=== PATIENT | male | born 1960 | race Caucasian/White ===

== ENCOUNTER → 2017-02-06 | Outpatient (CLI) | payer BC ==
--- NOTE | 2017-02-06 13:29 | XR ---
EXAMINATION TYPE: XR KUB DATE OF EXAM: 02/06/2017 1:17 PM HISTORY: Pain Comparison: 01/14/2014 Single KUB is submitted for interpretation. Findings: Right renal calculi: Multiple right-sided renal calculi seen. The largest lower pole right kidney darian sures 6.5 mm. Right ureteral calculi: None Visualized. Left renal calculi: Multiple left-sided renal calculi seen the largest midpole left kidney measures 7.5 mm. Left ureteral calculi: None Visualized. Pelvic calcifications: Phleboliths and prostate calcifications seen. Bowel gas pattern is unremarkable. No free air. No mass effects. IMPRESSION: 1. Bilateral nephrolithiasis much improved from prior examination. No definite ureteral calculi seen at this time.
== END | disposition home or self-care (01) ==
LOC: RADXRMAIN 13:06
PROVIDERS: ATTEND Urology
DX: N20.0 Calculus of kidney (principal)
CPT/HCPCS: 74000

== ENCOUNTER → 2017-02-06 | Outpatient (CLI) | payer BC | END | disposition home or self-care (01) | LOC: LABWHC1 13:23 | PROVIDERS: ATTEND Urology | DX: R97.20 Elevated prostate specific antigen [PSA] (principal) | CPT/HCPCS: 36415; 84153 ==

== ENCOUNTER → 2017-06-20 | Outpatient (CLI) | payer BC ==
[2017-06-20 11:57] LABS: Basophils % (A) 0 %; CH 30.6; CHCM 35.7; Eosinophils # (A) 0.3 k/uL (0-0.7); Eosinophils % (A) 3 %; HCT 41.1 % (39.0-53.0); HDW 3.01; HGB 14.6 gm/dL (13.0-17.5); Luc # (Auto) 0.17; Luc % (Auto) 2; Lymphocytes # (A) 2.2 k/uL (1.0-4.8); Lymphocytes % (A) 23 %; MCH 30.4 pg (25.0-35.0); MCHC 35.5 g/dL (31.0-37.0); MCV 85.9 fL (80.0-100.0); Mean Platelet Volume 7.1; Monocytes # (A) 0.6 k/uL (0-1.0); Monocytes % (A) 6 %; Neutrophils # (A) 6.2 k/uL (1.3-7.7); Neutrophils % (A) 66 %; RBC 4.79 m/uL (4.30-5.90); RDW 13.1 % (11.5-15.5); WBC 9.5 k/uL (3.8-10.6); WBC (Perox) 9.77
[2017-06-20 12:08] LABS: ALT 42 U/L (21-72); AST 22 U/L (17-59); Anion Gap 12 mmol/L; Blood Urea Nitrogen 18 mg/dL (9-20); Carbon Dioxide 25 mmol/L (22-30); Chloride 105 mmol/L (98-107); Cholesterol 150 mg/dL (<200); Creatine Kinase 84 U/L (55-170); Glucose 106 mg/dL (74-99); HDL Cholesterol 40 mg/dL (40-60); Non-African American GFR(MDRD) >60 (>60 ml/min/1.73 sqM); Potassium 4.5 mmol/L (3.5-5.1); Sodium 142 mmol/L (137-145); Triglycerides 139 mg/dL (<150)
== END | disposition home or self-care (01) ==
LOC: LABWHC1 11:08
PROVIDERS: ATTEND Internal Medicine Cardiovascular Disease
DX: I25.10 Atherosclerotic heart disease of native coronary artery without angina pectoris (principal); I10 Essential (primary) hypertension; E78.2 Mixed hyperlipidemia
CPT/HCPCS: 36415; 80051; 80061; 82550; 82565; 82947; 84450; 84460; 84520; 85025

== ENCOUNTER → 2018-07-03 | Outpatient (CLI) | payer BC ==
[2018-07-03 12:02] LABS: ALT 43 U/L (21-72); AST 21 U/L (17-59); Albumin 4.2 g/dL (3.5-5.0); Alkaline Phosphatase 87 U/L (38-126); Anion Gap 7 mmol/L; Bilirubin, Delta 0.2 mg/dL (0.0-0.2); Bilirubin,Unconjugated 0.5 mg/dL (0.0-1.1); Blood Urea Nitrogen 14 mg/dL (9-20); Calcium 9.6 mg/dL (8.4-10.2); Carbon Dioxide 29 mmol/L (22-30); Chloride 104 mmol/L (98-107); Cholesterol 135 mg/dL (<200); Creatine Kinase 89 U/L (55-170); Glucose 110 mg/dL (74-99); HDL Cholesterol 43 mg/dL (40-60); LDL Cholesterol,Calculated 60 mg/dL (0-99); Potassium 4.7 mmol/L (3.5-5.1); Sodium 140 mmol/L (137-145); Total Bilirubin 0.7 mg/dL (0.2-1.3); Total Protein 6.6 g/dL (6.3-8.2); Triglycerides 158 mg/dL (<150)
[2018-07-03 12:06] LABS: Basophils # (A) 0.1 k/uL (0-0.2); Basophils % (A) 1 %; Eosinophils # (A) 0.3 k/uL (0-0.7); Eosinophils % (A) 3 %; HGB 13.9 gm/dL (13.0-17.5); Lymphocytes # (A) 1.8 k/uL (1.0-4.8); Lymphocytes % (A) 22 %; MCH 29.5 pg (25.0-35.0); MCHC 34.1 g/dL (31.0-37.0); MCV 86.7 fL (80.0-100.0); Mean Platelet Volume 7.4; Monocytes # (A) 0.6 k/uL (0-1.0); Monocytes % (A) 7 %; Neutrophils # (A) 5.1 k/uL (1.3-7.7); Neutrophils % (A) 65 %; Platelet Count 202 k/uL (150-450); RBC 4.72 m/uL (4.30-5.90); WBC 7.8 k/uL (3.8-10.6)
[2018-07-03 12:32] LABS: Prostate Specific Antigen 3.96 ng/mL (0.00-4.00)
[2018-07-03 17:41] LABS: GGT 15 U/L (15-73); LDH 400 U/L (313-618); Phosphorus 4.2 mg/dL (2.5-4.5)
[2018-07-03 19:02] LABS: Hemoglobin A1C 5.6 % (4.0-6.0)
== END | disposition home or self-care (01) ==
LOC: LABWHC1 10:50
PROVIDERS: ATTEND Internal Medicine Cardiovascular Disease
DX: I25.10 Atherosclerotic heart disease of native coronary artery without angina pectoris (principal); E78.5 Hyperlipidemia, unspecified; Z79.899 Other long term (current) drug therapy
CPT/HCPCS: 36415; 80053; 80061; 82248; 82550; 82977; 83036; 83615; 84100; 84153; 84550; 85025

== ENCOUNTER → 2018-08-19 | Outpatient (CLI) | payer BC ==
[2018-08-19 12:54] LABS: Anion Gap 10 mmol/L; Blood Urea Nitrogen 15 mg/dL (9-20); Carbon Dioxide 27 mmol/L (22-30); Chloride 103 mmol/L (98-107); Potassium 4.2 mmol/L (3.5-5.1); Sodium 140 mmol/L (137-145)
== END | disposition home or self-care (01) ==
LOC: LABWHC1 11:34
PROVIDERS: ATTEND Internal Medicine Cardiovascular Disease
DX: I10 Essential (primary) hypertension (principal); Z79.899 Other long term (current) drug therapy
CPT/HCPCS: 36415; 80051; 82565; 84520

== ENCOUNTER → 2019-07-08 | Outpatient (CLI) | payer BC ==
[2019-07-08 09:22] LABS: Basophils # (A) 0.1 k/uL (0-0.2); Basophils % (A) 1 %; Eosinophils # (A) 0.3 k/uL (0-0.7); Eosinophils % (A) 4 %; HCT 43.1 % (39.0-53.0); HGB 14.7 gm/dL (13.0-17.5); Lymphocytes # (A) 1.7 k/uL (1.0-4.8); Lymphocytes % (A) 19 %; MCH 29.8 pg (25.0-35.0); MCHC 34.1 g/dL (31.0-37.0); MCV 87.4 fL (80.0-100.0); Mean Platelet Volume 7.8; Monocytes # (A) 0.6 k/uL (0-1.0); Monocytes % (A) 7 %; Neutrophils % (A) 68 %; Platelet Count 216 k/uL (150-450); RBC 4.93 m/uL (4.30-5.90); RDW 15.5 % (11.5-15.5); WBC 8.7 k/uL (3.8-10.6)
[2019-07-08 18:07] LABS: African American GFR (CKD) 83.5 (60.0-200.0); Albumin 4.2 g/dL (3.80-4.90); Albumin/Globulin Ratio 2.1 (1.60-3.17); Anion Gap 9.4 mmol/L (4.00-12.00); BUN/Creat Ratio 11.82 Ratio (12.00-20.00); Calcium 9.5 mg/dL (8.7-10.3); Carbon Dioxide 26.6 mmol/L (21.6-31.8); LDL Cholesterol,Calculated 69.4 mg/dL (0.0-131.0); Potassium 4.1 mmol/L (3.5-5.5); Total Bilirubin 0.7 mg/dL (0.3-1.2); Total Protein 6.2 g/dL (6.2-8.2); Uric Acid 5.3 mg/dL (3.7-8.7); VLDL Calculation 27.6 mg/dL (5.00-40.00)
[2019-07-08 18:15] LABS: T4, Free (Free Thyroxine) 1.1 ng/dL (0.80-1.80)
[2019-07-08 18:41] LABS: Hemoglobin A1C 6.1 % (4.0-6.0)
== END | disposition home or self-care (01) ==
LOC: LABWHC1 08:38
PROVIDERS: ATTEND Internal Medicine Cardiovascular Disease
DX: E78.5 Hyperlipidemia, unspecified (principal); I25.10 Atherosclerotic heart disease of native coronary artery without angina pectoris
CPT/HCPCS: 36415; 80053; 80061; 82977; 83036; 83615; 84100; 84153; 84439; 84443; 84550; 85025

== ENCOUNTER 2020-06-21 08:35 | Day surgery (SDC) | payer BC ==
[~2020-06-21 08:35] MED LIST: LACTATED RINGERS 1,000 ML IV SCH
[2020-06-21 09:16] VITALS: TEMP 97.8
[2020-06-21] MEDS ORDERED: LACTATED RINGERS 1,000 ML IV ONE (09:17)
[2020-06-21] MEDS ORDERED: LIDOCAINE 1% (10MG/ML) FOR IV START INTRADERMA ONE (09:18)
--- NOTE | 2020-06-21 09:53 | P.GSHP ---
History of Present Illness H&P Date: 06/21/20 Chief Complaint: Colon cancer screening A today for screening colonoscopy. Last colonoscopy 10 years ago. No bowel complaints. Past Medical History Past Medical History: Coronary Artery Disease (CAD), Hyperlipidemia, Osteoarthritis (OA), Prostate Disorder Additional Past Medical History / Comment(s): RENAL CALCULI. HEMOROIDS. History of Any Multi-Drug Resistant Organisms: None Reported Past Surgical History: Coronary Bypass/CABG, Heart Catheterization With Stent Additional Past Surgical History / Comment(s): TURP 2011. LITHOTRIPSY. Past Anesthesia/Blood Transfusion Reactions: No Reported Reaction Date of Last Stent Placement:: 2018 Past Psychological History: No Psychological Hx Reported Smoking Status: Never smoker Past Alcohol Use History: Occasional Additional Drug Use History / Comment(s): [employer] Medications and Allergies Home Medications Medication Instructions Recorded Confirmed Type Aspirin [Adult Low Dose Aspirin EC] 81 mg PO DAILY 06/17/20 06/17/20 History Atorvastatin [Lipitor] 80 mg PO HS 06/17/20 06/17/20 History Calcium Carbonate [Tums] 1 - 2 tab PO DAILY PRN 06/17/20 06/17/20 History Clopidogrel [Plavix] 75 mg PO QAM 06/17/20 06/17/20 History Hydrochlorothiazide 25 mg PO QAM 06/17/20 06/17/20 History Metoprolol Succinate [Toprol XL] 100 mg PO HS 06/17/20 06/17/20 History Ramipril 10 mg PO QAM 06/17/20 06/17/20 History Allergies Allergy/AdvReac Type Severity Reaction Status Date / Time No Known Allergies Allergy Verified 06/17/20 11:18 Surgical - Exam Vital Signs Temp Pulse Resp BP Pulse Ox 97.8 F 57 L 18 169/91 98 06/21/20 09:15 06/21/20 09:15 06/21/20 09:15 06/21/20 09:15 06/21/20 09:15 Physical exam: General: Well-developed, well-nourished HEENT: Normocephalic, sclerae nonicteric Abdomen: Nontender, nondistended Extremities: No edema Neuro: Alert and oriented Assessment and Plan (1) Colon cancer screening Narrative/Plan: Will proceed with colonoscopy at this time Current Visit: Yes Status: Acute Code(s): Z12.11 - ENCOUNTER FOR SCREENING FOR MALIGNANT NEOPLASM OF COLON SNOMED Code(s): 767153322
[2020-06-21] MEDS ORDERED: PROPOFOL 10 MG/ML 20 ML VIAL IV ONE (09:58)
--- NOTE | 2020-06-21 10:17 | P.PCN ---
Date of Procedure: 06/21/20 Procedure(s) Performed: PREOPERATIVE DIAGNOSIS: Colon cancer screening POSTOPERATIVE DIAGNOSIS: Diverticulosis PROCEDURE: Colonoscopy ANESTHESIA: MAC SURGEON: Todd Hamlin M.D. SPECIMENS: None ENDOSCOPIC PROCEDURE: The patient was placed on the endoscopy table in the left decubitus position. The Olympus colonoscope was inserted into the anus and passed under direct visualization to the base of the cecum. The appendiceal orifice was visualized. From that point the scope was slowly withdrawn inspe cting all surfaces carefully. There were no neoplastic inflammatory or polypoid lesions throughout the cecum, ascending, transverse, descending, sigmoid and rectum. There was mild diverticulosis noted scattered throughout the colon. Retroflexion at the anus revealed no evidence of significant hemorrhoidal disease. Digital rectal examination was normal. No evidence of fissures or significant hemorrhoids noted at this time. The patient was taken to the recovery room in stable condition per anesthesia guidelines. RECOMMENDATIONS: Increase fiber. Follow-up colonoscopy 10 years.
[2020-06-21 11:00] VITALS: RESP 20
[2020-06-21 11:04] VITALS: BP 148/90; PULSE 70
== END 2020-06-21 11:04 | disposition home or self-care (01) ==
LOC: ORWHC2ENDO 08:35
PROVIDERS: ATTEND Surgery
DX: K57.30 Diverticulosis of large intestine without perforation or abscess without bleeding (principal); Z87.19 Personal history of other diseases of the digestive system; I25.10 Atherosclerotic heart disease of native coronary artery without angina pectoris; E78.5 Hyperlipidemia, unspecified; M19.90 Unspecified osteoarthritis, unspecified site; N42.9 Disorder of prostate, unspecified; Z87.442 Personal history of urinary calculi; Z95.1 Presence of aortocoronary bypass graft; Z95.5 Presence of coronary angioplasty implant and graft; Z79.82 Long term (current) use of aspirin; Z79.02 Long term (current) use of antithrombotics/antiplatelets; Z79.899 Other long term (current) drug therapy
CPT/HCPCS: 45378; J2704

== ENCOUNTER → 2020-07-07 | Outpatient (CLI) | payer BC ==
[2020-07-07 08:29] LABS: HCT 43.2 % (39.0-53.0); HGB 14.6 gm/dL (13.0-17.5); MCH 29.2 pg (25.0-35.0); MCHC 33.8 g/dL (31.0-37.0); MCV 86.5 fL (80.0-100.0); Platelet Count 251 k/uL (150-450); RDW 13.5 % (11.5-15.5); WBC 9.5 k/uL (3.8-10.6)
[2020-07-07 16:54] LABS: African American GFR (CKD) 74.7 (60.0-200.0); Albumin 4.3 g/dL (3.80-4.90); Albumin/Globulin Ratio 2.05 (1.60-3.17); Anion Gap 8.8 mmol/L (4.00-12.00); BUN/Creat Ratio 10.83 Ratio (12.00-20.00); Calcium 9.4 mg/dL (8.7-10.3); Carbon Dioxide 28.2 mmol/L (21.6-31.8); Chol/HDL Ratio 4.03; Globulin 2.1 g/dL (1.6-3.3); LDL Cholesterol,Calculated 66.4 mg/dL (0.0-131.0); Non-African American GFR(CKD) 64.4 (60.0-200.0); Total Bilirubin 1.3 mg/dL (0.2-1.2); Total Protein 6.4 g/dL (6.2-8.2); VLDL Calculation 42.6 mg/dL (5.00-40.00)
[2020-07-07 17:02] LABS: Prostate Specific Antigen 4.6 ng/mL (0.0-4.5)
== END | disposition home or self-care (01) ==
LOC: LABWHC1 07:59
PROVIDERS: ATTEND Internal Medicine Cardiovascular Disease
DX: E78.5 Hyperlipidemia, unspecified (principal); Z12.5 Encounter for screening for malignant neoplasm of prostate; I10 Essential (primary) hypertension
CPT/HCPCS: 36415; 80053; 80061; 82550; 84153; 85027

== ENCOUNTER → 2021-11-01 | Outpatient (CLI) | payer BC ==
[2021-11-01 15:35] LABS: Basophils # (A) 0.04 X 10*3/uL (0.00-0.10); Basophils % (A) 0.5 %; Eosinophils # (A) 0.33 X 10*3/uL (0.04-0.35); Eosinophils % (A) 3.8 %; HCT 43.6 % (39.6-50.0); HGB 14.4 g/dL (13.0-17.0); Lymphocytes # (A) 1.49 X 10*3/uL (0.90-5.00); Lymphocytes % (A) 17.3 %; MCH 29.1 pg (27.0-32.0); MCV 88.1 fL (80.0-97.0); Monocytes # (A) 0.86 X 10*3/uL (0.20-1.00); Neutrophils # (A) 5.84 X 10*3/uL (1.80-7.70); Neutrophils % (A) 67.9 %; Platelet Count 219 X 10*3/uL (140-440); RBC 4.95 X 10*6/uL (4.40-5.60); RDW 13.7 % (11.5-14.5)
[2021-11-01 16:29] LABS: ALT 33 U/L (10-49); AST 25 U/L (14-35); Alkaline Phosphatase 130 U/L (41-126); Carbon Dioxide 25.6 mmol/L (20.0-27.5); Chloride 104 mmol/L (96-109); Chol/HDL Ratio 3.93 Ratio; Creatine Kinase 99 U/L (35-257); Glucose 134 mg/dL (70-110); LDL Cholesterol,Calculated 89.9 mg/dL (0.0-131.0); Potassium 4.7 mmol/L (3.5-5.5); Sodium 140 mmol/L (135-145)
== END | disposition home or self-care (01) ==
LOC: LABWHC1 10:36
PROVIDERS: ATTEND Internal Medicine Cardiovascular Disease
DX: I10 Essential (primary) hypertension (principal); I25.10 Atherosclerotic heart disease of native coronary artery without angina pectoris; I25.2 Old myocardial infarction; E78.5 Hyperlipidemia, unspecified
CPT/HCPCS: 36415; 80051; 80061; 82550; 82947; 83036; 84075; 84439; 84443; 84450; 84460; 85025

== ENCOUNTER → 2022-02-08 | Outpatient (CLI) | payer BC ==
[2022-02-08 15:27] LABS: AST 17 U/L (14-35); African American GFR (CKD) 67.3 (60.0-200.0); Blood Urea Nitrogen 14.7 mg/dL (9.0-27.0); Carbon Dioxide 23.1 mmol/L (20.0-27.5); Chloride 103 mmol/L (96-109); Glucose 119 mg/dL (70-110); Non-African American GFR(CKD) 58.1 (60.0-200.0); Potassium 4.3 mmol/L (3.5-5.5); Sodium 138 mmol/L (135-145)
[2022-02-08 15:32] LABS: ALT 18 U/L (10-49); Chol/HDL Ratio 2.95 Ratio; Creatine Kinase 93 U/L (35-257); LDL Cholesterol,Calculated 57.7 mg/dL (0.0-131.0)
== END | disposition home or self-care (01) ==
LOC: LABWHC1 09:53
PROVIDERS: ATTEND Internal Medicine Cardiovascular Disease
DX: I10 Essential (primary) hypertension (principal); I25.9 Chronic ischemic heart disease, unspecified; I25.10 Atherosclerotic heart disease of native coronary artery without angina pectoris; E78.2 Mixed hyperlipidemia
CPT/HCPCS: 36415; 80051; 80061; 82550; 82565; 82947; 83036; 84153; 84450; 84460; 84520

== ENCOUNTER → 2022-05-03 | Outpatient (CLI) | payer BC ==
--- NOTE | 2022-05-03 17:02 | CT ---
EXAMINATION TYPE: CT urogram wo/w con DATE OF EXAM: 05/03/2022 COMPARISON: None HISTORY: 61-year-old male R31.1, microscopic hematuria TECHNIQUE: Contiguous axial scanning of the abdomen and pelvis performed without and with IV Contrast , patient injected with 70 mL of Isovue 300. Delayed images through the kidneys and bladder were obta ined. Coronal/sagittal reconstructions performed. 3-D reconstructions generated on a dedicated workst at[employer]. CT DLP: 2327.5 mGycm Automated exposure control for dose reduction was used. FINDINGS: Partially visualized median sternotomy wires. Heart upper limits of normal in size without pericardia l effusion. Calcification or device/stent along the right side of the heart. Some subendocardial fat deposition a t the apex of the heart suggesting prior apical infarct. Lung bases are clear without pleural effusion. Tiny hiatal hernia. No focal liver lesion or biliary ductal dilatation. Portal venous system is patent. Cholecystectomy c lips. Adrenal glands, spleen, and pancreas within normal limits. Approximately 6 nonobstructing right renal calculi, largest measuring 8 mm. We do note a large 1.2 cm stone at the right ureteral orifice and a 1.5 cm right lateral bladder wall diverticulum. On the left, there are 3 nonobstructive renal calculi measuring up to 6 mm. There is mild to moderate hydronephrosis and hydroureter. There is a 5 mm calculus distal third left ureter followed by a larg er 9 mm calculus just below, proximal to the UVJ. 2 additional bladder calculi are present adjacent to the left ureteral orifice measuring 7 mm each. Subcentimeter cortical hypodensities right kidney too small for CT characterization, likely small cys ts. Asymmetric delayed excretion of contrast from the left kidney would be in keeping with ureteral o bstruction. No suspicious filling defect within the renal collecting systems or along the course of the right ure ter. The left ureter is dilated and nonopacified. No dilated small bowel, free fluid, or free air. No mesenteric or retroperitoneal lymphadenopathy. Portions of a normal appendix is seen. Mild stool burden. Mild sigmoid diverticulosis. No pericolonic inflammatory change. Large prostate gland measuring up to 5.7 cm impressing onto the base of the bladder. No abnormal flui d collection in the pelvis or pelvic lymphadenopathy. Bones: Moderate degenerative change in both hips. Mild at the SI joints. Facet arthropathy mid to low er lumbar spine. Mild multilevel degenerative disc disease. IMPRESSION: 1. BILATERAL RENAL CALCULI MEASURING UP TO 8 MM ON THE RIGHT AND 6 MM ON THE LEFT. 2. There are a couple calculi in the distal left ureter measuring 5 mm and 9 mm. This contributes to nfre-en-wcpstpam obstructive uropathy. 3. Three bladder calculi, one adjacent to the right ureteral orifice and 2 adjacent to the left urete ral orifice measuring up to 1.2 cm. 4. Prostatomegaly at 5.7 cm wide. Bladder wall thickening likely secondary to BPH and a degree of chr onic bladder outlet obstruction. A 1.5 cm bladder wall diverticulum on the right is noted. 5. Sigmoid diverticulosis without acute diverticulitis. Tiny hiatal hernia. 6. Incidental: Some subendocardial fat deposition at the apex of the heart suggesting prior apical my ocardial infarct.
== END ==
LOC: RADCTMAIN 13:26
PROVIDERS: ATTEND Urology
DX: N20.0 Calculus of kidney (principal); N40.0 Benign prostatic hyperplasia without lower urinary tract symptoms; K57.30 Diverticulosis of large intestine without perforation or abscess without bleeding; N21.0 Calculus in bladder; K44.9 Diaphragmatic hernia without obstruction or gangrene
CPT/HCPCS: 74178; 74400; Q9967

== ENCOUNTER 2022-05-15 11:51 | Emergency (ER) | payer BC ==
[2022-05-15 11:57] VITALS: BP 164/94; PULSE 65; RESP 18; TEMP 98.4
== END 2022-05-15 12:17 | disposition left against medical advice (07) ==
LOC: EC 11:51
DX: Z53.21 Procedure and treatment not carried out due to patient leaving prior to being seen by health care provider (principal); I16.1 Hypertensive emergency
CPT/HCPCS: 93005; 99499

== ENCOUNTER → 2022-06-07 | Outpatient (CLI) | payer BC ==
[2022-06-07 19:23] LABS: ALT 27 U/L (10-49); AST 23 U/L (14-35); Chol/HDL Ratio 2.81 Ratio; Creatine Kinase 120 U/L (35-257); Glucose 114 mg/dL (70-110); LDL Cholesterol,Calculated 58.6 mg/dL (0.0-131.0)
== END | disposition home or self-care (01) ==
LOC: LABWHC1 10:45
PROVIDERS: ATTEND Internal Medicine Cardiovascular Disease
DX: E78.00 Pure hypercholesterolemia, unspecified (principal); Z79.899 Other long term (current) drug therapy
CPT/HCPCS: 36415; 80061; 82550; 82947; 84450; 84460

== ENCOUNTER 2023-12-14 00:38 | Emergency (ER) | payer BC ==
[2023-12-14 00:44] LABS: Glucose,Whole Blood 195 mg/dL (70-110)
[2023-12-14] MEDS ORDERED: Alteplase PER PHARMACY Stroke 1 EACH MISC MISCELLANE PRN (00:48)
[2023-12-14] MEDS ORDERED: ALTEPLASE 77 MG in EMPTY BAG 1 BAG IV STA (00:50)
[2023-12-14] MEDS ORDERED: ALTEPLASE BOLUS FOR STROKE 9 MG in EMPTY SYRINGE 1 SYR IV STA (00:50)
--- NOTE | 2023-12-14 00:52 | ED ---
General Adult HPI - General Stated complaint: STROKE Time Seen by Provider: 12/14/23 00:41 - History of Present Illness Initial comments: Patient is a 63-year-old male who presents emergency Department complaining of strokelike symptoms. Last known well was midnight, proximal to 40 minutes prior to arrival. Patient does take aspirin and Plavix. Patient was found on the ground. Unknown if he fell or not. Patient has substantial left-sided deficits as well as dysarthria. Presents for strokelike symptoms. His no other acute complaints at this time. - Related Data Home Medications Medication Instructions Recorded Confirmed Aspirin [Adult Low Dose Aspirin EC] 81 mg PO DAILY 06/17/20 06/17/20 Atorvastatin [Lipitor] 80 mg PO HS 06/17/20 06/17/20 Calcium Carbonate [Tums] 1 - 2 tab PO DAILY PRN 06/17/20 06/17/20 Clopidogrel [Plavix] 75 mg PO QAM 06/17/20 06/17/20 Metoprolol Succinate [Toprol XL] 100 mg PO HS 06/17/20 06/17/20 hydroCHLOROthiazide 25 mg PO QAM 06/17/20 06/17/20 ramipriL [Ramipril] 10 mg PO QAM 06/17/20 06/17/20 Allergies Allergy/AdvReac Type Severity Reaction Status Date / Time No Known Allergies Allergy Verified 05/15/22 11:57 Review of Systems ROS Statement: Those systems with pertinent positive or pertinent negative responses have been documented in the HPI. ROS Other: All systems not noted in ROS Statement are negative. Past Medical History Past Medical History: Coronary Artery Disease (CAD), Hyperlipidemia, Hypertension, Osteoarthritis (OA), Prostate Disorder Additional Past Medical History / Comment(s): RENAL CALCULI. HEMOROIDS. History of Any Multi-Drug Resistant Organisms: None Reported Past Surgical History: Coronary Bypass/CABG, Heart Catheterization With Stent Additional Past Surgical History / Comment(s): TURP 2012. LITHOTRIPSY. Past Anesthesia/Blood Transfusion Reactions: No Reported Reaction Date of Last Stent Placement:: 2018 Past Psychological History: No Psychological Hx Reported Smoking Status: Never smoker Past Alcohol Use History: Occasional Past Drug Use History: None Reported General Exam - General Exam Comments Initial Comments: General: Appears in mild distress. HEAD: Normal with no signs of head trauma. EYES: PERRLA, EOMI, conjunctiva normal, no discharge. Pupils are 2-3 mm equal bilaterally. ENT: Hearing grossly intact, normal oropharynx. RESPIRATORY: Clear breath sounds bilaterally. No wheezes, rales, or rhonchi. C/V: Regular rate and rhythm. S1 and S2 auscultated, no edema, peripheral pulses 2+ and intact throughout ABD: Abd is soft, nontender, nondistended EXT: Normal range of motion, no obvious deformity SKIN: No rashes or lesions observed on exposed skin. NEURO: Alert and oriented 2. Confused to place. NIH is 12. Patient receives 1. for dysarthria, 2 points for ataxia in 2 limbs, 2 points for left leg and 2 points for left arm drift and weakness, 2 points for left-sided facial droop, 1 point for partial hemianopsia, as well as 2 points for forced gaze palsy to the right. Last known well was midnight, 40 minutes prior to arrival. Course Vital Signs 12/14/23 12/14/23 12/14/23 00:42 01:00 01:15 Temperature 98.6 F Pulse Rate 67 64 66 Respiratory 18 12 20 Rate Blood Pressure 167/87 171/90 167/84 O2 Sat by Pulse 96 94 L 98 Oximetry 12/14/23 12/14/23 01:30 01:45 Temperature Pulse Rate 62 68 Respiratory 20 26 H Rate Blood Pressure 177/94 145/86 O2 Sat by Pulse 98 96 Oximetry Medical Decision Making - Medical Decision Making Was pt. sent in by a medical professional or institution (SHAWNA Conner, C[facility] DIGGER, urgent care, hospital, or detention...) When possible be specific @ -No Did you speak to anyone other than the patient for history (EMS, parent, family, police, friend...)? What history was obtained from this source @ -EMS provided history for the patient. Did you review nursing and triage notes (agree or disagree)? Why? @ -I reviewed and agree with nursing and triage notes Were old charts reviewed (outside hosp., previous admission, EMS record, old EKG, old radiological studies, urgent care reports/EKG's, detention records)? Report findings @ -Old charts reviewed. Differential Diagnosis (chest pain, altered mental status, abdominal pain women, abdominal pain men, vaginal bleeding, weakness, fever, dyspnea, syncope, headache, dizziness, GI bleed, back pain, seizure, CVA, palpatations, mental health, musculoskeletal)? @ -Differential CVA Ischemic stroke, hemorrhagic stroke, brain tumor, atypical migraine, Wernicke's encephalopathy, seizure, multiple sclerosis, meningitis, encephalitis, hypoglycemia, Guillain-Foley, electrolytes disturbance, myasthenia gravis.... This is not meant to be an all-inclusive list EKG interpreted by me (3pts min.). @ -As above X-rays interpreted by me (1pt min.). @ -Chest x-ray reveals no obvious acute cardio pulmonary process. CT interpreted by me (1pt min.). @ -CT brain reveals no obvious acute intracranial hemorrhage however there is a hyperdensity suggestive of right MCA sign and large vessel occlusion causing his current symptoms. U/S interpreted by me (1pt. min.). @ -None done What testing was considered but not performed or refused? (CT, X-rays, U/S, labs)? Why? @ -None What meds were considered but not given or refused? Why? @ -None Did you discuss the management of the patient with other professionals (professionals i.e. , PA, CLAY DIGGER, lab, RT, psych nurse, criminal justice social worker, hotbed transfer operator, teacher, hazard mitigation officer, casey saw operator)? Give summary @ -Discussed with Dr. Aguirre of neuro critical care. Was in agreement with workup. He will evaluate imaging of the patient as well. Was in agreement with plan for code alteplase. Dr. Aguirre interpreted the CT brain and was concerned for right hyperdensity MCA concerning for a large vessel occlusion. Recommended administering alteplase and arranging for transfer to [facility].I spoke with Dr. Ramon physician radiology practitioner assistant at [facility] and updated her. Patient will be stat transfer. I spoke with Dr. Dalal at [facility] of the ER who was in agreement with the plan as well. Plan is for the patient to go immediately to [facility] but may stop in the emergency department. Dr. Coreas of radiology also contacted me regarding the imaging results. Was smoking cessation discussed for >3mins.? @ -No Was critical care preformed (if so, how long)? @ -Yes, 36 minutes. Were there social determinants of health that impacted care today? How? (Homelessness, low income, unemployed, alcoholism, drug addiction, transportation, low edu. Level, literacy, decrease access to med. care, alf, rehab)? @ -No Was there de-escalation of care discussed even if they declined (Discuss DNR or withdrawal of care, Hospice)? DNR status @ -No What co-morbidities impacted this encounter? (DM, HTN, Smoking, COPD, CAD, Ca ncer, CVA, ARF, Chemo, Hep., AIDS, mental health diagnosis, sleep apnea, morbid obesity)? @ -None Was patient admitted / discharged? Hospital course, mention meds given and route, prescriptions, significant lab abnormalities, going to OR and other pertinent info. @ -Based on the patient's presentation and physical exam, presents with stroke like symptoms. NIH is 12. Last known well is midnight, 40 minutes ago. Patient is made a code alteplase as he does fall inside the window. Patient is on what appears to be only aspirin and Plavix. Vital signs are within except for limits at this time.Accu-Chek within acceptable limits. I spoke with Dr. Aguirre of neuro critical care who is in agreement with the plan. He will follow up on imaging as well. Patient is a candidate for alteplase at this time. Alteplase was ordered. Laboratory studies are pending. CT brain reveals no obvious intracranial hemorrhage or an injury however patient does have a right MCA sign suggestive of a vessel occlusion. CTA still pending. Discussed these results with Dr. Aguirre who was interpreting imaging and recommended transfer to [facility] for thrombectomy. Was in agreement to administering alteplase at this time. Cardene drip will be ordered and hung in the event that patient requires it for hypertension. I updated the patient's family who consented for the patient to receive TPA. I spoke with patient's , Mary Ellen who consented for the patient as he cannot consent for himself at this time. We discussed risks and benefits and believe that the benefits outweigh the risks at this time. They were in agreement this plan. TPA was started at 0105. We began arranging for transfer to [facility] at approximately 0100.I spoke with Dr[address] Ramon physician radiology practitioner assistant Ciara at [facility] and updated her. Patient will be stat transfer. I spoke with [facility] Dalal at [facility] of the ER who was in agreement with the plan as well. Plan is for the patient to go immediately to [facility] but may stop in the emergency department. Cardene drip was started as the patient began having higher blood pressures 187/107 as he became more distressed regarding his current situation. Drip started at 5 mg. Goal SBP <185, and goal DBP <110. Undiagnosed new problem with uncertain prognosis? @ -No Drug Therapy requiring intensive monitoring for toxicity (Heparin, Nitro, Insulin, Cardizem)? @ -No Were any procedures done? @ -No Diagnosis/symptom? @ -CVA Acute, or Chronic, or Acute on Chronic? @ -Acute Uncomplicated (without systemic symptoms) or Complicated (systemic symptoms)? @ -Complicated Side effects of treatment? @ -No Exacerbation, Progression, or Severe Exacerbation? @ -No Poses a threat to life or bodily function? How? (Chest pain, [place], [place], pneumonia, PE, COPD, DKA, ARF, appy, cholecystitis, CVA, Diverticulitis, Homicidal, Suicidal, threat to staff... and all critical care pts) @ -Yes - Lab Data Result diagrams: 12/14/23 01:01 Lab Results 12/14/23 12/14/23 12/14/23 Range/Units 00:42 01:01 01:01 WBC 11.0 H (3.8-10.6) k/uL RBC 4.52 (4.30-5.90) m/uL Hgb 13.9 (13.0-17.5) gm/dL Hct 38.0 L (39.0-53.0) % MCV 84.1 (80.0-100.0) fL MCH 30.8 (25.0-35.0) pg MCHC 36.6 (31.0-37.0) g/dL RDW 13.1 (11.5-15.5) % Plt Count 245 (150-450) k/uL MPV 7.9 Neutrophils % 69 % Lymphocytes % 20 % Monocytes % 7 % Eosinophils % 3 % Basophils % 1 % Neutrophils # 7.5 (1.3-7.7) k/uL Lymphocytes # 2.2 (1.0-4.8) k/uL Monocytes # 0.7 (0-1.0) k/uL Eosinophils # 0.3 (0-0.7) k/uL Basophils # 0.1 (0-0.2) k/uL PT 10.8 (10.0-12.5) sec INR 1.0 (<1.2) APTT 23.4 (22.0-30.0) sec POC Glucose (mg/dL) 195 H (70-110) mg/dL POC Glu Loom Checker ID Valerie Hicks Creatine Kinase ([id number]) U/L Troponin I (0.000-0.034) ng/mL 12/14/23 12/14/23 Range/Units 01:01 01:01 WBC (3.8-10.6) k/uL RBC (4.30-5.90) m/uL Hgb (13.0-17.5) gm/dL Hct (39.0-53.0) % MCV (80.0-100.0) fL MCH (25.0-35.0) pg MCHC (31.0-37.0) g/dL RDW (11.5-15.5) % Plt Count (150-450) k/uL MPV Neutrophils % % Lymphocytes % % Monocytes % % Eosinophils % % Basophils % % Neutrophils # (1.3-7.7) k/uL Lymphocytes # (1.0-4.8) k/uL Monocytes # (0-1.0) k/uL Eosinophils # (0-0.7) k/uL Basophils # (0-0.2) k/uL PT (10.0-12.5) sec INR (<1.2) APTT (22.0-30.0) sec POC Glucose (mg/dL) (70-110) mg/dL POC Glu Loom Checker ID Creatine Kinase 64 (55-170) U/L Troponin I <0.012 (0.000-0.034) ng/mL - EKG Data -: EKG Interpreted by Me EKG Comments: 12-lead Electrocardiogram Interpretation Note EKG was reviewed and interpreted by myself. 12-lead ECG performed at 0058 is interpreted by me as revealing normal sinus rhythm at a rate of 64 beats per mi nute. [place] is normal. [place] interval is 185 ms, QRS duration is 122 ms, QTc is 415 ms.. There were no ST or T wave abnormalities to suggest myocardial ischemia or injury. R wave progression across the precordium was satisfactory. By my interpretation this EKG is non-diagnostic for acute ischemia. Critical Care Time Critical Care Time: Yes Total Critical Care Time: 36 Disposition Clinical Impression: Cerebrovascular accident (CVA) Disposition: OTHER INSTITUTION NOT DEFINED Condition: Serious Referrals: Rahul Ceballos MD [Primary Care Provider] - 1-2 days Time of Disposition: 01:10 - Out of Hospital Transfer - Req. Specs Out of Hospital Transfer - Requested Specifics: Other Emergency Center (Transfer to [facility] for evaluation by neuro critical care for thrombectomy. Accepting physician is Dr. Ramon and ED physician Dr. Dalal.)
--- NOTE | 2023-12-14 00:58 | CT ---
EXAMINATION TYPE: CT brain wo con for TPA DATE OF EXAM: 12/14/2023 HISTORY: CODE STROKE. Acute onset neuro deficit. Automated Exposure Control for Dose Reduction was Utilized. TECHNIQUE: CT scan of the head is performed without contrast. COMPARISON: None. FINDINGS: There is no acute intracranial hemorrhage or midline shift identified. There is mild to m oderate diffuse ventricular and sulcal prominence consistent with diffuse age-related cerebral atroph y. Aparicio-white matter differentiation is fairly well preserved. Subtle bilateral basal ganglia calcif ications are seen. The calvarium is intact. The globes are intact and the visualized sinuses are bhavana r. IMPRESSION: No acute intracranial hemorrhage or midline shift.
--- NOTE | 2023-12-14 01:01 | XR ---
EXAMINATION TYPE: XR chest 1V portable DATE OF EXAM: 12/14/2023 COMPARISON: NONE HISTORY: Altered mental status TECHNIQUE: Single AP portable frontal semiupright view of the chest is obtained. FINDINGS: Slightly suboptimal as entire right lateral lung base is not included. Overlying sternal w ires are seen. There is no focal air space opacity, pleural effusion, or pneumothorax seen. The card iac silhouette size is mildly enlarged. The osseous structures are intact. IMPRESSION: Suboptimal study. Mild cardiomegaly without definitive acute pulmonary process.
[2023-12-14 01:13] LABS: Basophils # (A) 0.1 k/uL (0-0.2); Basophils % (A) 1 %; Eosinophils # (A) 0.3 k/uL (0-0.7); Eosinophils % (A) 3 %; HGB 13.9 gm/dL (13.0-17.5); Lymphocytes # (A) 2.2 k/uL (1.0-4.8); Lymphocytes % (A) 20 %; MCH 30.8 pg (25.0-35.0); MCHC 36.6 g/dL (31.0-37.0); MCV 84.1 fL (80.0-100.0); Mean Platelet Volume 7.9; Monocytes # (A) 0.7 k/uL (0-1.0); Monocytes % (A) 7 %; Neutrophils # (A) 7.5 k/uL (1.3-7.7); Neutrophils % (A) 69 %; Platelet Count 245 k/uL (150-450); RBC 4.52 m/uL (4.30-5.90); RDW 13.1 % (11.5-15.5)
[2023-12-14] MEDS ORDERED: niCARdipine 20 MG in SODIUM CHLORIDE 0.9% 192 ML IV SCH (01:15)
[2023-12-14 01:19] VITALS: TEMP 98.6
[2023-12-14 01:21] LABS: Partial Thromboplastin Time 23.4 sec (22.0-30.0); Prothrombin Time 10.8 sec (10.0-12.5)
--- NOTE | 2023-12-14 01:24 | CT ---
EXAMINATION TYPE: CT angio head neck DATE OF EXAM: 12/14/2023 HISTORY: CODE STROKE acute onset neurologic deficit. COMPARISON: None. CT DLP: 635.7 mGycm. Automated Exposure Control for Dose Reduction was Utilized. TECHNIQUE: CTA scan of the head and neck is performed with IV Contrast, patient injected with 65 mL of Isovue 370, axial images are obtained, coronal and sagittal reformatted images are reviewed. 3D re constructed images are created on an independent workstation and reviewed. FINDINGS: Carotid/Vascular Structures: Normal three-vessel origin from aortic arch without significant stenosis . No significant stenosis in the common or the internal carotid arteries bilaterally. Xwiu-mz-eaautps e peripheral calcified plaque anteriorly in the left common carotid artery is noted. Mild to moderate calcified plaque left carotid bulb. Minimal calcified plaque right carotid bulb. Patent external car otid arteries bilaterally without significant stenosis. The vertebral arteries are codominant and pat ent to the basilar junction. No large vessel occlusion or aneurysm in posterior circulation. Patent a nterior communicating artery is seen. There is complete thrombosis of the entire right middle cerebra l artery. Some reconstitution at the trifurcation is seen. Thrombosis likely begins in the distal rig ht internal carotid artery. Flow into the right anterior cerebral artery is likely on basis of patent anterior communicating artery. Other: Mild to moderate multilevel spurring in the cervical spine. Some prominent but subcentimeter l ymph nodes throughout the neck bilaterally are seen. 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 Thrombosis likely begins in the d istal right internal carotid artery. Critical results communicated to ordering emergency room physician via phone call at time of dictatio n. NASCET criteria was used in interpretation of this exam?
[2023-12-14] MEDS ORDERED: SODIUM CHLORIDE 0.9% 50 ML MINI-BAG IV ONE (01:50)
[2023-12-14 02:09] VITALS: BP 145/86; PULSE 68; RESP 26
[2023-12-14 03:23] LABS: ALT 18 U/L (4-49); AST 18 U/L (17-59); African American GFR (CKD) >90 (>60 ml/min/1.73 sqM); Albumin 3.5 g/dL (3.5-5.0); Alkaline Phosphatase 98 U/L (38-126); Anion Gap 12 mmol/L; Blood Urea Nitrogen 14 mg/dL (9-20); Calcium 8.8 mg/dL (8.4-10.2); Carbon Dioxide 22 mmol/L (22-30); Chloride 102 mmol/L (98-107); Creatine Kinase 63 U/L (55-170); Glucose 173 mg/dL (74-99); Non-African American GFR(CKD) 82 (>60 ml/min/1.73 sqM); Potassium 3.6 mmol/L (3.5-5.1); Sodium 136 mmol/L (137-145); Total Bilirubin 0.6 mg/dL (0.2-1.3)
== END 2023-12-14 02:06 | disposition other institution (70) ==
LOC: EC 00:38
DX: I63.9 Cerebral infarction, unspecified (principal); I10 Essential (primary) hypertension; E78.5 Hyperlipidemia, unspecified; I25.10 Atherosclerotic heart disease of native coronary artery without angina pectoris; M19.90 Unspecified osteoarthritis, unspecified site; Z79.02 Long term (current) use of antithrombotics/antiplatelets; Z79.82 Long term (current) use of aspirin; Z79.899 Other long term (current) drug therapy; Z95.1 Presence of aortocoronary bypass graft
CPT/HCPCS: 36415; 93005; 80053; 82550; 84484; 85025; 85610; 85730; 71045; 70496; 70450; 70498; 99291; 37195; 51702; 96365; J2997

== ENCOUNTER → 2024-04-10 | Outpatient (CLI) | payer MEDICARE, BC ==
[2024-04-10 15:19] LABS: ALT 23 U/L (10-49); AST 15 U/L (14-35); Blood Urea Nitrogen 14.4 mg/dL (9.0-27.0); Carbon Dioxide 21.7 mmol/L (21.6-31.8); Chloride 103 mmol/L (96-109); Chol/HDL Ratio 3.45 Ratio; Creatine Kinase 51 U/L (35-257); LDL Cholesterol,Calculated 59.1 mg/dL (0.0-131.0); Potassium 4.2 mmol/L (3.5-5.5); Sodium 139 mmol/L (135-145)
[2024-04-10 19:10] LABS: Basophils # (A) 0.09 X 10*3/uL (0.00-0.10); Basophils % (A) 0.7 %; Eosinophils % (A) 1.7 %; HCT 48.3 % (39.6-50.0); HGB 16.1 g/dL (13.0-17.0); Lymphocytes # (A) 2.31 X 10*3/uL (0.90-5.00); Lymphocytes % (A) 19.2 %; MCH 28.6 pg (27.0-32.0); MCHC 33.3 g/dL (32.0-37.0); MCV 85.8 FL (80.0-97.0); Mean Platelet Volume 10.3 FL (9.5-12.2); Monocytes # (A) 0.99 X 10*3/uL (0.20-1.00); Monocytes % (A) 8.2 %; NRBC Per 100 WBC 0 X 10*3/uL (0.00-0.01); Neutrophils # (A) 8.41 X 10*3/uL (1.80-7.70); Platelet Count 244 X 10*3/uL (140-440); RBC 5.63 X 10*6/uL (4.40-5.60); RDW 14.5 % (11.5-14.5); WBC 12.03 X 10*3/uL (4.50-10.00)
== END | disposition home or self-care (01) ==
LOC: LABWHC1 10:20
PROVIDERS: ATTEND Internal Medicine Cardiovascular Disease
DX: I25.10 Atherosclerotic heart disease of native coronary artery without angina pectoris (principal); E11.9 Type 2 diabetes mellitus without complications; E78.00 Pure hypercholesterolemia, unspecified
CPT/HCPCS: 36415; 80051; 80061; 82550; 82565; 84450; 84460; 84520; 85025

== ENCOUNTER 2024-04-21 14:39 | Emergency (ER) | payer MEDICARE, BC ==
--- NOTE | 2024-04-21 15:03 | ED ---
Back Pain HPI - General Source: patient, RN notes reviewed Mode of arrival: ambulatory Limitations: no limitations <Evelyn Santoyo - Last Filed: 04/21/24 15:03> <Jorge More - Last Filed: 04/21/24 20:36> - General Chief Complaint: Urogenital Stated Complaint: referal- abd pain, Time Seen by Provider: 04/21/24 15:02 - History of Present Illness Initial Comments: Quick Note: This is a 63-year-old male who presents to the emergency department for right flank pain and abdominal pain. He followed up with his primary care provider in the office today, who advised that there is blood in his urine and recommended he come to the emergency department for evaluation of possible kidney stones. (Evelyn Santoyo) - Related Data Home Medications Medication Instructions Recorded Confirmed Aspirin [Adult Low Dose Aspirin EC] 81 mg PO DAILY 06/17/20 06/17/20 Atorvastatin [Lipitor] 80 mg PO HS 06/17/20 06/17/20 Calcium Carbonate [Tums] 1 - 2 tab PO DAILY PRN 06/17/20 06/17/20 Clopidogrel [Plavix] 75 mg PO QAM 06/17/20 06/17/20 Metoprolol Succinate [Toprol XL] 100 mg PO HS 06/17/20 06/17/20 hydroCHLOROthiazide 25 mg PO QAM 06/17/20 06/17/20 ramipriL [Ramipril] 10 mg PO QAM 06/17/20 06/17/20 Previous Rx's Medication Instructions Recorded Ketorolac [Toradol] 10 mg PO Q6HR #15 tab 04/21/24 Tamsulosin [Flomax] 0.4 mg PO DAILY #10 cap 04/21/24 Allergies Allergy/AdvReac Type Severity Reaction Status Date / Time No Known Allergies Allergy Verified 04/21/24 14:49 Review of Systems ROS Other: All systems not noted in ROS Statement are negative. <Evelyn Santoyo - Last Filed: 04/21/24 15:03> ROS Other: All systems not noted in ROS Statement are negative. <Jorge More - Last Filed: 04/21/24 20:36> ROS Statement: Those systems with pertinent positive or pertinent negative responses have been documented in the HPI. Past Medical History Past Medical History: Coronary Artery Disease (CAD), Hyperlipidemia, Hypertension, Osteoarthritis (OA), Prostate Disorder Additional Past Medical History / Comment(s): RENAL CALCULI. HEMOROIDS. History of Any Multi-Drug Resistant Organisms: None Reported Past Surgical History: Coronary Bypass/CABG, Heart Catheterization With Stent Additional Past Surgical History / Comment(s): TURP 2011. LITHOTRIPSY. Past Anesthesia/Blood Transfusion Reactions: No Reported Reaction Date of Last Stent Placement:: 2018 Past Psychological History: No Psychological Hx Reported Smoking Status: Never smoker Past Alcohol Use History: Occasional Past Drug Use History: None Reported <Evelyn Santoyo - Last Filed: 04/21/24 15:03> General Exam Limitations: no limitations <Evelyn Santoyo - Last Filed: 04/21/24 15:03> - General Exam Comments Initial Comments: Visual Physical Exam Vital signs reviewed General: Well-appearing, nontoxic, no acute distress. Head: Normocephalic, atraumatic Eyes: PERRLA, EOMI ENT: Airway patent Chest: Nonlabored breathing Skin: No visual rash, normal skin tone Neuro: Alert and oriented 3 Musculoskeletal: No gross abnormalities (Evelyn Santoyo) Course Vital Signs 04/21/24 14:45 Temperature 98.9 F Pulse Rate 67 Respiratory 18 Rate Blood Pressure 142/89 O2 Sat by Pulse 97 Oximetry Medical Decision Making <Evelyn Santoyo - Last Filed: 04/21/24 15:03> - Lab Data Result diagrams: 04/21/24 15:52 04/21/24 15:52 <Jorge More - Last Filed: 04/21/24 20:36> - Medical Decision Making I performed the QuickNote portion of this chart. Signed Evelyn Santoyo PA-C. (Evelyn Santoyo) Was pt. sent in by a medical professional or institution (SHAWNA Conner, SQUEEZER OPERATOR, urgent care, hospital, or alf...) When possible be specific @ -No Did you speak to anyone other than the patient for history (EMS, parent, family, police, friend...)? What history was obtained from this source @ -No Did you review nursing and triage notes (agree or disagree)? Why? @ -I reviewed and agree with nursing and triage notes Were old charts reviewed (outside hosp., previous admission, EMS record, old EKG, old radiological studies, urgent care reports/EKG's, alf records)? Report findings @ -No old charts were reviewed Differential Diagnosis (chest pain, altered mental status, abdominal pain women, abdominal pain men, vaginal bleeding, weakness, fever, dyspnea, syncope, headache, dizziness, GI bleed, back pain, seizure, CVA, palpatations, mental health, musculoskeletal)? @ -Differential Abdominal Pain Men: Appendicitis, cholecystitis, diverticulosis, ischemic bowel, pancreatitis, hepatitis, UTI, gastroenteritis, AAA, incarcerated hernia, bowel obstruction, constipation, inflammatory bowel, hepatitis, peptic ulcer disease, splenic infarction, perforated viscus, testicular torsion, this is not meant to be an all-inclusive list EKG interpreted by me (3pts min.). @ -As above X-rays interpreted by me (1pt min.). @ -None done CT interpreted by me (1pt min.). @ -CT scan shows a 2 mm stone is nonobstructing in the left ureter patient has stones in both kidneys neither of which appear to be obstructing. U/S interpreted by me (1pt. min.). @ -None done What testing was considered but not performed or refused? (CT, X-rays, U/S, labs)? Why? @ -None What meds were considered but not given or refused? Why? @ -None Did you discuss the management of the patient with other professionals (professionals i.e. , PA, SQUEEZER OPERATOR, lab, RT, psych nurse, social group worker, tire rebuilder, teacher, president and chief commercial officer, egg caser)? Give summary @ -No Was smoking cessation discussed for >3mins.? @ -No Was critical care preformed (if so, how long)? @ -No Were there social determinants of health that impacted care today? How? (Homele ssness, low income, unemployed, alcoholism, drug addiction, transportation, low edu. Level, literacy, decrease access to med. care, long term, rehab)? @ -No Was there de-escalation of care discussed even if they declined (Discuss DNR or withdrawal of care, Hospice)? DNR status @ -No What co-morbidities impacted this encounter? (DM, HTN, Smoking, COPD, CAD, Cancer, CVA, ARF, Chemo, Hep., AIDS, mental health diagnosis, sleep apnea, morbid obesity)? @ -None Was patient admitted / discharged? Hospital course, mention meds given and route, prescriptions, significant lab abnormalities, going to OR and other pertinent info. @ -Back to the room to reevaluate the patient and patient was comfortable and no longer in pain he thanked me for the medication. Patient will follow-up with urology Undiagnosed new problem with uncertain prognosis? @ -No Drug Therapy requiring intensive monitoring for toxicity (Heparin, Nitro, Insulin, Cardizem)? @ -No Were any procedures done? @ -No Diagnosis/symptom? @ -Kidneys Acute, or Chronic, or Acute on Chronic? @ -Acute Uncomplicated (without systemic symptoms) or Complicated (systemic symptoms)? @ -Complicated Side effects of treatment? @ -No Exacerbation, Progression, or Severe Exacerbation? @ -No Poses a threat to life or bodily function? How? (Chest pain, USA, NC, pneumonia, PE, COPD, DKA, ARF, appy, cholecystitis, CVA, Diverticulitis, Homicidal, Suicidal, threat to staff... and all critical care pts) @ -No (Jorge More) - Lab Data Lab Results 04/21/24 04/21/24 04/21/24 Range/Units 15:52 15:52 15:52 WBC 14.1 H (3.8-10.6) k/uL RBC 5.29 (4.30-5.90) m/uL Hgb 15.2 (13.0-17.5) gm/dL Hct 45.5 (39.0-53.0) % MCV 86.0 (80.0-100.0) fL MCH 28.8 (25.0-35.0) pg MCHC 33.5 (31.0-37.0) g/dL RDW 14.7 (11.5-15.5) % Plt Count 231 (150-450) k/uL MPV 7.7 Neutrophils % 79 % Lymphocytes % 11 % Monocytes % 8 % Eosinophils % 1 % Basophils % 0 % Neutrophils # 11.2 H (1.3-7.7) k/uL Lymphocytes # 1.5 (1.0-4.8) k/uL Monocytes # 1.1 H (0-1.0) k/uL Eosinophils # 0.1 (0-0.7) k/uL Basophils # 0.0 (0-0.2) k/uL Sodium 136 L (137-145) mmol/L Potassium 4.1 (3.5-5.1) mmol/L Chloride 106 (98-107) mmol/L Carbon Dioxide 19 L (22-30) mmol/L Anion Gap 11 mmol/L BUN 17 (9-20) mg/dL Creatinine 0.76 (0.66-1.25) mg/dL Est GFR (CKD-EPI)AfAm >90 (>60 ml/min/1.73 sqM) Est GFR (CKD-EPI)NonAf >90 (>60 ml/min/1.73 sqM) Glucose 116 H (74-99) mg/dL Plasma Lactic Acid Vic 1.2 (0.7-2.0) mmol/L Calcium 9.6 (8.4-10.2) mg/dL Total Bilirubin 1.6 H (0.2-1.3) mg/dL AST 14 L (17-59) U/L ALT 19 (4-49) U/L Alkaline Phosphatase 105 (38-126) U/L Total Protein 7.1 (6.3-8.2) g/dL Albumin 4.2 (3.5-5.0) g/dL Urine Color Urine Appearance (Clear) Urine pH (5.0-8.0) Ur Specific Baxter (1.001-1.035) Urine Protein (Negative) Urine Glucose (UA) (Negative) Urine Ketones (Negative) Urine Blood (Negative) Urine Nitrite (Negative) Urine Bilirubin (Negative) Urine Urobilinogen (<2.0) mg/dL Ur Leukocyte Esterase (Negative) Urine RBC (0-5) /hpf Urine WBC (0-5) /hpf Ur Squamous Epith Cells (0-4) /hpf Calcium Oxalate Crystal (None) /hpf Hyaline Casts (0-2) /lpf Urine Mucus (None) /hpf 04/21/24 Range/Units 19:05 WBC (3.8-10.6) k/uL RBC (4.30-5.90) m/uL Hgb (13.0-17.5) gm/dL Hct (39.0-53.0) % MCV (80.0-100.0) fL MCH (25.0-35.0) pg MCHC (31.0-37.0) g/dL RDW (11.5-15.5) % Plt Count (150-450) k/uL MPV Neutrophils % % Lymphocytes % % Monocytes % % Eosinophils % % Basophils % % Neutrophils # (1.3-7.7) k/uL Lymphocytes # (1.0-4.8) k/uL Monocytes # (0-1.0) k/uL Eosinophils # (0-0.7) k/uL Basophils # (0-0.2) k/uL Sodium (137-145) mmol/L Potassium (3.5-5.1) mmol/L Chloride (98-107) mmol/L Carbon Dioxide (22-30) mmol/L Anion Gap mmol/L BUN (9-20) mg/dL Creatinine (0.66-1.25) mg/dL Est GFR (CKD-EPI)AfAm (>60 ml/min/1.73 sqM) Est GFR (CKD-EPI)NonAf (>60 ml/min/1.73 sqM) Glucose (74-99) mg/dL Plasma Lactic Acid Vic (0.7-2.0) mmol/L Calcium (8.4-10.2) mg/dL Total Bilirubin (0.2-1.3) mg/dL AST (17-59) U/L ALT (4-49) U/L Alkaline Phosphatase (38-126) U/L Total Protein (6.3-8.2) g/dL Albumin (3.5-5.0) g/dL Urine Color Yellow Urine Appearance Clear (Clear) Urine pH 5.5 (5.0-8.0) Ur Specific Baxter 1.028 (1.001-1.035) Urine Protein 1+ H (Negative) Urine Glucose (UA) Negative (Negative) Urine Ketones Negative (Negative) Urine Blood Small H (Negative) Urine Nitrite Negative (Negative) Urine Bilirubin Negative (Negative) Urine Urobilinogen <2.0 (<2.0) mg/dL Ur Leukocyte Esterase Moderate H (Negative) Urine RBC 13 H (0-5) /hpf Urine WBC 12 H (0-5) /hpf Ur Squamous Epith Cells 1 (0-4) /hpf Calcium Oxalate Crystal Few H (None) /hpf Hyaline Casts 1 (0-2) /lpf Urine Mucus Rare H (None) /hpf Disposition <Evelyn Santoyo - Last Filed: 04/21/24 15:03> Is patient prescribed a controlled substance at d/c from ED?: No Time of Disposition: 20:35 <Jorge More - Last Filed: 04/21/24 20:36> Clinical Impression: Kidney stone Disposition: HOME SELF-CARE Condition: Good Instructions (If sedation given, give patient instructions): Kidney Stones (ED) Prescriptions: Tamsulosin [Flomax] 0.4 mg PO DAILY #10 cap Ketorolac [Toradol] 10 mg PO Q6HR #15 tab Referrals: Rahul Ceballos MD [Primary Care Provider] - 1-2 days Vick Shah MD [STAFF PHYSICIAN] - 1-2 days
[2024-04-21 15:24] VITALS: RESP 18
[2024-04-21] MEDS: KETOROLAC 15 MG/ML 1 ML VIAL IVP STA (16:13)
[2024-04-21 16:14] LABS: Basophils % (A) 0 %; Eosinophils # (A) 0.1 k/uL (0-0.7); Eosinophils % (A) 1 %; HCT 45.5 % (39.0-53.0); HGB 15.2 gm/dL (13.0-17.5); Lymphocytes # (A) 1.5 k/uL (1.0-4.8); Lymphocytes % (A) 11 %; MCH 28.8 pg (25.0-35.0); MCHC 33.5 g/dL (31.0-37.0); Mean Platelet Volume 7.7; Monocytes # (A) 1.1 k/uL (0-1.0); Monocytes % (A) 8 %; Neutrophils # (A) 11.2 k/uL (1.3-7.7); Neutrophils % (A) 79 %; Platelet Count 231 k/uL (150-450); RBC 5.29 m/uL (4.30-5.90); RDW 14.7 % (11.5-15.5); WBC 14.1 k/uL (3.8-10.6)
[2024-04-21] MEDS: HYDROmorphone 0.5 MG/0.5 ML SYRINGE IVP STA (16:14)
[2024-04-21] MEDS: SODIUM CHLORIDE 0.9% 1,000 ML IV STA (16:16)
[2024-04-21 16:22] LABS: ALT 19 U/L (4-49); AST 14 U/L (17-59); African American GFR (CKD) >90 (>60 ml/min/1.73 sqM); Albumin 4.2 g/dL (3.5-5.0); Alkaline Phosphatase 105 U/L (38-126); Anion Gap 11 mmol/L; Blood Urea Nitrogen 17 mg/dL (9-20); Calcium 9.6 mg/dL (8.4-10.2); Carbon Dioxide 19 mmol/L (22-30); Chloride 106 mmol/L (98-107); Glucose 116 mg/dL (74-99); Non-African American GFR(CKD) >90 (>60 ml/min/1.73 sqM); Potassium 4.1 mmol/L (3.5-5.1); Sodium 136 mmol/L (137-145); Total Bilirubin 1.6 mg/dL (0.2-1.3); Total Protein 7.1 g/dL (6.3-8.2)
--- NOTE | 2024-04-21 16:37 | CT ---
EXAMINATION TYPE: CT abdomen pelvis wo con CT DLP: 661.7 mGycm, Automated exposure control for dose reduction was used. DATE OF EXAM: 04/21/2024 4:29 PM COMPARISON: CT abdomen pelvis most recent from 05/03/2022 CLINICAL INDICATION:Male, 63 years old with history of Right flank pain; RT side flank pain. TECHNIQUE: Axial CT abdomen pelvis wo con;Sagittal and coronal reformats were created on a separate workstation. Contrast used: mL of , (none if empty) Oral contrast used: without Oral Contrast (none if empty) FINDINGS: LOWER CHEST: Heart is mildly enlarged for size. severe atherosclerosis of the coronary arteries. ABDOMEN LIVER: Unremarkable GALLBLADDER AND BILE DUCTS: Gallbladder surgically absent. PANCREAS: Unremarkable. SPLEEN: Unremarkable. ADRENAL GLANDS: Unremarkable. KIDNEYS AND URETERS: No evidence for obstructive uropathy there is a distal left ureter calculus alexandra uring 2 mm series 201 image 141. Additional obstructing calculi measuring up to 6 mm. Nonobstructing right renal calculi measuring up to 4 mm PELVIS BLADDER: Layering stones versus wall calcifications series 201 image 143. Bilateral bladder diverticu la the right right diverticula has a calcification in the. REPRODUCTIVE: Coarse calcifications of the prostate gland are identified. ABDOMEN & PELVIS STOMACH AND BOWEL: No evidence of bowel obstruction. Scattered colonic diverticula. PERITONEUM/RETROPERITONEUM: No evidence of pneumoperitoneum or free fluid. VASCULATURE: No evidence of aortic aneurysm. MUSCULOSKELETAL: No acute osseous abnormalities LYMPH NODES: No gross evidence for lymphadenopathy. SOFT TISSUE/ABDOMINAL WALL: Unremarkable IMPRESSION: 1. Bilateral nonobstructing calculi. Additional left distal ureteral calculus is present which is in completely obstructing the distal ureter. No additional evidence for acute abdominal process. 2. Bladder stones layering posteriorly versus pleural calcifications. 3. Bladder diverticula with stone formation in the right diverticula. 4. Colonic diverticulosis.
[2024-04-21 19:44] LABS: Appearance,Urine Clear (Clear); Bilirubin,Urine Negative (Negative); Blood,Urine Small (Negative); Calcium Oxalate Crystals,Urine Few /hpf; Color,Urine Yellow; Glucose,Urine (UA) Negative (Negative); Hyaline Casts,Urine 1 /lpf (0-2); Ketones,Urine Negative (Negative); Leukocyte Esterase,Urine Moderate (Negative); Mucus,Urine Rare /hpf; Nitrite,Urine Negative (Negative); PH, Urine 5.5 (5.0-8.0); Protein,Urine 1+ (Negative); RBC,Urine 13 /hpf (0-5); Specific Gravity,Urine 1.028 (1.001-1.035); Squamous Epithelial Cell,Urine 1 /hpf (0-4); Urobilinogen,Urine <2.0 mg/dL (<2.0); WBC,Urine 12 /hpf (0-5)
[2024-04-21] MEDS: ACET/COD 300 MG/30 MG STARTER PACK 6 TAB BTL PO STA (20:54)
[2024-04-21 21:43] VITALS: BP 135/80; PULSE 70; TEMP 98.6
== END 2024-04-21 20:57 | disposition home or self-care (01) ==
LOC: EC 14:39
DX: N20.2 Calculus of kidney with calculus of ureter (principal)
CPT/HCPCS: 36415; 80053; 83605; 85025; 81001; 87086; 74176; 99284; 96374; 96375; 96361 ×4; J1885; J1170

== ENCOUNTER → 2025-05-26 | Outpatient (CLI) | payer MEDICARE ==
[2025-05-26 15:08] LABS: Basophils # (A) 0.06 X 10*3/uL (0.00-0.10); Basophils % (A) 0.6 %; Eosinophils # (A) 0.32 X 10*3/uL (0.04-0.35); Eosinophils % (A) 3.2 %; HCT 43.4 % (39.6-50.0); HGB 14.5 g/dL (13.0-17.0); Lymphocytes # (A) 1.54 X 10*3/uL (0.90-5.00); Lymphocytes % (A) 15.4 %; MCH 29.9 pg (27.0-32.0); MCHC 33.4 g/dL (32.0-37.0); MCV 89.5 FL (80.0-97.0); Mean Platelet Volume 10.3 FL (9.5-12.2); NRBC Per 100 WBC 0 X 10*3/uL (0.00-0.01); Neutrophils # (A) 7.31 X 10*3/uL (1.80-7.70); Neutrophils % (A) 73.4 %; Platelet Count 203 X 10*3/uL (140-440); RBC 4.85 X 10*6/uL (4.40-5.60); RDW 13.2 % (11.5-14.5); WBC 9.97 X 10*3/uL (4.50-10.00)
[2025-05-26 15:20] LABS: Appearance,Urine Clear (Clear); Bilirubin,Urine Negative (Negative); Blood,Urine Large (Negative); Color,Urine Yellow (Yellow); Ketones,Urine Negative (Negative); Nitrite,Urine Negative (Negative); Specific Gravity,Urine 1.019 (1.001-1.030)
[2025-05-26 15:23] LABS: BUN/Creat Ratio 9.36 Ratio (12.00-20.00); Blood Urea Nitrogen 10.3 mg/dL (9.0-27.0); Calcium 9.3 mg/dL (8.7-10.3); Carbon Dioxide 27.5 mmol/L (21.6-31.8); Chloride 101 mmol/L (96-109); Glucose 102 mg/dL (70-110); Potassium 4.1 mmol/L (3.5-5.5); Sodium 138 mmol/L (135-145)
[2025-05-26 15:26] LABS: Bacteria,Urine None Seen (None Seen)
== END | disposition home or self-care (01) ==
LOC: LABWHC1 11:17
PROVIDERS: ATTEND Urology
DX: Z01.812 Encounter for preprocedural laboratory examination (principal); N20.0 Calculus of kidney
CPT/HCPCS: 80048; 81001; 85025; 87086

== ENCOUNTER 2025-06-01 09:52 | Day surgery (SDC) | payer MEDICARE ==
--- NOTE | 2025-06-01 07:42 | P.HPIHPCON ---
History of Present Illness H&P Date: 06/01/25 Chief Complaint: Bilateral kidney stone This is a 64-year-old male with history of multiple bilateral renal stones, and a 2 mm left-sided ureteral stone, which he has passed. He is having symptomatic bilateral flank pain. I did discuss with him there is potential that his the stones could be contributing to his pain. Option of bilateral ureteroscopy with holmium laser was discussed with him. He is aware of the risk which include but not limited to bleeding, infection, injury to the ureter. Discussed potential persistent pain even with stone removal. Also has history of obstructive urinary symptoms, previously underwent laser ablation of the prostate at [facility]. Did discuss with him we will evaluate the bladder and the prostate at the time of the surgery Consent for Procedure: I have explained the operation/procedure to the patient, including the risks, benefits, side effects, alternative therapies (including not receiving the proposed treatment or service), the likelihood of the patient achieving his/her goals, and potential recuperation problems for the procedure/sedation/analgesia, as well as any blood products, if indicated. I also explained to the patient the risks, benefits and side effects of the alternatives, as well as the risks related to not receiving the proposed procedure, care, treatment, or services. Past Medical History Past Medical History: Coronary Artery Disease (CAD), Chest Pain / Angina, CVA/TIA, Diabetes Mellitus, GERD/Reflux, Hyperlipidemia, Hypertension, Myocardial Infarction (MO), Osteoarthritis (OA), Prostate Disorder Additional Past Medical History / Comment(s): hx RENAL CALCULI. HEMOROIDS. stroke 12/2023 loss of appetite. 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 loss of filter at times. diet controlled diabetes - decreased appetite. left leg swelling. incontinent wears depends Last Myocardial Infarction Date:: 2002,2016.2017.2020 History of Any Multi-Drug Resistant Organisms: C-DIFF Date of last positivie culture/infection: 12/2023 MDRO Source:: stool Past Surgical History: Cholecystectomy, Coronary Bypass/CABG, Heart Catheterization With Stent, Prostate Surgery Additional Past Surgical History / Comment(s): TURP x2. LITHOTRIPSY. 9 stents. colonoscopy, eye surgery as a child. Past Anesthesia/Blood Transfusion Reactions: No Reported Reaction Date of Last Stent Placement:: 2020 Smoking Status: Never smoker - Past Family History Father Additional Family Medical History / Comment(s): brain tumor, Mother Family Medical History: Coronary Artery Disease (CAD), Deep Vein Thrombosis (DVT) Additional Family Medical History / Comment(s): cabg Sister(s) Family Medical History: Coronary Artery Disease (CAD), Renal Disease Medications and Allergies Home Medications Medication Instructions Recorded Confirmed Type Aspirin [Adult Low Dose Aspirin EC] 81 mg PO DAILY 06/17/20 05/28/25 History Atorvastatin [Lipitor] 80 mg PO HS 06/17/20 05/28/25 History Calcium Carbonate [Tums] 1 - 2 tab PO DAILY PRN 06/17/20 05/28/25 History Clopidogrel [Plavix] 75 mg PO QAM 06/17/20 05/28/25 History ramipriL [Ramipril] 10 mg PO QAM 06/17/20 05/28/25 History Tamsulosin [Flomax] 0.4 mg PO DAILY #10 cap 04/21/24 05/28/25 Rx Acetaminophen [Tylenol] 325 mg PO DIRECTED PRN 05/28/25 05/28/25 History Baclofen 10 mg PO BID 05/28/25 05/28/25 History Docusate [Colace] 100 mg PO BID 05/28/25 05/28/25 History FLUoxetine HCL [Fluoxetine HCl] 40 mg PO DAILY 05/28/25 05/28/25 History Famotidine 20 mg PO DAILY 05/28/25 05/28/25 History Gabapentin 300 mg PO HS 05/28/25 05/28/25 History Isosorbide Mononitrate ER [Imdur] 30 mg PO DAILY 05/28/25 05/28/25 History Metoprolol Succinate (ER) [Toprol 12.5 mg PO DAILY 05/28/25 05/28/25 History Xl] Nitroglycerin 0.4 mg SL DIRECTED PRN 05/28/25 05/28/25 History droNABinol 5 mg PO DAILY 05/28/25 05/28/25 History traZODone HCL [Desyrel] 50 mg PO HS 05/28/25 05/28/25 History Allergies Allergy/AdvReac Type Severity Reaction Status Date / Time No Known Allergies Allergy Verified 05/28/25 11:08 Surgical - Exam - General no distress, moderate pain - ENT normal nares, normal mucosa - Respiratory normal expansion, normal respiratory effort - Abdomen Abdomen: soft, non tender - Psychiatric oriented to time, oriented to person, oriented to place Assessment and Plan Assessment: OR for bilateral ureteroscopy, holmium laser lithotripsy, stone basketing and stent insertion
[~2025-06-01 09:52] MED LIST changes: +HYDROmorphone 0.5 MG/0.5 ML SYRINGE IVP PRN; -LACTATED RINGERS 1,000 ML IV SCH; +LIDOCAINE 1% (10MG/ML) FOR IV START INTRADERMA PRN; +fentaNYL (PF) 50 MCG/ML 2 ML AMP IV PRN
--- NOTE | 2025-06-01 11:09 | XR ---
EXAMINATION TYPE: XR KUB DATE OF EXAM: 06/01/2025 10:07 AM COMPARISON: None. CLINICAL INDICATION: Male, 64 years old with history of N20.0 CALCULUS OF KIDNEY, TECHNIQUE: Single view of the abdomen. FINDINGS: Right renal calculi: None Visualized. Right ureteral calculi: None Visualized. Left renal calculi: Multiple calculi left kidney totaling approximately 7 in number measuring up to up to 5 mm. Left ureteral calculi: None Visualized. Pelvic calcifications: Multiple calculi right kidney measuring up to 6 mm. Bowel gas pattern is unremarkable. No free air. No mass effects. IMPRESSION: 1. Bilateral nephrolithiasis [facility], , 06/01/2025 11:06 AM
[2025-06-01 11:34] LABS: Glucose,Whole Blood 123 mg/dL (70-110)
[2025-06-01] MEDS: IV FLUID CONTINUATION 1,000 ML IV ONE (11:34)
[2025-06-01] MEDS: LACTATED RINGERS 1,000 ML IV SCH (11:36)
[2025-06-01] MEDS: ONDANSETRON 4 MG/2 ML VIAL IVP ONE (11:37)
[2025-06-01] MEDS: DEXAMETHASONE SOD PHOSPHATE 4 MG/ML 1 ML VIAL IV ONE (11:37)
[2025-06-01] MEDS ORDERED: GLYCOPYRROLATE 0.2 MG/ML 2 ML VIAL ONE (14:06)
[2025-06-01] MEDS ORDERED: SUCCINYLCHOLINE CHLORIDE 200 MG/10 ML VIAL IV ONE (14:06)
[2025-06-01] MEDS ORDERED: fentaNYL (PF) 50 MCG/ML 2 ML AMP ONE (14:06)
[2025-06-01] MEDS ORDERED: PROPOFOL 10 MG/ML 20 ML VIAL IV ONE (14:06)
[2025-06-01] MEDS ORDERED: LIDOCAINE 1% INJ 10MG/ML (20 ML MDV) ONE (14:06)
[2025-06-01] MEDS ORDERED: MIDAZOLAM 2 MG/2 ML VIAL ONE (14:06)
[2025-06-01 15:42] VITALS: TEMP 97
--- NOTE | 2025-06-01 15:42 | FL ---
EXAMINATION TYPE: FL guidance operating room Intraoperative/procedural fluoroscopic services were pro vided. CLINICAL INDICATION:Male, 64 years old with history of CYSTO LITHO; , [facility] FINDINGS: Fluoroscopic images demonstrating cystoscopy lithotripsy with bilateral ureteral placement. No radiog raphic evidence for complication. Total fluoroscopy time is 15 seconds. DAP: 0.20992 Gycm2 Please see the operative/procedural note for further details. [facility], , 06/01/2025 3:40 PM
[2025-06-01 15:47] LABS: Glucose,Whole Blood 128 mg/dL (70-110)
--- NOTE | 2025-06-01 16:10 | P.OP ---
Date of Procedure: 06/01/25 Preoperative Diagnosis: Bilateral renal stones Postoperative Diagnosis: Same Procedure(s) Performed: Cystoscopy, bilateral ureteroscopy, holmium laser lithotripsy, stone basketing, stent insertion Implants: 6 English by 26 cm stents in the bilateral ureter left on a string Anesthesia: LYNETTE Surgeon: Jerardo Faustin Estimated Blood Loss (ml): 5 Pathology: other (Bilateral renal stone) Condition: stable Disposition: PACU Indications for Procedure: This is a 64-year-old male with history of multiple bilateral renal stones, and a 2 mm left-sided ureteral stone, which he has passed. He is having symptomatic bilateral flank pain. I did discuss with him there is potential that his the stones could be contributing to his pain. Option of bilateral ureteroscopy with holmium laser was discussed with him. He is aware of the risk which include but not limited to bleeding, infection, injury to the ureter. Discussed potential persistent pain even with stone removal. Also has history of obstructive urinary symptoms, previously underwent laser ablation of the prostate at [facility]. Did discuss with him we will evaluate the bladder and the prostate at the time of the surgery Operative Findings: Multiple bilateral renal stones Description of Procedure: Patient brought the operating room, general anesthesia was induced. He was prepped and draped in sterile fashion placed in a dorsolithotomy position. Cystoscopy through the 21 English sheath was inserted per urethra, there was no evidence of urethral strictures, but prostate fossa was open consistent with a TUR defect. Cystoscopy was performed showed no abnormality within the bladder. There were multiple tiny bladder stones which were irrigated out. Next a sensor wire was advanced through the scope and up the left ureteral orifice, the wire was advanced under fluoroscopy into the kidney. Next an 1113 English access sheath was passed over the wire and into the proximal ureter. The flexible ureteroscope was inserted through the access sheath, renoscopy was performed showed multiple stones within the kidney. Using the holmium laser the stones were fragmented, stone fragments were removed using the stone basket. Repeat renoscopy showed no sizable fragments or injury to the kidney, on fluoroscopy there was no radiopaque density seen. Pullback ureteroscopy was performed showed no injury to the ureter or any ureteral stone, as ureteroscope was withdrawn a sensor wire was advanced through. Next a ureteral stent was passed over the wire, the proximal curl was visualized on fluoroscopy and the distal curl was visualized using cystoscope. The stent was left on a string. At this time attention was carried to the right side Next a sensor wire was advanced through the scope and up the left ureteral orifice, the wire was advanced under fluoroscopy into the kidney. Next an 1113 English access sheath was passed over the wire and into the proximal ureter. The flexible ureteroscope was inserted through the access sheath, renoscopy was performed showed multiple stones within the kidney. Using the holmium laser the stones were fragmented, stone fragments were removed using the stone basket. Repeat renoscopy showed no sizable fragments or injury to the kidney, on fluoroscopy there was no radiopaque density seen. Pullback ureteroscopy was performed showed no injury to the ureter or any ureteral stone, as ureteroscope was withdrawn a sensor wire was advanced through. Next a ureteral stent was passed over the wire, the proximal curl was visualized on fluoroscopy and the distal curl was visualized using cystoscope. The stent was left on a string. The bladder was emptied at the end of the case. Patient was awakened from anesthesia and taken to recovery
[2025-06-01 16:17] VITALS: RESP 16
[2025-06-01 16:33] VITALS: BP 168/95; PULSE 64
== END 2025-06-01 16:44 | disposition home or self-care (01) ==
LOC: OR 09:52
PROVIDERS: ATTEND Urology
DX: N20.0 Calculus of kidney (principal); E11.9 Type 2 diabetes mellitus without complications; E78.5 Hyperlipidemia, unspecified; I10 Essential (primary) hypertension; I25.10 Atherosclerotic heart disease of native coronary artery without angina pectoris; I25.2 Old myocardial infarction; M19.90 Unspecified osteoarthritis, unspecified site; Z79.02 Long term (current) use of antithrombotics/antiplatelets; Z86.73 Personal history of transient ischemic attack (TIA), and cerebral infarction without residual deficits; Z90.49 Acquired absence of other specified parts of digestive tract; Z95.1 Presence of aortocoronary bypass graft; Z79.899 Other long term (current) drug therapy
CPT/HCPCS: 52356; 82365; 74018; C2625; C1769; J2250; J0330; J1100; J0690; J2405; J2003; J3010; J2704; J1596

== ENCOUNTER 2025-06-08 06:21 | Inpatient (IN) | payer MEDICARE ==
--- NOTE | 2025-06-08 06:54 | ED ---
Nausea/Vomiting/Diarrhea HPI - General Chief complaint: Nausea/Vomiting/Diarrhea Stated complaint: post op vomiting Time Seen by Provider: 06/08/25 06:54 Source: patient, family, RN notes reviewed, old records reviewed Mode of arrival: wheelchair Limitations: no limitations - History of Present Illness Initial comments: 65-year-old male presented the ER for evaluation of weakness. is providing majority of HPI. reports on 06 01 25 patient underwent stent placement with Dr. Faustin kidney stones. Patient is scheduled to follow-up with him tomorrow. also reports a history of TURP procedure completed at [facility] in 2022. Starting last night patient began having the shakes and complaining of chills. Patient also complaining of generalized abdominal and body pain. admits to 1 episode of nausea and vomiting. She denies any mid emesis or coffee-ground emesis. reports patient has chronic constipation with a hi story of C. difficile and typically has to take laxative and stool softeners to have a bowel movement. Throughout the night patient continued to complain of chills and feeling unwell. She also reports patient was having pain with urination since procedure but starting last night patient has been unable to urinate only dribbling a small amount of urine. She also reports patient having difficulty ambulating with walker for normal which prompted emergency department visit. Patient has residual left-sided deficits from prior stroke and ambulates with walker. She denies any cough, congestion, sore throat, chest pain, shortness of breath or peripheral edema. - Related Data Home Medications Medication Instructions Recorded Confirmed Aspirin [Adult Low Dose Aspirin EC] 81 mg PO DAILY 06/17/20 06/08/25 Atorvastatin [Lipitor] 80 mg PO HS 06/17/20 06/08/25 Calcium Carbonate [Tums] 500 - 1,000 mg PO DAILY PRN 06/17/20 06/08/25 Clopidogrel [Plavix] 75 mg PO DAILY 06/17/20 06/08/25 Acetaminophen [Tylenol] 325 mg PO Q6H PRN 05/28/25 06/08/25 Baclofen 10 mg PO BID 05/28/25 06/08/25 Docusate [Colace] 100 mg PO BID 05/28/25 06/08/25 FLUoxetine HCL [Fluoxetine HCl] 40 mg PO DAILY 05/28/25 06/08/25 Famotidine 20 mg PO DAILY 05/28/25 06/08/25 Gabapentin 300 mg PO HS 05/28/25 06/08/25 Isosorbide Mononitrate ER [Imdur] 30 mg PO DAILY 05/28/25 06/08/25 Metoprolol Succinate (ER) [Toprol 12.5 mg PO DAILY 05/28/25 06/08/25 Xl] Nitroglycerin 0.4 mg SL Q5M PRN 05/28/25 06/08/25 droNABinol 5 mg PO DAILY 05/28/25 06/08/25 traZODone HCL [Desyrel] 50 mg PO HS 05/28/25 06/08/25 ramipriL 10 mg PO DAILY 06/08/25 06/08/25 Previous Rx's Medication Instructions Recorded Tamsulosin [Flomax] 0.4 mg PO DAILY #10 cap 04/21/24 traMADol HCl [Ultram] 50 mg PO Q6HR PRN 3 Days #12 tab 06/01/25 Allergies Allergy/AdvReac Type Severity Reaction Status Date / Time No Known Allergies Allergy Verified 06/08/25 10:53 Review of Systems ROS Statement: Those systems with pertinent positive or pertinent negative responses have been documented in the HPI. ROS Other: All systems not noted in ROS Statement are negative. Past Medical History Past Medical History: Coronary Artery Disease (CAD), Chest Pain / Angina, CVA/TIA, Diabetes Mellitus, GERD/Reflux, Hyperlipidemia, Hypertension, Myocardial Infarction (IL), Osteoarthritis (OA), Prostate Disorder Additional Past Medical History / Comment(s): hx RENAL CALCULI. HEMOROIDS. stroke 12/2023 loss of appetite. 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 loss of filter at times. diet controlled diabetes - decreased appetite. left leg swelling. incontinent wears depends Last Myocardial Infarction Date:: 2002,2016. History of Any Multi-Drug Resistant Organisms: C-DIFF Date of last positivie culture/infection: 12/2023 MDRO Source:: stool Past Surgical History: Cholecystectomy, Coronary Bypass/CABG, Heart Catheteriza tion With Stent, Prostate Surgery Additional Past Surgical History / Comment(s): TURP x2. LITHOTRIPSY. 9 stents. colonoscopy, eye surgery as a child. Past Anesthesia/Blood Transfusion Reactions: No Reported Reaction Date of Last Stent Placement:: 2020 Past Psychological History: Depression Smoking Status: Never smoker Past Alcohol Use History: None Reported Past Drug Use History: Marijuana - Past Family History Father Additional Family Medical History / Comment(s): brain tumor, Mother Family Medical History: Coronary Artery Disease (CAD), Deep Vein Thrombosis (DVT) Additional Family Medical History / Comment(s): cabg Sister(s) Family Medical History: Coronary Artery Disease (CAD), Renal Disease General Exam Limitations: no limitations General appearance: alert, in no apparent distress Respiratory exam: Present: normal lung sounds bilaterally. Absent: respiratory distress, wheezes, rales, rhonchi, stridor Cardiovascular Exam: Present: regular rate, normal rhythm, normal heart sounds. Absent: systolic murmur, diastolic murmur, rubs, gallop, clicks GI/Abdominal exam: Present: soft, normal bowel sounds. Absent: distended, te nderness, guarding, rebound, rigid Neurological exam: Present: alert, oriented X3, CN II-XII intact Skin exam: Present: warm, intact, normal color, diaphoretic. Absent: rash Course Vital Signs 06/08/25 06/08/25 06/08/25 06:25 06:54 07:28 Temperature 100 F H 102.7 F H 100.7 F H Pulse Rate 91 76 Respiratory 18 18 Rate Blood Pressure 179/93 157/68 O2 Sat by Pulse 95 99 Oximetry 06/08/25 06/08/25 06/08/25 08:51 10:34 10:46 Temperature 102.6 F H 104.6 F H 102.8 F H Pulse Rate 78 130 H 96 Respiratory 18 22 18 Rate Blood Pressure 148/82 191/153 145/65 O2 Sat by Pulse 99 98 99 Oximetry - Reevaluation(s) Reevaluation #1: 06/08/25 06:54 Patient met sepsis criteria with temperature and heart rate. Jerome body weight fluid bolus 2,310 based off 30 mL/kg 06/08/25 07:08 IV rocephin and blood cultures ordered. 06/08/25 08:29 UA concerning of infection 06/08/25 10:01 Case discussed with on-call urology, Dr. Smith. He is requesting medicine admission with urology on consult. He is agreeable with plan of care 06/08/25 10:23 [facility] Medical Decision Making - Medical Decision Making Was pt. sent in by a medical professional or institution ([facility] Conner, [facility], urgent care, hospital, or prison...) When possible be specific @ -No Did you speak to anyone other than the patient for history (EMS, parent, family, police, friend...)? What history was obtained from this source @ -Patient's provided majority of HPI and past medical history. Did you review nursing and triage notes (agree or disagree)? Why? @ -I reviewed and agree with nursing and triage notes Were old charts reviewed (outside hosp., previous admission, EMS record, old EKG, old radiological studies, urgent care reports/EKG's, prison records)? Report findings @ -No old charts were reviewed Differential Diagnosis (chest pain, altered mental status, abdominal pain women, abdominal pain men, vaginal bleeding, weakness, fever, dyspnea, syncope, headache, dizziness, GI bleed, back pain, seizure, CVA, palpatations, mental health, musculoskeletal)? @ -Differential Weakness:Hypoglycemia, shock, sepsis, hyponatremia, anemia, infection, IL, ETOH, adverse medicine reaction, overdose, stroke, this is not m eant to be an all-inclusive list. EKG interpreted by me (3pts min.). @ -As above X-rays interpreted by me (1pt min.). @ -CXR interpreted me negative for focal consolidation or pneumothorax pleural CT interpreted by me (1pt min.). @ -CT Abdo pelvis negative for acute intra-abdominal process. No evidence of obstructive uropathy with bilateral stents identified. No evidence of hematoma or abscess. Multiple bilateral nonobstructing renal calculi with additional few calculi in urinary bladder. U/S interpreted by me (1pt. min.). @ -None done What testing was considered but not performed or refused? (CT, X-rays, U/S, labs)? Why? @ -None What meds were considered but not given or refused? Why? @ -None Did you discuss the management of the patient with other professionals (professionals i.e. SHAWNA Conner, [facility], lab, RT, psych nurse, adoption social worker, framing mill operator, teacher, chief legal officer, case specialist)? Give summary @ -Case discussed with on-call urology, Dr. Smith, given recent surgical intervention on 06 01 25. He is agreeable with plan. He is requesting medicine admission. Case discussed with [facility], , who accepts admission. Was smoking cessation discussed for >3mins.? @ -No Was critical care preformed (if so, how long)? @ -No Were there social determinants of health that impacted care today? How? (Homelessness, low income, unemployed, alcoholism, drug addiction, transportatio n, low edu. Level, literacy, decrease access to med. care, assisted, rehab)? @ -No Was there de-escalation of care discussed even if they declined (Discuss DNR or withdrawal of care, Hospice)? DNR status @ -No What co-morbidities impacted this encounter? (DM, HTN, Smoking, COPD, CAD, Cancer, CVA, ARF, Chemo, Hep., AIDS, mental health diagnosis, sleep apnea, morbid obesity)? @ -CAD, history of CVA with left-sided deficits, diabetes mellitus, GERD, hypertension, hyperlipidemia, prostate disorder Was patient admitted / discharged? Hospital course, mention meds given and route , prescriptions, significant lab abnormalities, going to OR and other pertinent info. @ -Admitted. 65-year-old male presented the ER for evaluation of weakness. Upon arrival, patient febrile at 102.7F vitals otherwise stable. Patient is ill-appearing and shaking. Patient met sepsis criteria upon arrival, at 0654. Sepsis protocol was ordered. Laboratory studies remarkable for leukocytosis of 26.2 with a left shift. Lactic 2.4. Urinalysis concerning of infection with positive nitrites, greater than 182 RBC and WBCs this will be sent for culture, at 0829. Cephid negative. Chest x-ray negative. Given recent surgical urologic intervention, CT abdomen pelvis was obtained and negative for acute intra-abdominal process. No obstructive uropathy. Bilateral ureteral stents identified without hematoma or abscess. Patient received 2 L IV fluid bolus of LR and started on maintenance fluid at 130 cc/h. Blood cultures obtained prior to initiation of IV Rocephin, at 0708. Patient provided with p.o. ibuprofen and Tylenol. Case was discussed with on-call urology, Dr. Smith, he is agreeable for admission, IV antibiotics for further evaluation. He is requesting medicine admission. Case accepted by [facility], Dr. Hunt. Upon reevaluation, patient continued to have fever for which IV Ofirmev was ordered. Patient also received Dilaudid and Zofran for symptom control. and patient educated on today's findings, all questions answered. They are agreeable for admission. Patient admitted for further evaluation and treatment. ID and urology on consult. Case discussed with ED attending, Dr. Smith. Undiagnosed new problem with uncertain prognosis? @ -No Drug Therapy requiring intensive monitoring for toxicity (Heparin, Nitro, Insulin, Cardizem)? @ -No Were any procedures done? @ -No Diagnosis/symptom? @ -Sepsis/UTI Acute, or Chronic, or Acute on Chronic? @ -Acute Uncomplicated (without systemic symptoms) or Complicated (systemic symptoms)? @ -Complicated Side effects of treatment? @ -No Exacerbation, Progression, or Severe Exacerbation? @ -No Poses a threat to life or bodily function? How? (Chest pain, USA, IL, pneumonia, PE, COPD, DKA, ARF, appy, cholecystitis, CVA, Diverticulitis, Homicidal, Suicidal, threat to staff... and all critical care pts) @ -Yes, sepsis can lead to end organ dysfunction which can be life threatening - Lab Data Result diagrams: 06/08/25 06:55 06/08/25 06:55 Lab Results 06/08/25 06/08/25 06/08/25 Range/Units 06:55 06:55 06:55 WBC 26.28 H (4.50-10.00) 10*3/uL RBC 4.98 (4.40-5.60) 10*6/uL Hgb 15.3 (13.0-17.0) g/dL Hct 43.3 (39.6-50.0) % MCV 86.9 (80.0-97.0) fL MCH 30.7 (27.0-32.0) pg MCHC 35.3 (32.0-37.0) g/dL Plt Count 159 (140-440) 10*3/uL MPV 10.1 (9.5-12.2) fL Immature Gran % (Auto) 2.1 % Neutrophils % 89.5 % Lymphocytes % 2.1 % Monocytes % 5.9 % Eosinophils % 0.1 % Basophils % 0.3 % Immature Gran # 0.56 H (0.00-0.04) 10*3/uL Neutrophils # 23.52 H (1.80-7.70) 10*3/uL Lymphocytes # 0.54 L (0.90-5.00) 10*3/uL Monocytes # 1.55 H (0.20-1.00) 10*3/uL Eosinophils # 0.03 L (0.04-0.35) 10*3/uL Basophils # 0.08 (0.00-0.10) 10*3/uL Sodium 134 L (137-145) mmol/L Potassium 3.9 (3.5-5.1) mmol/L Chloride 100 (98-107) mmol/L Carbon Dioxide 22 (22-30) mmol/L Anion Gap 12 mmol/L BUN 15 (9-20) mg/dL Creatinine 1.01 (0.66-1.25) mg/dL Est GFR (CKD-EPI)AfAm 89 (>60 ml/min/1.73 sqM) Est GFR (CKD-EPI)NonAf 77 (>60 ml/min/1.73 sqM) Glucose 193 H (74-99) mg/dL Lactic Ac Sepsis Rflx Plasma Lactic Acid Vic 2.4 H* (0.7-2.0) mmol/L Calcium 9.3 (8.4-10.2) mg/dL Total Bilirubin 1.8 H (0.2-1.3) mg/dL AST 21 (17-59) U/L ALT 17 (4-49) U/L Alkaline Phosphatase 110 (38-126) U/L Total Protein 6.8 (6.3-8.2) g/dL Albumin 4.3 (3.5-5.0) g/dL Urine Color Urine Appearance (Clear) Urine pH (5.0-8.0) Ur Specific [place] (1.001-1.035) Urine Protein (Negative) Urine Glucose (UA) (Negative) Urine Ketones (Negative) Urine Blood (Negative) Urine Nitrite (Negative) Urine Bilirubin (Negative) Urine Urobilinogen (<2.0) mg/dL Ur Leukocyte Esterase (Negative) Urine RBC (0-5) /hpf Urine WBC (0-5) /hpf Urine WBC Clumps (None) /hpf Ur Squamous Epith Cells (0-4) /hpf Urine Bacteria (None) /hpf Urine Mucus (None) /hpf Influenza Type A (PCR) (Not Detectd) Influenza Type B (PCR) (Not Detectd) RSV (PCR) (Not Detectd) SARS-CoV-2 (PCR) (Not Detectd) 06/08/25 06/08/25 06/08/25 Range/Units 06:55 07:48 08:18 WBC (4.50-10.00) 10*3/uL RBC (4.40-5.60) 10*6/uL Hgb (13.0-17.0) g/dL Hct (39.6-50.0) % MCV (80.0-97.0) fL MCH (27.0-32.0) pg MCHC (32.0-37.0) g/dL Plt Count (140-440) 10*3/uL MPV (9.5-12.2) fL Immature Gran % (Auto) % Neutrophils % % Lymphocytes % % Monocytes % % Eosinophils % % Basophils % % Immature Gran # (0.00-0.04) 10*3/uL Neutrophils # (1.80-7.70) 10*3/uL Lymphocytes # (0.90-5.00) 10*3/uL Monocytes # (0.20-1.00) 10*3/uL Eosinophils # (0.04-0.35) 10*3/uL Basophils # (0.00-0.10) 10*3/uL Sodium (137-145) mmol/L Potassium (3.5-5.1) mmol/L Chloride (98-107) mmol/L Carbon Dioxide (22-30) mmol/L Anion Gap mmol/L BUN (9-20) mg/dL Creatinine (0.66-1.25) mg/dL Est GFR (CKD-EPI)AfAm (>60 ml/min/1.73 sqM) Est GFR (CKD-EPI)NonAf (>60 ml/min/1.73 sqM) Glucose (74-99) mg/dL Lactic Ac Sepsis Rflx Y Plasma Lactic Acid Vic (0.7-2.0) mmol/L Calcium (8.4-10.2) mg/dL Total Bilirubin (0.2-1.3) mg/dL AST (17-59) U/L ALT (4-49) U/L Alkaline Phosphatase (38-126) U/L Total Protein (6.3-8.2) g/dL Albumin (3.5-5.0) g/dL Urine Color Light Yellow Urine Appearance Cloudy (Clear) Urine pH 6.5 (5.0-8.0) Ur Specific [place] 1.011 (1.001-1.035) Urine Protein 1+ H (Negative) Urine Glucose (UA) 1+ H (Negative) Urine Ketones Negative (Negative) Urine Blood Large H (Negative) Urine Nitrite Positive (Negative) Urine Bilirubin Negative (Negative) Urine Urobilinogen <2.0 (<2.0) mg/dL Ur Leukocyte Esterase Large H (Negative) Urine RBC >182 H (0-5) /hpf Urine WBC >182 H (0-5) /hpf Urine WBC Clumps Moderate H (None) /hpf Ur Squamous Epith Cells 1 (0-4) /hpf Urine Bacteria Rare H (None) /hpf Urine Mucus Occasional H (None) /hpf Influenza Type A (PCR) Not Detected (Not Detectd) Influenza Type B (PCR) Not Detected (Not Detectd) RSV (PCR) Not Detected (Not Detectd) SARS-CoV-2 (PCR) Not Detected (Not Detectd) - EKG Data -: EKG Interpreted by Me EKG Comments: EKG at 6: 39 showing a sinus rhythm. Ventricular rate 83, AR interval 162, QRS duration 121, QT/QTc 369/409. - Radiology Data Radiology results: report reviewed, image reviewed Disposition Clinical Impression: Sepsis, UTI (urinary tract infection) Disposition: ADMITTED IP TO THIS HOSP Condition: Stable Time of Disposition: 10:02
[2025-06-08] MEDS: ACETAMINOPHEN TAB 500 MG TAB PO STA (07:01)
[2025-06-08] MEDS: LACTATED RINGERS 1,000 ML IV SCH ×2 (07:07→10:41)
[2025-06-08 07:17] LABS: Basophils # (A) 0.08 10*3/uL (0.00-0.10); Basophils % (A) 0.3 %; Eosinophils # (A) 0.03 10*3/uL (0.04-0.35); Eosinophils % (A) 0.1 %; HCT 43.3 % (39.6-50.0); HGB 15.3 g/dL (13.0-17.0); Lymphocytes # (A) 0.54 10*3/uL (0.90-5.00); Lymphocytes % (A) 2.1 %; MCH 30.7 pg (27.0-32.0); MCHC 35.3 g/dL (32.0-37.0); MCV 86.9 fL (80.0-97.0); Monocytes # (A) 1.55 10*3/uL (0.20-1.00); Monocytes % (A) 5.9 %; Neutrophils # (A) 23.52 10*3/uL (1.80-7.70); Neutrophils % (A) 89.5 %; Platelet Count 159 10*3/uL (140-440); RBC 4.98 10*6/uL (4.40-5.60); RDW 13.1 % (11.5-14.5); WBC 26.28 10*3/uL (4.50-10.00)
[2025-06-08 07:34] LABS: ALT 17 U/L (4-49); AST 21 U/L (17-59); African American GFR (CKD) 89 (>60 ml/min/1.73 sqM); Albumin 4.3 g/dL (3.5-5.0); Alkaline Phosphatase 110 U/L (38-126); Anion Gap 12 mmol/L; Blood Urea Nitrogen 15 mg/dL (9-20); Calcium 9.3 mg/dL (8.4-10.2); Carbon Dioxide 22 mmol/L (22-30); Chloride 100 mmol/L (98-107); Glucose 193 mg/dL (74-99); Non-African American GFR(CKD) 77 (>60 ml/min/1.73 sqM); Potassium 3.9 mmol/L (3.5-5.1); Sodium 134 mmol/L (137-145); Total Protein 6.8 g/dL (6.3-8.2)
[2025-06-08 08:48] LABS: Bacteria,Urine Rare /hpf; Bilirubin,Urine Negative (Negative); Blood,Urine Large (Negative); Color,Urine Light Yellow; Glucose,Urine (UA) 1+ (Negative); Ketones,Urine Negative (Negative); Leukocyte Esterase,Urine Large (Negative); Mucus,Urine Occasional /hpf; Nitrite,Urine Positive (Negative); PH, Urine 6.5 (5.0-8.0); Protein,Urine 1+ (Negative); RBC,Urine >182 /hpf (0-5); Specific Gravity,Urine 1.011 (1.001-1.035); Squamous Epithelial Cell,Urine 1 /hpf (0-4); Urobilinogen,Urine <2.0 mg/dL (<2.0); WBC,Urine >182 /hpf (0-5)
[2025-06-08] MEDS: IBUPROFEN 800 MG TAB PO STA (09:36)
--- NOTE | 2025-06-08 09:46 | CT ---
EXAMINATION TYPE: CT abdomen pelvis w con CT DLP: 1386.3 mGycm, Automated exposure control for dose reduction was used. DATE OF EXAM: 06/08/2025 9:31 AM COMPARISON: CT abdomen and pelvis 04/21/2024, KUB radiographs 06/01/2025 CLINICAL INDICATION:Male, 65 years old with history of fever/recent lithotripsy; pain and fever, post lithotripsy. TECHNIQUE: Standard CT of the abdomen and pelvis following the administration of 100 cc of Isovue 3 00 IV contrast material. Coronal and sagittal reformats were performed. FINDINGS: LOWER CHEST: Posterior dependent subsegmental atelectasis is noted. Cardiomegaly. Coronary artery yared cifications. Sternotomy wires. ABDOMEN LIVER: Unremarkable GALLBLADDER AND BILE DUCTS: The gallbladder is surgically absent. No biliary ductal dilatation. PANCREAS: Unremarkable. SPLEEN: Mildly enlarged measuring 14.6 cm in greatest dimension. ADRENAL GLANDS: Unremarkable. KIDNEYS AND URETERS: No hydronephrosis. Bilateral ureteral stents identified in appropriate position. The kidneys enhance symmetrically. Approximately 4 nonobstructing right renal calculi identified. A pproximately 3 nonobstructing left renal calculi with largest measuring up to 1 cm. No definitive ure teral calculus visualized. Mild bilateral perinephric fat stranding. No evidence for retroperitoneal hematoma. Contrast is demonstrated within both renal collecting systems extending into the proximal t o mid ureters. PELVIS BLADDER: Bilateral ureteral stents identified. Single focus of nondependent gas within the urinary bl adder likely from recent instrumentation. Couple of calculi are identified layering within the bladde r with largest measuring 5 mm. Tiny posterior right urinary bladder diverticulum. REPRODUCTIVE: Coarse calcifications of the prostate gland are identified. Prostatomegaly measuring 5. 0 cm in transverse dimension. Possible TURP defect. ABDOMEN & PELVIS STOMACH AND BOWEL: Small hiatal hernia, duodenum is unremarkable. Moderate colonic stool burden. No f ocal bowel wall thickening or surrounding inflammatory changes. No evidence of bowel obstruction. PERITONEUM/Retroperitoneum: No evidence of pneumoperitoneum. Trace fluid within the bilateral posteri or pararenal spaces. VASCULATURE: Moderate atherosclerotic calcifications are present throughout the abdominal aorta and i ts branches. No evidence of aortic aneurysm. MUSCULOSKELETAL: No acute osseous abnormalities. Degenerative changes of the pubic symphysis. LYMPH NODES: No evidence for lymphadenopathy. SOFT TISSUE/ABDOMINAL WALL: Unremarkable IMPRESSION: 1. No CT evidence for acute abdominal assess pelvic process. 2. No evidence for obstructive uropathy with bilateral ureteral stents identified. No evidence for he matoma or abscess. 3. Multiple bilateral nonobstructing renal calculi with additional few calculi within the urinary sj dder. [facility], , 06/08/2025 9:43 AM
--- NOTE | 2025-06-08 10:17 | XR ---
EXAMINATION TYPE: XR chest 2V DATE OF EXAM: 06/08/2025 10:12 AM COMPARISON: Chest radiographs from 12/14/2023 TECHNIQUE: XR chest 2V Frontal and lateral views of the chest. CLINICAL INDICATION:Male, 65 years old with history of fever; FINDINGS: Lungs/Pleura: There is no evidence of pleural effusion, focal consolidation, or pneumothorax. Pulmonary vascularity: Unremarkable. Heart/mediastinum: Cardiomediastinal silhouette is enlarged and stable. Atherosclerotic calcificatio ns are seen in the aorta. Musculoskeletal: No acute osseous pathology. Midline sternotomy wires are noted and stable. Other findings: Anterior left chest wall loop recorder. IMPRESSION: Chronic changes without acute pulmonary process. No significant change from prior. [facility], , 06/08/2025 10:15 AM
[2025-06-08] MEDS ORDERED: NALOXONE 0.4 MG/ML 1 ML VIAL IV PRN (10:21)
[2025-06-08] MEDS ORDERED: ACETAMINOPHEN TAB 325 MG TAB PO PRN (10:21)
[2025-06-08 10:36] LABS: RSV Not Detected (Not Detectd)
[2025-06-08] MEDS: ONDANSETRON 4 MG/2 ML VIAL IVP PRN (10:40)
[2025-06-08] MEDS: HYDROmorphone 0.5 MG/0.5 ML SYRINGE IVP STA (10:42)
[2025-06-08] MEDS: ACETAMINOPHEN IV (For NPO) 1,000 MG in EMPTY BAG 1 BAG IVPB SCH (11:00)
[2025-06-08] MEDS ORDERED: ACETAMINOPHEN IV (For NPO) 1,000 MG in EMPTY BAG 1 BAG IVPB SCH (12:00)
--- NOTE | 2025-06-08 12:18 | P.HPIM ---
History of Present Illness This is a pleasant 65 years old male with past medical history of multiple medical problems as below Information were obtained with the help of his . Patient presents because stent placed and kidney stone removed from both sides about a week ago with Dr. Vasquez, Last night he started developing nausea vomiting, he did not eat his dinner. 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 No overt fever at home. Denies chest pain or dyspnea. His dyspnea mainly on the right side and right flank He has been constipated since last Saturday which is usual for him He had fever on admission 102 point stable. Has leukocytosis 26.2 rest of BMP and LFT were unremarkable CT of the abdomen and but there is no obstructive uropathy and there is multi Review of Systems Review of systems CONSTITUTIONAL: No fever, no malaise, no fatigue. HEENT: No recent visual problems or hearing problems. Denied any sore throat. CARDIOVASCULAR: No orthopnea, PND, no palpitations, no syncope. PULMONARY: No shortness of breath, no cough, no hemoptysis. GASTROINTESTINAL: No diarrhea, no nausea, no vomiting, no abdominal pain. Normoactive bowel sounds. NEUROLOGICAL: No headaches, no weakness, no numbness. HEMATOLOGICAL: Denies any bleeding or petechiae. GENITOURINARY: Denies any burning micturition, frequency, or urgency. MUSCULOSKELETAL/RHEUMATOLOGICAL: Denies any joint pain, swelling, or any muscle pain. ENDOCRINE: Denies any polyuria or polydipsia. Past Medical History Past Medical History: Coronary Artery Disease (CAD), Chest Pain / Angina, CVA/TIA, Diabetes Mellitus, GERD/Reflux, Hyperlipidemia, Hypertension, Myocardial Infarction ([place]), Osteoarthritis (OA), Prostate Disorder Additional Past Medical History / Comment(s): hx RENAL CALCULI. HEMOROIDS. stroke 12/2023 loss of appetite. 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 loss of filter at times. diet controlled diabetes - decreased appetite. left leg swelling. incontinent wears depends Last Myocardial Infarction Date:: . History of Any Multi-Drug Resistant Organisms: C-DIFF Date of last positivie culture/infection: 12/2023 MDRO Source:: stool Past Surgical History: Cholecystectomy, Coronary Bypass/CABG, Heart Catheterization With Stent, Prostate Surgery Additional Past Surgical History / Comment(s): TURP x2. LITHOTRIPSY. 9 stents. colonoscopy, eye surgery as a child. Past Anesthesia/Blood Transfusion Reactions: No Reported Reaction Date of Last Stent Placement:: 2020 Past Psychological History: Depression Smoking Status: Never smoker Past Alcohol Use History: None Reported Past Drug Use History: Marijuana - Past Family History Father Additional Family Medical History / Comment(s): brain tumor, Mother Family Medical History: Coronary Artery Disease (CAD), Deep Vein Thrombosis (DVT) Additional Family Medical History / Comment(s): cabg Sister(s) Family Medical History: Coronary Artery Disease (CAD), Renal Disease Medications and Allergies Home Medications Medication Instructions Recorded Confirmed Type Aspirin [Adult Low Dose Aspirin EC] 81 mg PO DAILY 06/17/20 06/08/25 History Atorvastatin [Lipitor] 80 mg PO HS 06/17/20 06/08/25 History Calcium Carbonate [Tums] 500 - 1,000 mg PO DAILY PRN 06/17/20 06/08/25 History Clopidogrel [Plavix] 75 mg PO DAILY 06/17/20 06/08/25 History Tamsulosin [Flomax] 0.4 mg PO DAILY #10 cap 04/21/24 06/08/25 Rx Acetaminophen [Tylenol] 325 mg PO Q6H PRN 05/28/25 06/08/25 History Baclofen 10 mg PO BID 05/28/25 06/08/25 History Docusate [Colace] 100 mg PO BID 05/28/25 06/08/25 History FLUoxetine HCL [Fluoxetine HCl] 40 mg PO DAILY 05/28/25 06/08/25 History Famotidine 20 mg PO DAILY 05/28/25 06/08/25 History Gabapentin 300 mg PO HS 05/28/25 06/08/25 History Isosorbide Mononitrate ER [Imdur] 30 mg PO DAILY 05/28/25 06/08/25 History Metoprolol Succinate (ER) [Toprol 12.5 mg PO DAILY 05/28/25 06/08/25 History Xl] Nitroglycerin 0.4 mg SL Q5M PRN 05/28/25 06/08/25 History droNABinol 5 mg PO DAILY 05/28/25 06/08/25 History traZODone HCL [Desyrel] 50 mg PO HS 05/28/25 06/08/25 History traMADol HCl [Ultram] 50 mg PO Q6HR PRN 3 Days #12 tab 06/01/25 06/08/25 Rx ramipriL 10 mg PO DAILY 06/08/25 06/08/25 History Allergies Allergy/AdvReac Type Severity Reaction Status Date / Time No Known Allergies Allergy Verified 06/08/25 10:53 Physical Exam Vitals: Vital Signs Temp Pulse Resp BP Pulse Ox 06/08/25 10:46 102.8 F H 96 18 145/65 99 06/08/25 10:34 104.6 F H 130 H 22 191/153 98 06/08/25 08:51 102.6 F H 78 18 148/82 99 06/08/25 07:28 100.7 F H 76 18 157/68 99 06/08/25 06:54 102.7 F H 06/08/25 06:25 100 F H 91 18 179/93 95 Intake and Output 06/07/25 06/08/25 06/08/25 22:59 06:59 14:59 Other: Weight 77.111 kg -GENERAL: The patient is alert and oriented x3, not in any acute distress. Well developed, well nourished. Generally weak HEENT: Pupils are round and equally reacting to light. EOMI. No scleral icterus. No conjunctival pallor. Normocephalic, atraumatic. No pharyngeal erythema. No thyromegaly. CARDIOVASCULAR: S1 and S2 present. No murmurs, rubs, or gallops. PULMONARY: Chest is clear to auscultation, no wheezing , no crackles. -ABDOMEN: Soft, nontender, nondistended, normoactive bowel sounds. No palpable organomegaly. Right CVA tenderness MUSCULOSKELETAL: No joint swelling or deformity. EXTREMITIES: No cyanosis, clubbing, or pedal edema. -NEUROLOGICAL: Gross neurological examination did not reveal any focal deficits. Chronic left hemiplegia SKIN: No rashes. no petechiae. Results CBC & Chem 7: 06/08/25 06:55 06/08/25 06:55 Labs: Abnormal Lab Results - Last 24 Hours (Table) 06/08/25 06/08/25 06/08/25 Range/Units 06:55 06:55 06:55 WBC 26.28 H (4.50-10.00) 10*3/uL Immature Gran # 0.56 H (0.00-0.04) 10*3/uL Neutrophils # 23.52 H (1.80-7.70) 10*3/uL Lymphocytes # 0.54 L (0.90-5.00) 10*3/uL Monocytes # 1.55 H (0.20-1.00) 10*3/uL Eosinophils # 0.03 L (0.04-0.35) 10*3/uL Sodium 134 L (137-145) mmol/L Glucose 193 H (74-99) mg/dL Plasma Lactic Acid Vic 2.4 H* (0.7-2.0) mmol/L Total Bilirubin 1.8 H (0.2-1.3) mg/dL Urine Protein (Negative) Urine Glucose (UA) (Negative) Urine Blood (Negative) Ur Leukocyte Esterase (Negative) Urine RBC (0-5) /hpf Urine WBC (0-5) /hpf Urine WBC Clumps (None) /hpf Urine Bacteria (None) /hpf Urine Mucus (None) /hpf 06/08/25 06/08/25 Range/Units 08:18 10:47 WBC (4.50-10.00) 10*3/uL Immature Gran # (0.00-0.04) 10*3/uL Neutrophils # (1.80-7.70) 10*3/uL Lymphocytes # (0.90-5.00) 10*3/uL Monocytes # (0.20-1.00) 10*3/uL Eosinophils # (0.04-0.35) 10*3/uL Sodium (137-145) mmol/L Glucose (74-99) mg/dL Plasma Lactic Acid Vic 12.1 H* (0.7-2.0) mmol/L Total Bilirubin (0.2-1.3) mg/dL Urine Protein 1+ H (Negative) Urine Glucose (UA) 1+ H (Negative) Urine Blood Large H (Negative) Ur Leukocyte Esterase Large H (Negative) Urine RBC >182 H (0-5) /hpf Urine WBC >182 H (0-5) /hpf Urine WBC Clumps Moderate H (None) /hpf Urine Bacteria Rare H (None) /hpf Urine Mucus Occasional H (None) /hpf Assessment and Plan Assessment: Sepsis with leukocytosis and fever Possible urinary tract infection Patient had recent stone removal with stent placement 1 week earlier Coronary artery disease, status post CABG and stent History of stroke and left hemiparesis Diabetes mellitus Hypertension Hyperlipidemia History of osteoarthritis Gastroesophageal reflux disease Benign prostatic hypertrophy Plan: Continue with ceftriaxone 2 g Continue with IV fluid and give bolus Monitor lactic acid Factious disease team consult Neurology team consult Labs and medication were reviewed.. Continue same treatment. Continue with symptomatic treatment. Resume home medication. Monitor lytes and vitals. DVT and GI prophylaxis. Further recommendations depends on the clinical course of the patient DVT prophylaxis: Subcutaneous heparin GI Prophylaxis: Pepcid PT/OT: Pending Prognosis is guarded
[2025-06-08] MEDS: SODIUM CHLORIDE 0.9% 500 ML 500 ML IV ONE (12:38)
[2025-06-08] MEDS: CEFEPIME 2 GM in SODIUM CHLORIDE 0.9% 100 ML IVPB SCH (14:15)
--- NOTE | 2025-06-08 22:57 | P.CONS ---
History of Present Illness - Reason for Consult Consult date: 06/08/25 Sepsis Requesting physician: Adebayo E Sheet - Chief Complaint Rigors and chills weakness x 1 day - History of Present Illness Patient is a 65-year-old male with a past medical history significant for Coronary Artery Disease (CAD), Chest Pain / Angina, CVA/TIA, Diabetes Mellitus, GERD/Reflux, Hyperlipidemia, Hypertension, Myocardial Infarction ([place]), Osteoarthritis (OA), Prostate Disorder, currently was admitted in December 2023 at [facility] with CVA and also developed C. difficile colitis and apparently took almost 2 months to clear of his C. difficile infection as reported by the family patient recently on 06/01/2025 he did have a bilateral renal stent placement for multiple renal calculi patient did receive a dose of antibiotic perioperatively and was not discharged on any antibiotics patient now presenting to the hospital concerning for rigors and chills that started this morning and the patient also complaining of weakness apparently did have some low abdominal generalized pain along with bodyaches and episode of nausea and vomiting patient apparently has been dealing with hematuria off and on since his procedure on presentation to the hospital patient did have a temperature of 102.7 F patient was mildly tachycardic but not hypotensive or hypoxic no need for supplemental oxygen he did have elevated lactic acid white count of 26.28 creatinine has been normal urine has been positive influenza RSV COVID testing has been negative patient did have abdominal pelvis CT no CT evidence for acute abdominal process no evidence for obstructive uropathy with bilateral ureteral stent identified no evidence for hematoma or abscess patient was started on Rocephin infectious he was consulted for further management of antibiotic therapy Review of Systems Positive point and negatives has been mentioned in the HPI, complete review of systems was performed and all other systems are negative Past Medical History Past Medical History: Coronary Artery Disease (CAD), Chest Pain / Angina, CVA/TIA, Diabetes Mellitus, GERD/Reflux, Hyperlipidemia, Hypertension, Myocardial Infarction ([place]), Osteoarthritis (OA), Prostate Disorder Additional Past Medical History / Comment(s): hx RENAL CALCULI. HEMOROIDS. stroke 12/2023 loss of appetite. 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 loss of filter at times. diet controlled diabetes - decreased appetite. left leg swelling. incontinent wears depends Last Myocardial Infarction Date:: .2018.2021 History of Any Multi-Drug Resistant Organisms: C-DIFF Year Discovered:: 12/2023 MDRO Source:: stool Past Surgical History: Cholecystectomy, Coronary Bypass/CABG, Heart Catheterization With Stent, Prostate Surgery Additional Past Surgical History / Comment(s): TURP x2. LITHOTRIPSY. 9 stents. colonoscopy, eye surgery as a child. Past Anesthesia/Blood Transfusion Reactions: No Reported Reaction Date of Last Stent Placement:: 2020 Past Psychological History: Depression Smoking Status: Never smoker Past Alcohol Use History: None Reported Past Drug Use History: Marijuana - Past Family History Father Additional Family Medical History / Comment(s): brain tumor, Mother Family Medical History: Coronary Artery Disease (CAD), Deep Vein Thrombosis (DVT) Additional Family Medical History / Comment(s): cabg Sister(s) Family Medical History: Coronary Artery Disease (CAD), Renal Disease Medications and Allergies Home Medications Medication Instructions Recorded Confirmed Type Aspirin [Adult Low Dose Aspirin EC] 81 mg PO DAILY 06/17/20 06/08/25 History Atorvastatin [Lipitor] 80 mg PO HS 06/17/20 06/08/25 History Calcium Carbonate [Tums] 500 - 1,000 mg PO DAILY PRN 06/17/20 06/08/25 History Clopidogrel [Plavix] 75 mg PO DAILY 06/17/20 06/08/25 History Tamsulosin [Flomax] 0.4 mg PO DAILY #10 cap 04/21/24 06/08/25 Rx Acetaminophen [Tylenol] 325 mg PO Q6H PRN 05/28/25 06/08/25 History Baclofen 10 mg PO BID 05/28/25 06/08/25 History Docusate [Colace] 100 mg PO BID 05/28/25 06/08/25 History FLUoxetine HCL [Fluoxetine HCl] 40 mg PO DAILY 05/28/25 06/08/25 History Famotidine 20 mg PO DAILY 05/28/25 06/08/25 History Gabapentin 300 mg PO HS 05/28/25 06/08/25 History Isosorbide Mononitrate ER [Imdur] 30 mg PO DAILY 05/28/25 06/08/25 History Metoprolol Succinate (ER) [Toprol 12.5 mg PO DAILY 05/28/25 06/08/25 History Xl] Nitroglycerin 0.4 mg SL Q5M PRN 05/28/25 06/08/25 History droNABinol 5 mg PO DAILY 05/28/25 06/08/25 History traZODone HCL [Desyrel] 50 mg PO HS 05/28/25 06/08/25 History traMADol HCl [Ultram] 50 mg PO Q6HR PRN 3 Days #12 tab 06/01/25 06/08/25 Rx ramipriL 10 mg PO DAILY 06/08/25 06/08/25 History Allergies Allergy/AdvReac Type Severity Reaction Status Date / Time No Known Allergies Allergy Verified 06/08/25 10:53 Physical Exam Vitals: Vital Signs Temp Pulse Resp BP Pulse Ox 06/08/25 12:55 100.9 F H 85 18 104/65 98 06/08/25 10:46 102.8 F H 96 18 145/65 99 06/08/25 10:34 104.6 F H 130 H 22 191/153 98 06/08/25 08:51 102.6 F H 78 18 148/82 99 06/08/25 07:28 100.7 F H 76 18 157/68 99 06/08/25 06:54 102.7 F H 06/08/25 06:25 100 F H 91 18 179/93 95 Intake and Output 06/07/25 06/08/25 06/08/25 22:59 06:59 14:59 Other: Weight 77.111 kg GENERAL DESCRIPTION: Elderly male lying in bed, no distress. No tachypnea or accessory muscle of respiration use. HEENT: Shows Pallor , no scleral icterus. Oral mucous membrane is dry. No pharyn geal erythema or thrush NECK: Trachea central, no thyromegaly. LUNGS: Unlabored breathing. Clear to auscultation anteriorly. No wheeze or crackle. HEART: S1, S2, regular rate and rhythm. No loud murmur ABDOMEN: Soft, no tenderness , EXTREMITIES: No edema of feet. SKIN: No rash, no masses palpable. NEUROLOGICAL: The patient is awake, alert, mood and affect normal. Results CBC & Chem 7: 06/08/25 06:55 06/08/25 06:55 Labs: Abnormal Lab Results - Last 24 Hours (Table) 06/08/25 06/08/25 06/08/25 Range/Units 06:55 06:55 06:55 WBC 26.28 H (4.50-10.00) 10*3/uL Immature Gran # 0.56 H (0.00-0.04) 10*3/uL Neutrophils # 23.52 H (1.80-7.70) 10*3/uL Lymphocytes # 0.54 L (0.90-5.00) 10*3/uL Monocytes # 1.55 H (0.20-1.00) 10*3/uL Eosinophils # 0.03 L (0.04-0.35) 10*3/uL Sodium 134 L (137-145) mmol/L Glucose 193 H (74-99) mg/dL Plasma Lactic Acid Vic 2.4 H* (0.7-2.0) mmol/L Total Bilirubin 1.8 H (0.2-1.3) mg/dL Urine Protein (Negative) Urine Glucose (UA) (Negative) Urine Blood (Negative) Ur Leukocyte Esterase (Negative) Urine RBC (0-5) /hpf Urine WBC (0-5) /hpf Urine WBC Clumps (None) /hpf Urine Bacteria (None) /hpf Urine Mucus (None) /hpf 06/08/25 06/08/25 Range/Units 08:18 10:47 WBC (4.50-10.00) 10*3/uL Immature Gran # (0.00-0.04) 10*3/uL Neutrophils # (1.80-7.70) 10*3/uL Lymphocytes # (0.90-5.00) 10*3/uL Monocytes # (0.20-1.00) 10*3/uL Eosinophils # (0.04-0.35) 10*3/uL Sodium (137-145) mmol/L Glucose (74-99) mg/dL Plasma Lactic Acid Vic 12.1 H* (0.7-2.0) mmol/L Total Bilirubin (0.2-1.3) mg/dL Urine Protein 1+ H (Negative) Urine Glucose (UA) 1+ H (Negative) Urine Blood Large H (Negative) Ur Leukocyte Esterase Large H (Negative) Urine RBC >182 H (0-5) /hpf Urine WBC >182 H (0-5) /hpf Urine WBC Clumps Moderate H (None) /hpf Urine Bacteria Rare H (None) /hpf Urine Mucus Occasional H (None) /hpf Assessment and Plan (1) History of Clostridioides difficile colitis Current Visit: Yes Status: Acute Code(s): Z86.19 - PERSONAL HISTORY OF OTHER INFECTIOUS AND PARASITIC DISEASES SNOMED Code(s): 760418409 (2) Sepsis Current Visit: Yes Status: Acute Code(s): A41.9 - SEPSIS, UNSPECIFIED ORGANISM SNOMED Code(s): 20381942 (3) UTI (urinary tract infection) Current Visit: Yes Status: Acute Code(s): N39.0 - URINARY TRACT INFECTION, SITE NOT SPECIFIED SNOMED Code(s): 17563147 Plan: 1patient was in the hospital with sepsis in this patient due to fever tachycardia elevated white count meeting criteria for SIRS/Sepsis source likely urinary in this patient did have a history of bilateral renal stones requiring cystoscopy and bilateral ureteral stent placement on 06/01/2025 did have urinary symptoms of burning hematuria suprapubic pain as well as significantly positive UA will need to cover for the resistant gram-negative to the likely pathogen 2-patient also have a complicated history of C. difficile colitis requiring extensive vancomycin therapy in December 2023 and will be high risk of recurrent C. difficile colitis 3-discontinue Rocephin 4-we will start the patient on cefepime 2 g every 8 hours while waiting for the culture to finalize 5-will start the patient on probiotics family has been encouraged to give at least 1 yogurt with each meal 3 times a day Multiple questions Has Been Answered We will follow on clinical condition and cultures to further adjust medication if needed Thank you for this consultation we will follow the patient along with you Dictation was produced using [employer] dictation software. please excuse any grammatical, word or spelling errors.
[2025-06-09] MEDS: traMADol 50 MG TAB PO PRN (00:03)
[2025-06-09] MEDS: GABAPENTIN 300 MG CAP PO SCH (00:03)
--- NOTE | 2025-06-09 06:10 | P.GSCN ---
History of Present Illness Consult date: 06/08/25 Reason for Consult: Febrile UTI Requesting physician: Adebayo E Sheet History of present illness: The patient is a 65-year-old white male who underwent ureteroscopic removal of bilateral renal calculi in June 01, 2025. The calculi were composed predominantly of calcium oxalate. Last night, he experienced chills, genera lized aches, nausea, and vomiting. He presented to the ER this morning and was noted to be febrile. Urinalysis was consistent with a UTI. CT scan showed no evidence of hydronephrosis, with appropriate positioning of the ureteral stents. The patient states that he was straight catheterized to obtain a urine specimen. He was feeling much better when seen this evening. Review of Systems - Constitutional Reports chills, Reports fever, Reports weakness - Gastrointestinal Reports nausea, Reports vomiting - Genitourinary Reports kidney stones Past Medical History Past Medical History: Coronary Artery Disease (CAD), Chest Pain / Angina, CVA/TIA, Diabetes Mellitus, GERD/Reflux, Hyperlipidemia, Hypertension, Myocardial Infarction ([place]), Osteoarthritis (OA), Prostate Disorder Additional Past Medical History / Comment(s): hx RENAL CALCULI. HEMOROIDS. stroke 12/2023 loss of appetite. 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 loss of filter at times. diet controlled diabetes - decreased appetite. left leg swelling. incontinent wears depends Last Myocardial Infarction Date:: . History of Any Multi-Drug Resistant Organisms: C-DIFF Year Discovered:: 12/2023 MDRO Source:: stool Past Surgical History: Cholecystectomy, Coronary Bypass/CABG, Heart Catheter ization With Stent, Prostate Surgery Additional Past Surgical History / Comment(s): TURP x2. LITHOTRIPSY. 9 stents. colonoscopy, eye surgery as a child. Past Anesthesia/Blood Transfusion Reactions: No Reported Reaction Date of Last Stent Placement:: 2020 Past Psychological History: Depression Smoking Status: Never smoker Past Alcohol Use History: None Reported Past Drug Use History: Marijuana - Past Family History Father Additional Family Medical History / Comment(s): brain tumor, Mother Family Medical History: Coronary Artery Disease (CAD), Deep Vein Thrombosis (DVT) Additional Family Medical History / Comment(s): cabg Sister(s) Family Medical History: Coronary Artery Disease (CAD), Renal Disease Medications and Allergies Home Medications Medication Instructions Recorded Confirmed Type Aspirin [Adult Low Dose Aspirin EC] 81 mg PO DAILY 06/17/20 06/08/25 History Atorvastatin [Lipitor] 80 mg PO HS 06/17/20 06/08/25 History Calcium Carbonate [Tums] 500 - 1,000 mg PO DAILY PRN 06/17/20 06/08/25 History Clopidogrel [Plavix] 75 mg PO DAILY 06/17/20 06/08/25 History Tamsulosin [Flomax] 0.4 mg PO DAILY #10 cap 04/21/24 06/08/25 Rx Acetaminophen [Tylenol] 325 mg PO Q6H PRN 05/28/25 06/08/25 History Baclofen 10 mg PO BID 05/28/25 06/08/25 History Docusate [Colace] 100 mg PO BID 05/28/25 06/08/25 History FLUoxetine HCL [Fluoxetine HCl] 40 mg PO DAILY 05/28/25 06/08/25 History Famotidine 20 mg PO DAILY 05/28/25 06/08/25 History Gabapentin 300 mg PO HS 05/28/25 06/08/25 History Isosorbide Mononitrate ER [Imdur] 30 mg PO DAILY 05/28/25 06/08/25 History Metoprolol Succinate (ER) [Toprol 12.5 mg PO DAILY 05/28/25 06/08/25 History Xl] Nitroglycerin 0.4 mg SL Q5M PRN 05/28/25 06/08/25 History droNABinol 5 mg PO DAILY 05/28/25 06/08/25 History traZODone HCL [Desyrel] 50 mg PO HS 05/28/25 06/08/25 History traMADol HCl [Ultram] 50 mg PO Q6HR PRN 3 Days #12 tab 06/01/25 06/08/25 Rx ramipriL 10 mg PO DAILY 06/08/25 06/08/25 History Allergies Allergy/AdvReac Type Severity Reaction Status Date / Time No Known Allergies Allergy Verified 06/08/25 10:53 Surgical - Exam Vital Signs Temp Pulse Resp BP Pulse Ox 100 F H 91 18 179/93 95 06/08/25 06:25 06/08/25 06:25 06/08/25 06:25 06/08/25 06:25 06/08/25 06:25 - General well developed, well nourished, no distress - Respiratory normal respiratory effort - Abdomen Abdomen: soft, non tender, no guarding, no rigid, no rebound - Genitourinary Normal phallus, normal testes. The strings attached to the stent are securely taped to the penile shaft. One of the stents is partially out. - Psychiatric oriented to time, oriented to person, oriented to place, speech is normal, memory intact Results - Labs 06/08/25 06:55 06/08/25 06:55 Abnormal Lab Results - Last 24 Hours (Table) 06/08/25 06/08/25 06/08/25 Range/Units 06:55 06:55 06:55 WBC 26.28 H (4.50-10.00) 10*3/uL Immature Gran # 0.56 H (0.00-0.04) 10*3/uL Neutrophils # 23.52 H (1.80-7.70) 10*3/uL Lymphocytes # 0.54 L (0.90-5.00) 10*3/uL Monocytes # 1.55 H (0.20-1.00) 10*3/uL Eosinophils # 0.03 L (0.04-0.35) 10*3/uL Sodium 134 L (137-145) mmol/L Glucose 193 H (74-99) mg/dL Plasma Lactic Acid Vic 2.4 H* (0.7-2.0) mmol/L Total Bilirubin 1.8 H (0.2-1.3) mg/dL Urine Protein (Negative) Urine Glucose (UA) (Negative) Urine Blood (Negative) Ur Leukocyte Esterase (Negative) Urine RBC (0-5) /hpf Urine WBC (0-5) /hpf Urine WBC Clumps (None) /hpf Urine Bacteria (None) /hpf Urine Mucus (None) /hpf 06/08/25 06/08/25 06/08/25 Range/Units 08:18 10:47 14:17 WBC (4.50-10.00) 10*3/uL Immature Gran # (0.00-0.04) 10*3/uL Neutrophils # (1.80-7.70) 10*3/uL Lymphocytes # (0.90-5.00) 10*3/uL Monocytes # (0.20-1.00) 10*3/uL Eosinophils # (0.04-0.35) 10*3/uL Sodium (137-145) mmol/L Glucose (74-99) mg/dL Plasma Lactic Acid Vic 12.1 H* 3.7 H* (0.7-2.0) mmol/L Total Bilirubin (0.2-1.3) mg/dL Urine Protein 1+ H (Negative) Urine Glucose (UA) 1+ H (Negative) Urine Blood Large H (Negative) Ur Leukocyte Esterase Large H (Negative) Urine RBC >182 H (0-5) /hpf Urine WBC >182 H (0-5) /hpf Urine WBC Clumps Moderate H (None) /hpf Urine Bacteria Rare H (None) /hpf Urine Mucus Occasional H (None) /hpf Diabetes panel 06/08/25 Range/Units 06:55 Sodium 134 L (137-145) mmol/L Potassium 3.9 (3.5-5.1) mmol/L Chloride 100 (98-107) mmol/L Carbon Dioxide 22 (22-30) mmol/L BUN 15 (9-20) mg/dL Creatinine 1.01 (0.66-1.25) mg/dL Glucose 193 H (74-99) mg/dL Calcium 9.3 (8.4-10.2) mg/dL AST 21 (17-59) U/L ALT 17 (4-49) U/L Alkaline Phosphatase 110 (38-126) U/L Total Protein 6.8 (6.3-8.2) g/dL Albumin 4.3 (3.5-5.0) g/dL Calcium panel 06/08/25 Range/Units 06:55 Calcium 9.3 (8.4-10.2) mg/dL Albumin 4.3 (3.5-5.0) g/dL Pituitary panel 06/08/25 Range/Units 06:55 Sodium 134 L (137-145) mmol/L Potassium 3.9 (3.5-5.1) mmol/L Chloride 100 (98-107) mmol/L Carbon Dioxide 22 (22-30) mmol/L BUN 15 (9-20) mg/dL Creatinine 1.01 (0.66-1.25) mg/dL Glucose 193 H (74-99) mg/dL Calcium 9.3 (8.4-10.2) mg/dL Adrenal panel 06/08/25 Range/Units 06:55 Sodium 134 L (137-145) mmol/L Potassium 3.9 (3.5-5.1) mmol/L Chloride 100 (98-107) mmol/L Carbon Dioxide 22 (22-30) mmol/L BUN 15 (9-20) mg/dL Creatinine 1.01 (0.66-1.25) mg/dL Glucose 193 H (74-99) mg/dL Calcium 9.3 (8.4-10.2) mg/dL Total Bilirubin 1.8 H (0.2-1.3) mg/dL AST 21 (17-59) U/L ALT 17 (4-49) U/L Alkaline Phosphatase 110 (38-126) U/L Total Protein 6.8 (6.3-8.2) g/dL Albumin 4.3 (3.5-5.0) g/dL - Imaging CT scan - abdomen: report reviewed, image reviewed Assessment and Plan (1) UTI (urinary tract infection) Current Visit: Yes Status: Acute Code(s): N39.0 - URINARY TRACT INFECTION, SITE NOT SPECIFIED SNOMED Code(s): 78200660 (2) Calculus of kidney Current Visit: Yes Status: Acute Code(s): N20.0 - CALCULUS OF KIDNEY SNOMED Code(s): 80272551 Plan: I have reviewed the patient's CT scan. The ureteral stents were well- positioned, and there was no evidence of hydronephrosis or urinary retention. Therefore, no urologic intervention was felt to be necessary. Unfortunately, at the time of my evaluation one of the stents was partially out and therefore needed to be removed. Removal of that stent caused the other to come out, so both stents have been removed. I am hopeful that stent replacement will be unnecessary. Urine and blood cultures have been sent. I would suggest cefepime be continued pending the culture results. Time with Patient: Greater than 30
[2025-06-09 08:00] LABS: HCT 39.6 % (39.6-50.0); HGB 13.4 g/dL (13.0-17.0); MCH 30.5 pg (27.0-32.0); MCHC 33.8 g/dL (32.0-37.0); MCV 90.0 FL (80.0-97.0); NRBC Per 100 WBC 0 X 10*3/uL (0.00-0.01); Platelet Count 116 X 10*3/uL (140-440); RBC 4.40 X 10*6/uL (4.40-5.60); RDW 13.6 % (11.5-14.5); WBC 22.84 X 10*3/uL (4.50-10.00)
[2025-06-09 08:24] LABS: Anion Gap 10.90 mmol/L (4.00-12.00); BUN/Creat Ratio 14.38 Ratio (12.00-20.00); Blood Urea Nitrogen 18.7 mg/dL (9.0-27.0); Calcium 8.1 mg/dL (8.7-10.3); Carbon Dioxide 24.1 mmol/L (21.6-31.8); Chloride 101 mmol/L (96-109); Glucose 135 mg/dL (70-110); Potassium 3.9 mmol/L (3.5-5.5); Sodium 136 mmol/L (135-145)
[2025-06-09] MEDS: LACTOBACILLUS ACIDOPHILUS/PECT 1 EACH CAPSULE PO SCH (08:36)
[2025-06-09 10:18] LABS: Acanthocytes 2+ (None Seen); Basophils # (A) 0.18 X 10*3/uL (0.00-0.10); Basophils % (A) 0.8 %; Crenated RBC 2+ (None Seen); Eosinophils # (A) 0.04 X 10*3/uL (0.04-0.35); Eosinophils % (A) 0.2 %; Immature Grans, Automated 3.60 %; Lymphocytes # (A) 0.36 X 10*3/uL (0.90-5.00); Lymphocytes % (A) 1.6 %; Monocytes # (A) 0.77 X 10*3/uL (0.20-1.00); Monocytes % (A) 3.4 %; Neutrophils # (A) 20.67 X 10*3/uL (1.80-7.70); Neutrophils % (A) 90.4 %
--- NOTE | 2025-06-09 10:41 | P.PN ---
Subjective This is a pleasant 65 years old male with past medical history of multiple medical problems as below Information were obtained with the help of his . Patient presents because stent placed and kidney stone removed from both sides about a week ago with Dr. Vasquez, Last night he started developing nausea vomiting, he did not eat his dinner. 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 No overt fever at home. Denies chest pain or dyspnea. His dyspnea mainly on the right side and right flank He has been constipated since last Saturday which is usual for him He had fever on admission 102 point stable. Has leukocytosis 26.2 rest of BMP and LFT were unremarkable CT of the abdomen and but there is no obstructive uropathy and there is multi 06/09 Patient is very tired and weak Is seen in bed most of the time No other specific complaint, pain controlled Blood culture came back positive He remains on Ringer lactate 130 on cefepime antibiotic Urology team evaluated the patient, no hydronephrosis or retention requiring intervention however bilateral ureteral stents came back accidentally and they were removed. Will keep monitoring Review of systems PULMONARY: No shortness of breath, no cough, no hemoptysis. GASTROINTESTINAL: No diarrhea, no nausea, no vomiting, no abdominal pain. Normoactive bowel sounds. NEUROLOGICAL: No headaches, no weakness, no numbness. HEMATOLOGICAL: Denies any bleeding or petechiae. GENITOURINARY: Denies any burning micturition, frequency, or urgency. MUSCULOSKELETAL/RHEUMATOLOGICAL: Denies any joint pain, swelling, or any muscle pain. ENDOCRINE: Denies any polyuria or polydipsia. Active Medications Generic Name Dose Route Start Last Admin Trade Name Freq PRN Reason Stop Dose Admin Gabapentin 300 mg 06/08/25 23:33 06/09/25 00:03 Gabapentin 300 Mg Cap PO 300 mg HS ARIELA Administration Lactated Ringer's 1,000 mls @ 130 mls/hr 06/08/25 09:30 06/09/25 02:48 Lactated Ringers IV Not Given .[id number] ARIELA Acetaminophen 1,000 mg/ IV 100 mls @ 400 mls/hr 06/08/25 12:00 06/09/25 08:26 Solution IVPB 400 mls/hr Q6H ARIELA Administration Cefepime HCl 2 gm/ Sodium 100 mls @ 25 mls/hr 06/08/25 14:00 06/09/25 07:00 Chloride IVPB 25 mls/hr Q8H ARIELA Administration Protocol Lactobacillus Acidophilus 1 each 06/09/25 09:00 06/09/25 08:36 Lactobacillus Acidophilus/Pect 1 Each Capsule PO 1 each QID ARIELA Administration Naloxone HCl 0.2 mg 06/08/25 10:21 Naloxone 0.4 Mg/Ml 1 Ml Vial IV Q2M PRN Opioid Reversal Ondansetron HCl 4 mg 06/08/25 10:21 06/09/25 00:05 Ondansetron 4 Mg/2 Ml Vial IVP 4 mg Q8HR PRN Administration Nausea And Vomiting Tramadol HCl 50 mg 06/08/25 23:33 06/09/25 00:03 Tramadol 50 Mg Tab PO 50 mg QID PRN Administration Pain Trazodone HCl 50 mg 06/08/25 23:45 06/09/25 00:03 Trazodone Hcl 50 Mg Tab PO 50 mg HS ARIELA Administration Objective - Vital Signs Vital signs: Vital Signs Temp 97.6 F 06/09/25 08:00 Pulse 77 06/09/25 08:00 Resp 16 06/09/25 08:00 BP 134/71 06/09/25 08:00 Pulse Ox 98 06/09/25 08:00 FiO2 Intake & Output 06/08/25 06/09/25 06/09/25 18:59 06:59 18:59 Other: # Voids 1 - Exam -GENERAL: The patient is alert and oriented x3, not in any acute distress. Well developed, well nourished. Generally weak and lethargic HEENT: Pupils are round and equally reacting to light. EOMI. No scleral icterus. No conjunctival pallor. Normocephalic, atraumatic. No pharyngeal erythema. No thyromegaly. CARDIOVASCULAR: S1 and S2 present. No murmurs, rubs, or gallops. PULMONARY: Chest is clear to auscultation, no wheezing , no crackles. ABDOMEN: Soft, nontender, nondistended, normoactive bowel sounds. No palpable organomegaly. MUSCULOSKELETAL: No joint swelling or deformity. EXTREMITIES: No cyanosis, clubbing, or pedal edema. NEUROLOGICAL: Gross neurological examination did not reveal any focal deficits. SKIN: No rashes. no petechiae. - Labs CBC & Chem 7: 06/09/25 04:04 06/09/25 04:04 Labs: Abnormal Lab Results - Last 24 Hours (Table) 06/08/25 06/08/25 06/08/25 Range/Units 10:47 14:17 19:27 WBC (4.50-10.00) X 10*3/uL Plt Count (140-440) X 10*3/uL Immature Gran # (0.00-0.04) X 10*3/uL Neutrophils # (1.80-7.70) X 10*3/uL Lymphocytes # (0.90-5.00) X 10*3/uL Basophils # (0.00-0.10) X 10*3/uL Crenated Cell (None Seen) Elliptocytes (None Seen) Acanthocytes (Spur) (None Seen) Glucose (70-110) mg/dL Plasma Lactic Acid Vic 12.1 H* 3.7 H* 2.3 H* (0.7-2.0) mmol/L Calcium (8.7-10.3) mg/dL Procalcitonin (0.02-0.50) ng/mL 06/08/25 06/09/25 06/09/25 Range/Units 22:24 04:04 04:04 WBC 22.84 H (4.50-10.00) X 10*3/uL Plt Count 116 L (140-440) X 10*3/uL Immature Gran # 0.82 H (0.00-0.04) X 10*3/uL Neutrophils # 20.67 H (1.80-7.70) X 10*3/uL Lymphocytes # 0.36 L (0.90-5.00) X 10*3/uL Basophils # 0.18 H (0.00-0.10) X 10*3/uL Crenated Cell 2+ A (None Seen) Elliptocytes 2+ A (None Seen) Acanthocytes (Spur) 2+ A (None Seen) Glucose (70-110) mg/dL Plasma Lactic Acid Vic 3.9 H* (0.7-2.0) mmol/L Calcium (8.7-10.3) mg/dL Procalcitonin 18.60 H (0.02-0.50) ng/mL 06/09/25 Range/Units 04:04 WBC (4.50-10.00) X 10*3/uL Plt Count (140-440) X 10*3/uL Immature Gran # (0.00-0.04) X 10*3/uL Neutrophils # (1.80-7.70) X 10*3/uL Lymphocytes # (0.90-5.00) X 10*3/uL Basophils # (0.00-0.10) X 10*3/uL Crenated Cell (None Seen) Elliptocytes (None Seen) Acanthocytes (Spur) (None Seen) Glucose 135 H (70-110) mg/dL Plasma Lactic Acid Vic (0.7-2.0) mmol/L Calcium 8.1 L (8.7-10.3) mg/dL Procalcitonin (0.02-0.50) ng/mL Microbiology - Last 24 Hours (Table) 06/08/25 06:55 Blood Culture Gram Stain - Preliminary Blood Blood Culture - Preliminary Molecular ID Assessment and Plan Assessment: Sepsis with leukocytosis and fever urinary tract infection Patient had recent stone removal with stent placement 1 week earlier. Bilateral stents accidentally came out on 06/08 Coronary artery disease, status post CABG and stent History of stroke and left hemiparesis Diabetes mellitus Hypertension Hyperlipidemia History of osteoarthritis Gastroesophageal reflux disease Benign prostatic hypertrophy Plan: Continue with cefepime Continue with IV fluid Monitor lactic acid Factious disease team consult Urology team consult, no need for intervention for now Labs and medication were reviewed.. Continue same treatment. Continue with symptomatic treatment. Resume home medication. Monitor lytes and vitals. DVT and GI prophylaxis. Further recommendations depends on the clinical course of the patient DVT prophylaxis: Subcutaneous heparin GI Prophylaxis: Pepcid PT/OT: Pending Prognosis is guarded
--- NOTE | 2025-06-09 12:46 | XR ---
EXAMINATION TYPE: XR wrist complete LT DATE OF EXAM: 06/09/2025 12:37 PM INDICATION: Patient age:Male; 65 years old; Reason for study: Fall; PHH. pain COMPARISON: None TECHNIQUE: 4 views of the left wrist. Frontal, navicular, lateral, and oblique. FINDINGS: Diffuse bone demineralization which limits evaluation. No acute osseous pathology, joint di slocation, or joint effusion. No evidence of any soft tissue swelling is seen. IMPRESSION: No acute osseous pathology. [facility], , 06/09/2025 12:44 PM
--- NOTE | 2025-06-09 12:49 | XR ---
EXAMINATION TYPE: XR shoulder complete LT DATE OF EXAM: 06/09/2025 12:37 PM INDICATION: Patient age:Male; 65 years old; Reason for study: Fall; pain COMPARISON: Chest radiograph 06/08/2025 TECHNIQUE: The left shoulder was examined in AP, internally rotated and scapular Y projections. . FINDINGS: Diffuse bone demineralization. Acute nondisplaced fracture involving the proximal humerus surgical ne ck. No dislocation. Loop recorder identified. The remaining portions of the visualized chest are unre markable. IMPRESSION: Acute nondisplaced fracture involving the proximal left humerus surgical neck. [facility], , 06/09/2025 12:47 PM
--- NOTE | 2025-06-09 12:52 | XR ---
EXAMINATION TYPE: XR Hip Complete LT DATE OF EXAM: 06/09/2025 12:37 PM INDICATION: Patient age:Male; 65 years old; Reason for study: Fall; PHH. pain COMPARISON: CT abdomen and pelvis 06/08/2025 TECHNIQUE: The left hip was examined in the frontal and lateral projections . FINDINGS: Diffuse bone demineralization. Acute mildly displaced left proximal femur subcapital neck f racture. No dislocation. No surrounding soft tissue swelling. IMPRESSION: Acute mildly displaced left proximal femur subcapital neck fracture. [facility], , 06/09/2025 12:50 PM
--- NOTE | 2025-06-09 14:30 | CT ---
EXAMINATION TYPE: CT brain wo con DATE OF EXAM: 06/09/2025 COMPARISON: 12/14/2023 CLINICAL INDICATION: Male, 65 years old with history of fall and head trauma; PHH, fell today/hit lef t side of his body CT DLP: 1100 mGycm Automated exposure control for dose reduction was used. Findings: The ventricles, basal cisterns and sulci over convexities are moderately to markedly enlarged consist ent with moderate to marked generalized atrophy. There is a large area of encephalomalacia involving the right temporal lobe and right basal ganglia w ith ex vacuo dilatation of the anterior right lateral ventricle consistent with a large remote infarc t. There is no mass effect or shift of midline structures. There is no acute intra or extra-axial hemorrhage. The posterior fossa and the brainstem, fourth ventricle and cerebellopontine angles appear normal. Intraorbital contents are normal and symmetric. Visualized paranasal sinuses and mastoid air cells are well aerated. The calvarium is intact. IMPRESSION: 1. No acute bleed or mass effect. 2. Large remote right temporal lobe and right basal ganglia infarct. 3. Moderate to marked generalized atrophy [facility], Workstation: [id number], 06/09/2025 2:28 PM
--- NOTE | 2025-06-09 14:51 | CT ---
EXAMINATION TYPE: CT hip LT wo con DATE OF EXAM: 06/09/2025 COMPARISON: None CLINICAL INDICATION: Male, 65 years old with history of acute fracture s/p fall in ER; PHH, fell toda y/hit left side of his body CT DLP: 482.2 mGycm Automated exposure control for dose reduction was used. FINDINGS: There is diffuse osteopenia. There is a mildly displaced and comminuted subcapital fracture of the left hip. The left hemipelvis i s intact. IMPRESSION: Mildly displacing comminuted subcapital fracture of the left hip. [facility], Workstation: [email or web address], 06/09/2025 2:48 PM
--- NOTE | 2025-06-09 15:25 | CT ---
EXAMINATION TYPE: CT shoulder LT wo con DATE OF EXAM: 06/09/2025 COMPARISON: None CLINICAL INDICATION: Male, 65 years old with history of acute fracture s/p fall in ER; PHH, fell toda y/hit left side of his body CT DLP: 560.8 mGycm Automated exposure control for dose reduction was used. FINDINGS: There is an acute mildly displaced fracture through the surgical neck of the left humerus. There is mild degeneration of the AC joint with mild capsular thickening. There are no focal osseous abnormalities. IMPRESSION: MILDLY DISPLACED FRACTURE THROUGH THE SURGICAL NECK OF THE LEFT HUMERUS. THERE IS NO SHOULDER DISLOCA TION. THERE IS MILD DEGENERATION OF THE AC JOINT [facility], Workstation: [id number], 06/09/2025 3:23 PM
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
--- NOTE | 2025-06-09 15:53 | P.PN ---
Subjective Progress Note Date: 06/09/25 Principal diagnosis: UTI, renal calculi The patient underwent ureteroscopic removal of bilateral renal calculi 1 week ago. He was admitted yesterday with a UTI. His ureteral stents were removed. He reported nonspecific abdominal pain this morning. Unfortunately, since that time he has fallen and sustained fractures of his left femoral neck and left proximal humerus. Objective - Vital Signs Vital signs: Vital Signs Temp 97.6 F 06/09/25 08:00 Pulse 77 06/09/25 08:00 Resp 16 06/09/25 08:00 BP 134/71 06/09/25 08:00 Pulse Ox 98 06/09/25 08:00 FiO2 Intake & Output 06/08/25 06/09/25 06/09/25 18:59 06:59 18:59 Other: # Voids 1 - Constitutional General appearance: Present: average body habitus, cooperative, mild distress - Gastrointestinal Gastrointestinal Comment(s): Soft, mild diffuse tenderness, no mass, no distention - Psychiatric Psychiatric: Present: A&O x's 3 - Labs CBC & Chem 7: 06/09/25 04:04 06/09/25 04:04 Labs: Abnormal Lab Results - Last 24 Hours (Table) 06/08/25 06/08/25 06/09/25 Range/Units 19:27 22:24 04:04 WBC (4.50-10.00) X 10*3/uL Plt Count (140-440) X 10*3/uL Immature Gran # (0.00-0.04) X 10*3/uL Neutrophils # (1.80-7.70) X 10*3/uL Lymphocytes # (0.90-5.00) X 10*3/uL Basophils # (0.00-0.10) X 10*3/uL Crenated Cell (None Seen) Elliptocytes (None Seen) Acanthocytes (Spur) (None Seen) Glucose (70-110) mg/dL Plasma Lactic Acid Vic 2.3 H* 3.9 H* (0.7-2.0) mmol/L Calcium (8.7-10.3) mg/dL Procalcitonin 18.60 H (0.02-0.50) ng/mL 06/09/25 06/09/25 Range/Units 04:04 04:04 WBC 22.84 H (4.50-10.00) X 10*3/uL Plt Count 116 L (140-440) X 10*3/uL Immature Gran # 0.82 H (0.00-0.04) X 10*3/uL Neutrophils # 20.67 H (1.80-7.70) X 10*3/uL Lymphocytes # 0.36 L (0.90-5.00) X 10*3/uL Basophils # 0.18 H (0.00-0.10) X 10*3/uL Crenated Cell 2+ A (None Seen) Elliptocytes 2+ A (None Seen) Acanthocytes (Spur) 2+ A (None Seen) Glucose 135 H (70-110) mg/dL Plasma Lactic Acid Vic (0.7-2.0) mmol/L Calcium 8.1 L (8.7-10.3) mg/dL Procalcitonin (0.02-0.50) ng/mL Microbiology - Last 24 Hours (Table) 06/08/25 08:18 Urine Culture - Preliminary Urine,Voided Gram Neg Bacilli 06/08/25 06:55 Blood Culture Gram Stain - Preliminary Blood Blood Culture - Preliminary Molecular ID Assessment and Plan (1) UTI (urinary tract infection) Current Visit: Yes Status: Acute Code(s): N39.0 - URINARY TRACT INFECTION, SITE NOT SPECIFIED SNOMED Code(s): 81848678 (2) Calculus of kidney Current Visit: Yes Status: Acute Code(s): N20.0 - CALCULUS OF KIDNEY SNOMED Code(s): 87880065 Plan: Urine and blood cultures show gram-negative bacilli, and molecular ID of the blood culture shows Pseudomonas aeruginosa. He is receiving cefepime. He will unfortunately require orthopedic surgery later this week.
--- NOTE | 2025-06-09 17:22 | P.PN ---
Subjective Progress Note Date: 06/09/25 Follow-up for sepsis/UTI Patient is a 65-year-old male with a past medical history significant for Coronary Artery Disease (CAD), Chest Pain / Angina, CVA/TIA, Diabetes Mellitus, GERD/Reflux, Hyperlipidemia, Hypertension, Myocardial Infarction ([place]), Osteoarthritis (OA), Prostate Disorder, currently was admitted in December 2023 at [facility] with CVA and also developed C. difficile colitis and apparently took almost 2 months to clear of his C. difficile infection as reported by the family patient recently on 06/01/2025 he did have a bilateral renal stent placement for multiple renal calculi patient did receive a dose of antibiotic perioperatively and was not discharged on any antibiotics patient now presenting to the hospital concerning for rigors and chills that started this morning and the patient also complaining of weakness apparently did have some low abdominal generalized pain along with bodyaches and episode of nausea and vomiting patient apparently has been dealing with hematuria off and on since his procedure on presentation to the hospital patient did have a temperature of 102.7 F patient was mildly tachycardic but not hypotensive or hypoxic no need for supplemental oxygen he did have elevated lactic acid white count of 26.28 creatinine has been normal urine has been positive influenza RSV COVID testing has been negative patient did have abdominal pelvis CT no CT evidence for acute abdominal process no evidence for obstructive uropathy with bilateral ureteral stent identified no evidence for hematoma or abscess patient was started on Rocephin infectious he was consulted for further management of antibiotic therapy Today 06/09/2025 patient is states he has no shortness of breath, nausea, vomiting, abdominal pain or dysuria. Due to partial removal, ureteral stents removed by urology. Afebrile and breathing comfortably on room air. Patient white count is 22.8, creatinine 1.3, blood culture negative bacilli Pseudomonas. Objective - Vital Signs Vital signs: Vital Signs Temp 97.6 F 06/09/25 08:00 Pulse 77 06/09/25 08:00 Resp 16 06/09/25 08:00 BP 134/71 06/09/25 08:00 Pulse Ox 98 06/09/25 08:00 FiO2 Intake & Output 06/08/25 06/09/25 06/09/25 18:59 06:59 18:59 Other: # Voids 1 - Exam GENERAL DESCRIPTION: Elderly male lying in bed, no distress. No tachypnea or accessory muscle of respiration use. LUNGS: Unlabored breathing. Clear to auscultation anteriorly. No wheeze or crackle. HEART: S1, S2, regular rate and rhythm. No loud murmur ABDOMEN: Soft, no tenderness NEUROLOGICAL: The patient is awake, alert, mood and affect normal. - Labs CBC & Chem 7: 06/10/25 04:27 06/09/25 04:04 Labs: Abnormal Lab Results - Last 24 Hours (Table) 06/08/25 06/08/25 06/08/25 Range/Units 10:47 14:17 19:27 WBC (4.50-10.00) X 10*3/uL Plt Count (140-440) X 10*3/uL Glucose (70-110) mg/dL Plasma Lactic Acid Vic 12.1 H* 3.7 H* 2.3 H* (0.7-2.0) mmol/L Calcium (8.7-10.3) mg/dL Procalcitonin (0.02-0.50) ng/mL 06/08/25 06/09/25 06/09/25 Range/Units 22:24 04:04 04:04 WBC 22.84 H (4.50-10.00) X 10*3/uL Plt Count 116 L (140-440) X 10*3/uL Glucose (70-110) mg/dL Plasma Lactic Acid Vic 3.9 H* (0.7-2.0) mmol/L Calcium (8.7-10.3) mg/dL Procalcitonin 18.60 H (0.02-0.50) ng/mL 06/09/25 Range/Units 04:04 WBC (4.50-10.00) X 10*3/uL Plt Count (140-440) X 10*3/uL Glucose 135 H (70-110) mg/dL Plasma Lactic Acid Vic (0.7-2.0) mmol/L Calcium 8.1 L (8.7-10.3) mg/dL Procalcitonin (0.02-0.50) ng/mL Microbiology - Last 24 Hours (Table) 06/08/25 06:55 Blood Culture Gram Stain - Preliminary Blood Blood Culture - Preliminary Molecular ID Assessment and Plan (1) History of Clostridioides difficile colitis Current Visit: Yes Status: Acute Code(s): Z86.19 - PERSONAL HISTORY OF OTHER INFECTIOUS AND PARASITIC DISEASES SNOMED Code(s): 438533726 (2) Sepsis Current Visit: Yes Status: Acute Code(s): A41.9 - SEPSIS, UNSPECIFIED ORGANISM SNOMED Code(s): 83035542 (3) UTI (urinary tract infection) Current Visit: Yes Status: Acute Code(s): N39.0 - URINARY TRACT INFECTION, SITE NOT SPECIFIED SNOMED Code(s): 31624436 Plan: 1patient was in the hospital with sepsis in this patient due to fever tachycardia elevated white count meeting criteria for SIRS/Sepsis source likely urinary in this patient did have a history of bilateral renal stones requiring cystoscopy and bilateral ureteral stent placement on 06/01/2025 did have urinary symptoms of burning hematuria suprapubic pain as well as significantly positive UA will need to cover for the resistant gram-negative to the likely pathogen 2-patient also have a complicated history of C. difficile colitis requiring extensive vancomycin therapy in December 2023 and will be high risk of recurrent C. difficile colitis 3-discontinue Rocephin 4-we will start the patient on cefepime 2 g every 8 hours. Preliminary blood culture finding of Pseudomonas. Waiting for the culture to finalize. Zosyn not indicated at this time. 5-will start the patient on probiotics family has been encouraged to give at least 1 yogurt with each meal 3 times a day Multiple questions Has Been Answered Quoc Jaffe MD Internal Medicine Resident, PGY2 Infectious disease service Patient was personally seen and examined care discussed in detail with the resident physician documentation reviewed and agree, patient did have a resol ution of his fever white count is trending down blood culture positive for Pseudomonas patient has clinic respond to cefepime which should be continued along with the probiotics care has been discussed in detail with the daughter as well as the at the bedside multiple question answered Dictation was produced using [employer] dictation software. please excuse any grammatical, word or spelling errors. Time with Patient: Less than 30
[2025-06-09] MEDS: HYDROmorphone 0.5 MG/0.5 ML SYRINGE IVP PRN (17:27)
[2025-06-09] MEDS: CEFEPIME 2 GM in SODIUM CHLORIDE 0.9% 100 ML IVPB SCH (17:27)
[2025-06-09] MEDS ORDERED: NITROGLYCERIN SL TABS 0.4 MG TAB SUBLINGUAL PRN (17:28)
[2025-06-09] MEDS ORDERED: traMADol 50 MG TAB PO PRN (17:28)
[2025-06-09 21:53] LABS: Glucose,Whole Blood 131 mg/dL (70-110)
[2025-06-09] MEDS: ATORVASTATIN 80 MG TAB PO SCH (22:59)
[2025-06-09] MEDS: BACLOFEN 10 MG TAB PO SCH (22:59)
[2025-06-09] MEDS: DOCUSATE 100 MG CAP PO SCH (22:59)
[2025-06-10 07:02] LABS: Glucose,Whole Blood 120 mg/dL (70-110)
[2025-06-10 07:56] LABS: HCT 34.4 % (39.6-50.0); HGB 12.0 g/dL (13.0-17.0); MCH 30.5 pg (27.0-32.0); MCHC 34.9 g/dL (32.0-37.0); MCV 87.3 FL (80.0-97.0); NRBC Per 100 WBC 0 X 10*3/uL (0.00-0.01); Platelet Count 103 X 10*3/uL (140-440); RBC 3.94 X 10*6/uL (4.40-5.60); RDW 13.5 % (11.5-14.5); WBC 15.03 X 10*3/uL (4.50-10.00)
[2025-06-10 08:20] LABS: Anion Gap 9.20 mmol/L (4.00-12.00); BUN/Creat Ratio 15.54 Ratio (12.00-20.00); Blood Urea Nitrogen 20.2 mg/dL (9.0-27.0); Carbon Dioxide 21.8 mmol/L (21.6-31.8); Chloride 104 mmol/L (96-109); Glucose 112 mg/dL (70-110); Potassium 3.5 mmol/L (3.5-5.5); Sodium 135 mmol/L (135-145)
[2025-06-10 08:21] LABS: Calcium 7.8 mg/dL (8.7-10.3)
[2025-06-10 08:32] LABS: Acanthocytes 2+ (None Seen); Basophils # (A) 0.04 X 10*3/uL (0.00-0.10); Basophils % (A) 0.3 %; Crenated RBC 2+ (None Seen); Eosinophils # (A) 0.18 X 10*3/uL (0.04-0.35); Eosinophils % (A) 1.2 %; Immature Grans, Automated 1.50 %; Lymphocytes # (A) 0.42 X 10*3/uL (0.90-5.00); Lymphocytes % (A) 2.8 %; Monocytes # (A) 0.76 X 10*3/uL (0.20-1.00); Monocytes % (A) 5.1 %; Neutrophils # (A) 13.40 X 10*3/uL (1.80-7.70); Neutrophils % (A) 89.1 %
[2025-06-10] MEDS: TAMSULOSIN 0.4 MG CAP.ER.24H PO SCH (09:03)
[2025-06-10] MEDS: ISOSORBIDE MONONITRATE ER 30 MG TAB.ER.24H PO SCH (09:03)
[2025-06-10] MEDS: FAMOTIDINE 20 MG TAB PO SCH (09:03)
--- NOTE | 2025-06-10 10:07 | P.PN ---
Subjective Progress Note Date: 06/10/25 HPI: Patient is a very pleasant 65-year-old male who is accompanied by his and daughter in the emergency room. The patient had a significant stroke in December 2023 and was left with severe left-sided weakness at his upper and lower extremity. He has long history of cardiac issues with multiple stents. He is unable to ambulate or transfer on his own due to his profound weakness of his left upper extremity and left lower extremity. The patient presented to the emergency room today as he was having fevers chills with nausea and vomiting. A week ago he had undergone surgery with urology for kidney stones. He had been making some progress at home but developed worsening with fevers and chills. He was having difficulty managing at home particularly with his history of hemiaplasia on the left side and was feeling further weakness. He denied any new chest pain or shortness of breath. On admission he had 102 degree fever with white blood count of 26.2. He was on hold in the emergency room to be admitted for a room and while he was getting off his commode he was being helped with an dental intern he was unable hold him and the patient fell onto his left side. He had sudden acute pain at his left hip and his left shoulder. He has history of profound weakness at his left upper extremity left lower extremity over the past year and a half since his stroke. Patient had further evaluation was found to have evidence of fracture had his left femoral neck and fracture at his left proximal humerus. We were consulted in regard to these. Patient denies prior fractures at his hip or his left upper extremity. Again he has severe weakness and is unable to mobilize on his own. He is weakness is at his left upper extremity and left lower extremity. He is unable to use his arm meaningfully. He is unable to use his left leg meaningfully. He uses significant assistance at home to transfer to a wheelchair and to get dressed and to use bathroom facilities. He is present with his family and apparently he has had some severe issues with surgeries in the past in terms of having cardiac arrest during his surgical procedures in the past. 06/10/2025 progress: No acute events overnight per patient family. Patient continues to have pain in the left upper and left lower extremity. Objective - Vital Signs Vital signs: Vital Signs Temp 99.7 F H 06/10/25 01:43 Pulse 94 06/10/25 01:43 Resp 15 06/10/25 01:43 BP 136/74 06/10/25 01:43 Pulse Ox 90 L 06/10/25 01:43 FiO2 Intake & Output 06/09/25 06/10/25 06/10/25 18:59 06:59 18:59 Intake Total 1620 Output Total 3 Balance 1617 Weight 77.111 kg Intake: Oral 1620 Output: Urine 3 Other: Voiding Method Indwelling Catheter # Bowel Movements 1 3 3 - Exam He has minimal motion of his left hand and fingers. He has no purposeful motion in his left arm. He has pain with motion and palpation of his proximal humerus. His compartments are soft. Chest has good excursion deep inspiration abdomen soft nontender. The patient is unable to ambulate due to his prior CVA Left hip has pain with internal/external rotation. His thigh and calf are soft and nontender. He has a flicker of motion at his toes on the left. His right lower extremity he is able to move with dorsiflexion plantarflexion EHL hip flexion and knee extension. - Labs CBC & Chem 7: 06/10/25 04:27 06/10/25 04:27 Labs: Abnormal Lab Results - Last 24 Hours (Table) 06/09/25 06/09/25 06/10/25 Range/Units 04:04 21:51 04:27 WBC 15.03 H (4.50-10.00) X 10*3/uL RBC 3.94 L (4.40-5.60) X 10*6/uL Hgb 12.0 L (13.0-17.0) g/dL Hct 34.4 L (39.6-50.0) % Plt Count 103 L (140-440) X 10*3/uL Immature Gran # 0.82 H 0.23 H (0.00-0.04) X 10*3/uL Neutrophils # 20.67 H 13.40 H (1.80-7.70) X 10*3/uL Lymphocytes # 0.36 L 0.42 L (0.90-5.00) X 10*3/uL Basophils # 0.18 H (0.00-0.10) X 10*3/uL Crenated Cell 2+ A 2+ A (None Seen) Elliptocytes 2+ A (None Seen) Acanthocytes (Spur) 2+ A 2+ A (None Seen) Glucose (70-110) mg/dL POC Glucose (mg/dL) 131 H (70-110) mg/dL Calcium (8.7-10.3) mg/dL 06/10/25 06/10/25 Range/Units 04:27 07:00 WBC (4.50-10.00) X 10*3/uL RBC (4.40-5.60) X 10*6/uL Hgb (13.0-17.0) g/dL Hct (39.6-50.0) % Plt Count (140-440) X 10*3/uL Immature Gran # (0.00-0.04) X 10*3/uL Neutrophils # (1.80-7.70) X 10*3/uL Lymphocytes # (0.90-5.00) X 10*3/uL Basophils # (0.00-0.10) X 10*3/uL Crenated Cell (None Seen) Elliptocytes (None Seen) Acanthocytes (Spur) (None Seen) Glucose 112 H (70-110) mg/dL POC Glucose (mg/dL) 120 H (70-110) mg/dL Calcium 7.8 L (8.7-10.3) mg/dL Microbiology - Last 24 Hours (Table) 06/08/25 08:18 Urine Culture - Final Urine,Voided Pseudomonas aeruginosa 06/08/25 06:55 Blood Culture Gram Stain - Preliminary Blood Blood Culture - Preliminary Molecular ID Assessment and Plan Assessment: Status post fall in the emergency room Acute left hip femoral neck fracture due to fall Acute left proximal humerus fracture due to fall Sepsis with urinary tract infection status post lithotripsy approximately 1 week left-sided hemiplegia due to cerebrovascular accident from December 2023 Nonambulator due to left lower extremity profound weakness and unable to use his left upper extremity purposefully History of severe coronary artery disease with multiple stents and history of cardiac arrest Plan: The patient has significant multiple medical history. He was being admitted in terms of his urosepsis post procedure. He started treatment for his sepsis appropriately. Unfortunately he sustained a fall in the emergency room and has new issues with acute fracture of his left hip femoral neck and left proximal humerus In regards to his proximal humerus fracture this can continue to be treated nonoperatively. Script for a shoulder immobilizer placed in his chart 06/10/2025. In regards to his left femoral neck fracture, Dr. Zuluaga and I met with the eula burton and discussed treatment options at length today. We discussed his best course of action would be surgical fixation of his left hip with hemiarthroplasty for the femoral neck fracture to allow the patient to improve his pain and allow better mobility positioning and activities of daily living. This would allow him to start to mobilize better and allow better pain control so that he can improve his overall function. They are interested in pursuing surgery and we will tentatively plan for surgery on 06/11/2025 pending clearances by internal medicine and cardiology.
--- NOTE | 2025-06-10 10:20 | P.CRDCN ---
History of Present Illness Consult date: 06/10/25 Reason for Consult (text): Surgical clearance History of present illness: This is a 65-year-old male follows with a consultant luxury and [employer]. vice president [employer] (ex ) at [facility] with past medical history of coronary artery disease with previous CABG and PCI, history of CA, hypertension, hyperlipidemia, diabetes mellitus type 2, history of stroke in 2023 with residual left-sided hemiaplasia. We have been asked to evaluate the patient for surgical clearance. Patient presented to the hospital due to fevers and chills, nausea and vomiting. He recently had kidney stones removed on 06/01. Of his commode chair at home injuring his left hip and left shoulder. He was found to have an acute left hip femoral neck fracture and an acute left proximal humerus fracture. Patient has been seen by orthopedic surgery and plan for surgical intervention of the left femoral fracture. No surgery is anticipated for the humerus fracture. Blood pressure 154/86, heart rate 68, pulse ox 93% on room air. Temperature max 104.6. Patient has been afebrile the last 24 hours -EKG: Sinus rhythm with Q waves in the inferior leads, poor R wave progression -Laboratory studies: WBC initially 26 now 15, hemoglobin 12, electrolytes and renal function are normal. Initial lactic acid 3.9 now 1.7. Procalcitonin 18.6. Urinalysis positive for infection. Cepheid viral panel not detected. Urine culture Pseudomonas. Blood culture molecular ID. -Home cardiac medications: Aspirin 81 mg daily, atorvastatin 80 mg at bedtime, Plavix 75 mg daily, Imdur 30 mg daily, metoprolol succinate 12.5 mg daily, ramipril 10 mg daily. Review Of Systems: At the time of my exam: CONSTITUTIONAL: Denies fever or chills. HEENT: Denies blurred vision, vision changes, or eye pain. Denies hemoptysis CARDIOVASCULAR: Denies chest pain. Denies orthopnea. Denies PND. Denies palpitations RESPIRATORY: Denies shortness of breath. GASTROINTESTINAL: Denies abdominal pain. Denies nausea or vomiting. HEMATOLOGIC: Denies bleeding disorders. GENITOURINARY: Denies any blood in urine. SKIN: Denies puritis. Denies rash. Physical examination: Gen: This is 65-year-old male no acute distress VS: reviewed HEENT: Head is atraumatic, normocephalic. Pupils equal, round. Sclerae is anicteric. NECK: Supple. No JVD. LUNGS: Clear to auscultation. No wheezes or rhonchi. No intercostal retractions. HEART: Regular rate and rhythm. ABDOMEN: Soft No tenderness. EXTREMITIES: No pedal edema. No calf tenderness. NEUROLOGICAL: Patient is awake, alert and oriented x3. Assessment: Sepsis secondary to complicated UTI due to recent urologic surgery and self- catheterization Lactic acidosis secondary to sepsis Fall Acute left hip femoral neck fracture secondary to fall, plan for surgical intervention Acute left proximal humerus fracture secondary to fall, conservative management Chronic left hemiaplasia from previous CVA History of C. difficile colitis History of coronary artery disease with previous CABG and PCI History of CA Hypertension Hyperlipidemia Diabetes Kidney stones with recent lithotripsy 06/01 Plan: Resume patient's home cardiac medications Resume Plavix once cleared by surgery Optimize blood pressure control Patient is at moderate risk for cardiovascular complications during the surgery. No absolute contraindications. Obtain 2-D echocardiogram and Doppler study to assess cardiac structure and function Further recommendations to follow based upon clinical course Patient will follow-up with his primary consultant luxury and [employer]. vice president [employer] (ex ) following discharge. Thank you kindly for this consultation. Nurse practitioner note has been reviewed, I agree with documented findings and plan of care. Patient was seen and examined. Past Medical History Past Medical History: Coronary Artery Disease (CAD), Chest Pain / Angina, CVA/TIA, Diabetes Mellitus, GERD/Reflux, Hyperlipidemia, Hypertension, Myocardial Infarction (CA), Osteoarthritis (OA), Prostate Disorder Additional Past Medical History / Comment(s): Left-sided hemiaplasia due to cere brovascular vascular December 2023. History of cardiac arrest. Multiple cardiac stents hx RENAL CALCULI. HEMOROIDS. stroke 12/2023 loss of appetite. 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 loss of filter at times. diet controlled diabetes - decreased appetite. left leg swelling. incontinent wears depends Last Myocardial Infarction Date:: 2002,2016. History of Any Multi-Drug Resistant Organisms: C-DIFF Date of last positivie culture/infection: 12/2023 MDRO Source:: stool Past Surgical History: Cholecystectomy, Coronary Bypass/CABG, Heart Catheterization With Stent, Prostate Surgery Additional Past Surgical History / Comment(s): TURP x2. LITHOTRIPSY. 9 stents. colonoscopy, eye surgery as a child. Past Anesthesia/Blood Transfusion Reactions: No Reported Reaction Date of Last Stent Placement:: 2020 Past Psychological History: Depression Smoking Status: Never smoker Past Alcohol Use History: None Reported Past Drug Use History: Marijuana Additional Drug Use History / Comment(s): takes dronabinol for appetite improvement, aware not to take 24 hrs before procedure - Past Family History Father Additional Family Medical History / Comment(s): brain tumor, Mother Family Medical History: Coronary Artery Disease (CAD), Deep Vein Thrombosis (DVT) Additional Family Medical History / Comment(s): cabg Sister(s) Family Medical History: Coronary Artery Disease (CAD), Renal Disease Medications and Allergies Home Medications Medication Instructions Recorded Confirmed Type Aspirin [Adult Low Dose Aspirin EC] 81 mg PO DAILY 06/17/20 06/08/25 History Atorvastatin [Lipitor] 80 mg PO HS 06/17/20 06/08/25 History Calcium Carbonate [Tums] 500 - 1,000 mg PO DAILY PRN 06/17/20 06/08/25 History Clopidogrel [Plavix] 75 mg PO DAILY 06/17/20 06/08/25 History Tamsulosin [Flomax] 0.4 mg PO DAILY #10 cap 04/21/24 06/08/25 Rx Acetaminophen [Tylenol] 325 mg PO Q6H PRN 05/28/25 06/08/25 History Baclofen 10 mg PO BID 05/28/25 06/08/25 History Docusate [Colace] 100 mg PO BID 05/28/25 06/08/25 History FLUoxetine HCL [Fluoxetine HCl] 40 mg PO DAILY 05/28/25 06/08/25 History Famotidine 20 mg PO DAILY 05/28/25 06/08/25 History Gabapentin 300 mg PO HS 05/28/25 06/08/25 History Isosorbide Mononitrate ER [Imdur] 30 mg PO DAILY 05/28/25 06/08/25 History Metoprolol Succinate (ER) [Toprol 12.5 mg PO DAILY 05/28/25 06/08/25 History Xl] Nitroglycerin 0.4 mg SL Q5M PRN 05/28/25 06/08/25 History droNABinol 5 mg PO DAILY 05/28/25 06/08/25 History traZODone HCL [Desyrel] 50 mg PO HS 05/28/25 06/08/25 History traMADol HCl [Ultram] 50 mg PO Q6HR PRN 3 Days #12 tab 06/01/25 06/08/25 Rx ramipriL 10 mg PO DAILY 06/08/25 06/08/25 History Allergies Allergy/AdvReac Type Severity Reaction Status Date / Time No Known Allergies Allergy Verified 06/08/25 10:53 Physical Exam Vitals: Vital Signs Temp Pulse Resp BP Pulse Ox 06/10/25 01:43 99.7 F H 94 15 136/74 90 L 06/09/25 19:14 98.9 F 86 15 144/78 92 L 06/09/25 16:34 99.7 F H 83 16 156/83 93 L Intake and Output 06/09/25 06/10/25 06/10/25 22:59 06:59 14:59 Intake Total 1620 Output Total 3 Balance 1617 Intake: Oral 1620 Output: Urine 3 Other: Voiding Method Indwelling Catheter # Bowel Movements 1 3 3 Weight 77.111 kg Results 06/10/25 04:27 06/10/25 04:27 CBC 06/10/25 Range/Units 04:27 WBC 15.03 H (4.50-10.00) X 10*3/uL RBC 3.94 L (4.40-5.60) X 10*6/uL Hgb 12.0 L (13.0-17.0) g/dL Hct 34.4 L (39.6-50.0) % Plt Count 103 L (140-440) X 10*3/uL Comprehensive Metabolic Panel 06/10/25 Range/Units 04:27 Sodium 135 (135-145) mmol/L Potassium 3.5 (3.5-5.5) mmol/L Chloride 104 (96-109) mmol/L Carbon Dioxide 21.8 (21.6-31.8) mmol/L BUN 20.2 (9.0-27.0) mg/dL Creatinine 1.3 (0.6-1.5) mg/dL Glucose 112 H (70-110) mg/dL Calcium 7.8 L (8.7-10.3) mg/dL Current Medications Generic Name Dose Route Start Last Admin Trade Name Freq PRN Reason Stop Dose Admin Acetaminophen 650 mg 06/09/25 23:11 Acetaminophen Tab 325 Mg Tab PO Q6HR PRN Fever and/ or Pain Atorvastatin Calcium 80 mg 06/09/25 21:00 06/09/25 22:59 Atorvastatin 80 Mg Tab PO 80 mg HS ARIELA Administration Baclofen 10 mg 06/09/25 21:00 06/09/25 22:59 Baclofen 10 Mg Tab PO 10 mg BID ARIELA Administration Calcium Carbonate/Glycine 1,000 mg 06/09/25 17:28 Calcium Carbonate 500 Mg Chewable PO DAILY PRN Indigestion Docusate Sodium 100 mg 06/09/25 21:00 06/10/25 07:52 Docusate 100 Mg Cap PO Not Given BID [facility] Famotidine 20 mg 06/10/25 09:00 Famotidine 20 Mg Tab PO DAILY [facility] Fluoxetine HCl 40 mg 06/10/25 09:00 Fluoxetine Hcl 20 Mg Cap PO DAILY [facility] Gabapentin 300 mg 06/08/25 23:33 06/09/25 22:59 Gabapentin 300 Mg Cap PO 300 mg HS [facility] Administration Hydromorphone HCl 0.5 mg 06/09/25 13:22 06/09/25 17:27 Hydromorphone 0.5 Mg/0.5 Ml Syringe IVP 0.5 mg Q4HR PRN Administration Pain Lactated Ringer's 1,000 mls @ 130 mls/hr 06/08/25 09:30 06/10/25 01:38 Lactated Ringers IV Not Given .[id number] [facility] Acetaminophen 1,000 mg/ IV 100 mls @ 400 mls/hr 06/08/25 12:00 06/10/25 06:38 Solution IVPB 400 mls/hr Q6H ARIELA Administration Cefepime HCl 2 gm/ Sodium 100 mls @ 25 mls/hr 06/09/25 18:00 06/10/25 06:59 Chloride IVPB 25 mls/hr Q12H ARIELA Administration Protocol Isosorbide Mononitrate 30 mg 06/10/25 09:00 Isosorbide Mononitrate Er 30 Mg Tab.Er.24h PO DAILY ARIELA Lactobacillus Acidophilus 1 each 06/09/25 09:00 06/09/25 22:59 Lactobacillus Acidophilus/Pect 1 Each Capsule PO 1 each QID ARIELA Administration Naloxone HCl 0.2 mg 06/08/25 10:21 Naloxone 0.4 Mg/Ml 1 Ml Vial IV Q2M PRN Opioid Reversal Nitroglycerin 0.4 mg 06/09/25 17:28 Nitroglycerin Sl Tabs 0.4 Mg Tab SUBLINGUAL Q5M PRN Chest Pain Non-Formulary Medication 5 mg 06/10/25 09:00 Dronabinol [Dronabinol] PO DAILY [facility] Ondansetron HCl 4 mg 06/08/25 10:21 06/09/25 00:05 Ondansetron 4 Mg/2 Ml Vial IVP 4 mg Q8HR PRN Administration Nausea And Vomiting Tamsulosin HCl 0.4 mg 06/10/25 09:00 Tamsulosin 0.4 Mg Cap.Er.24h PO DAILY [facility] Tramadol HCl 50 mg 06/08/25 23:33 06/09/25 11:56 Tramadol 50 Mg Tab PO 50 mg QID PRN Administration Pain Trazodone HCl 50 mg 06/08/25 23:45 06/09/25 22:59 Trazodone Hcl 50 Mg Tab PO 50 mg HS ARIELA Administration Intake and Output 06/09/25 06/10/25 06/10/25 22:59 06:59 14:59 Intake Total 1620 Output Total 3 Balance 1617 Intake: Oral 1620 Output: Urine 3 Other: Voiding Method Indwelling Catheter # Bowel Movements 1 3 3 Weight 77.111 kg 06/10/25 04:27 06/10/25 04:27
[2025-06-10 11:41] LABS: Glucose,Whole Blood 136 mg/dL (70-110)
--- NOTE | 2025-06-10 12:00 | P.PN ---
Subjective This is a pleasant 65 years old male with past medical history of multiple medical problems as below Information were obtained with the help of his . Patient presents because stent placed and kidney stone removed from both sides about a week ago with Dr. Vasquez, Last night he started developing nausea vomiting, he did not eat his dinner. 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 No overt fever at home. Denies chest pain or dyspnea. His dyspnea mainly on the right side and right flank He has been constipated since last Saturday which is usual for him He had fever on admission 102 point stable. Has leukocytosis 26.2 rest of BMP and LFT were unremarkable CT of the abdomen and but there is no obstructive uropathy and there is multi 06/09 Patient is very tired and weak Is seen in bed most of the time No other specific complaint, pain controlled Blood culture came back positive He remains on Ringer lactate 130 on cefepime antibiotic Urology team evaluated the patient, no hydronephrosis or retention requiring intervention however bilateral ureteral stents came back accidentally and they were removed. Will keep monitoring 06/10 Patient seen examined at bedside, he is status post fall 2 days ago in the hospital with fracture of the left humerus and left hip. Patient evaluated by orthopedic team and plan for surgical fixation of his left hip tomorrow. Patient initially wanted to be transferred to [facility] or other hospital but changed his mind and he agrees to stay and do the surgery tomorrow after he talk to the orthopedic team. Patient has a history of cardiac arrest therefore preop cardiac evaluation requested and reviewed. Lisin opril 10 mg twice daily added. Patient at some risk from his surgical procedure but there is no cont raindication He remains on cefepime for Pseudomonas UTI and bacteremia and he is improving. Neurology also following after 2 stents removed. Daughter at bedside and all questions answered to their satisfaction Review of systems PULMONARY: No shortness of breath, no cough, no hemoptysis. GASTROINTESTINAL: No diarrhea, no nausea, no vomiting, no abdominal pain. Normoactive bowel sounds. NEUROLOGICAL: No headaches, no weakness, no numbness. HEMATOLOGICAL: Denies any bleeding or petechiae. GENITOURINARY: Denies any burning micturition, frequency, or urgency. MUSCULOSKELETAL/RHEUMATOLOGICAL: Denies any joint pain, swelling, or any muscle pain. ENDOCRINE: Denies any polyuria or polydipsia. Active Medications Generic Name Dose Route Start Last Admin Trade Name Freq PRN Reason Stop Dose Admin Acetaminophen 650 mg 06/09/25 23:11 Acetaminophen Tab 325 Mg Tab PO Q6HR PRN Fever and/ or Pain Atorvastatin Calcium 80 mg 06/09/25 21:00 06/09/25 22:59 Atorvastatin 80 Mg Tab PO 80 mg HS ARIELA Administration Baclofen 10 mg 06/09/25 21:00 06/10/25 09:06 Baclofen 10 Mg Tab PO 10 mg BID ARIELA Administration Calcium Carbonate/Glycine 1,000 mg 06/09/25 17:28 Calcium Carbonate 500 Mg Chewable PO DAILY PRN Indigestion Docusate Sodium 100 mg 06/09/25 21:00 06/10/25 07:52 Docusate 100 Mg Cap PO Not Given BID ARIELA Famotidine 20 mg 06/10/25 09:00 06/10/25 09:03 Famotidine 20 Mg Tab PO 20 mg DAILY ARIELA Administration Fluoxetine HCl 40 mg 06/10/25 09:00 06/10/25 09:03 Fluoxetine Hcl 20 Mg Cap PO 40 mg DAILY ARIELA Administration Gabapentin 300 mg 06/08/25 23:33 06/09/25 22:59 Gabapentin 300 Mg Cap PO 300 mg HS ARIELA Administration Hydromorphone HCl 0.5 mg 06/09/25 13:22 06/09/25 17:27 Hydromorphone 0.5 Mg/0.5 Ml Syringe IVP 0.5 mg Q4HR PRN Administration Pain Lactated Ringer's 1,000 mls @ 130 mls/hr 06/08/25 09:30 06/10/25 01:38 Lactated Ringers IV Not Given .Q7H42M ARIELA Acetaminophen 1,000 mg/ IV 100 mls @ 400 mls/hr 06/08/25 12:00 06/10/25 06:38 Solution IVPB 400 mls/hr Q6H ARIELA Administration Cefepime HCl 2 gm/ Sodium 100 mls @ 25 mls/hr 06/09/25 18:00 06/10/25 06:59 Chloride IVPB 25 mls/hr Q12H ARIELA Administration Protocol Isosorbide Mononitrate 30 mg 06/10/25 09:00 06/10/25 09:03 Isosorbide Mononitrate Er 30 Mg Tab.Er.24h PO 30 mg DAILY [facility] Administration Lactobacillus Acidophilus 1 each 06/09/25 09:00 06/10/25 09:03 Lactobacillus Acidophilus/Pect 1 Each Capsule PO 1 each QID ARIELA Administration Lisinopril 10 mg 06/10/25 09:15 Lisinopril 10 Mg Tab PO BID ARIELA Naloxone HCl 0.2 mg 06/08/25 10:21 Naloxone 0.4 Mg/Ml 1 Ml Vial IV Q2M PRN Opioid Reversal Nitroglycerin 0.4 mg 06/09/25 17:28 Nitroglycerin Sl Tabs 0.4 Mg Tab SUBLINGUAL Q5M PRN Chest Pain Non-Formulary Medication 5 mg 06/10/25 09:00 Dronabinol [Dronabinol] PO DAILY [facility] Ondansetron HCl 4 mg 06/08/25 10:21 06/09/25 00:05 Ondansetron 4 Mg/2 Ml Vial IVP 4 mg Q8HR PRN Administration Nausea And Vomiting Tamsulosin HCl 0.4 mg 06/10/25 09:00 06/10/25 09:03 Tamsulosin 0.4 Mg Cap.Er.24h PO 0.4 mg DAILY [facility] Administration Tramadol HCl 50 mg 06/08/25 23:33 06/09/25 11:56 Tramadol 50 Mg Tab PO 50 mg QID PRN Administration Pain Trazodone HCl 50 mg 06/08/25 23:45 06/09/25 22:59 Trazodone Hcl 50 Mg Tab PO 50 mg HS ARIELA Administration Objective - Vital Signs Vital signs: Vital Signs Temp 98.0 F 06/10/25 07:15 Pulse 68 06/10/25 08:00 Resp 16 06/10/25 08:00 BP 154/86 06/10/25 07:15 Pulse Ox 93 L 06/10/25 07:15 FiO2 Intake & Output 06/09/25 06/10/25 06/10/25 18:59 06:59 18:59 Intake Total 1620 Output Total 3 Balance 1617 Weight 77.111 kg Intake: Oral 1620 Output: Urine 3 Other: Voiding Method Indwelling Catheter Diaper # Voids 1 # Bowel Movements 1 3 3 - Exam -GENERAL: The patient is alert and oriented x3, not in any acute distress. Well developed, well nourished. Generally weak and lethargic HEENT: Pupils are round and equally reacting to light. EOMI. No scleral icterus. No conjunctival pallor. Normocephalic, atraumatic. No pharyngeal erythema. No thyromegaly. CARDIOVASCULAR: S1 and S2 present. No murmurs, rubs, or gallops. PULMONARY: Chest is clear to auscultation, no wheezing , no crackles. ABDOMEN: Soft, nontender, nondistended, normoactive bowel sounds. No palpable organomegaly. MUSCULOSKELETAL: No joint swelling or deformity. EXTREMITIES: No cyanosis, clubbing, or pedal edema. NEUROLOGICAL: Gross neurological examination did not reveal any focal deficits. SKIN: No rashes. no petechiae. - Labs CBC & Chem 7: 06/10/25 04:27 06/10/25 04:27 Labs: Abnormal Lab Results - Last 24 Hours (Table) 06/09/25 06/10/25 06/10/25 Range/Units 21:51 04:27 04:27 WBC 15.03 H (4.50-10.00) X 10*3/uL RBC 3.94 L (4.40-5.60) X 10*6/uL Hgb 12.0 L (13.0-17.0) g/dL Hct 34.4 L (39.6-50.0) % Plt Count 103 L (140-440) X 10*3/uL Immature Gran # 0.23 H (0.00-0.04) X 10*3/uL Neutrophils # 13.40 H (1.80-7.70) X 10*3/uL Lymphocytes # 0.42 L (0.90-5.00) X 10*3/uL Crenated Cell 2+ A (None Seen) Acanthocytes (Spur) 2+ A (None Seen) Glucose 112 H (70-110) mg/dL POC Glucose (mg/dL) 131 H (70-110) mg/dL Calcium 7.8 L (8.7-10.3) mg/dL 06/10/25 06/10/25 Range/Units 07:00 11:40 WBC (4.50-10.00) X 10*3/uL RBC (4.40-5.60) X 10*6/uL Hgb (13.0-17.0) g/dL Hct (39.6-50.0) % Plt Count (140-440) X 10*3/uL Immature Gran # (0.00-0.04) X 10*3/uL Neutrophils # (1.80-7.70) X 10*3/uL Lymphocytes # (0.90-5.00) X 10*3/uL Crenated Cell (None Seen) Acanthocytes (Spur) (None Seen) Glucose (70-110) mg/dL POC Glucose (mg/dL) 120 H 136 H (70-110) mg/dL Calcium (8.7-10.3) mg/dL Microbiology - Last 24 Hours (Table) 06/08/25 06:55 Blood Culture Gram Stain - Preliminary Blood Blood Culture - Preliminary Pseudomonas aeruginosa Molecular ID 06/08/25 08:18 Urine Culture - Final Urine,Voided Pseudomonas aeruginosa Assessment and Plan Assessment: Sepsis with leukocytosis and fever urinary tract infection Patient had recent stone removal with stent placement 1 week earlier. Bilateral stents accidentally came out on 06/08 Coronary artery disease, status post CABG and stent Fall in the hospital followed by left humeral and femoral fracture History of stroke and left hemiparesis Diabetes mellitus Hypertension Hyperlipidemia History of osteoarthritis Gastroesophageal reflux disease Benign prostatic hypertrophy Plan: Patient at some risk from surgery but there is no absolute contraindication Orthopedic team planning for left hip surgery on 06/11. Preop cardiac evaluation is requested. Continue with cefepime Continue with IV fluid Infectious disease team consult Urology team consult, no need for intervention for now Labs and medication were reviewed.. Continue same treatment. Continue with symptomatic treatment. Resume home medication. Monitor lytes and vitals. DVT and GI prophylaxis. Further recommendations depends on the clinical course of the patient DVT prophylaxis: Subcutaneous heparin GI Prophylaxis: Pepcid PT/OT: Pending Prognosis is guarded
[2025-06-10] MEDS: CALCIUM CARBONATE 500 MG CHEWABLE PO PRN (12:44)
[2025-06-10 17:00] LABS: Glucose,Whole Blood 106 mg/dL (70-110)
--- NOTE | 2025-06-10 18:22 | P.PN ---
Subjective Progress Note Date: 06/10/25 Follow-up for sepsis/UTI Patient is a 65-year-old male with a past medical history significant for Coronary Artery Disease (CAD), Chest Pain / Angina, CVA/TIA, Diabetes Mellitus, GERD/Reflux, Hyperlipidemia, Hypertension, Myocardial Infarction (NM), Osteoarthritis (OA), Prostate Disorder, currently was admitted in December 2023 at [facility] with CVA and also developed C. difficile colitis and apparently took almost 2 months to clear of his C. difficile infection as reported by the family patient recently on 06/01/2025 he did have a bilateral renal stent placement for multiple renal calculi patient did receive a dose of antibiotic perioperatively and was not discharged on any antibiotics patient now presenting to the hospital concerning for rigors and chills that started this morning and the patient also complaining of weakness apparently did have some low abdominal generalized pain along with bodyaches and episode of nausea and vomiting patient apparently has been dealing with hematuria off and on since his procedure on presentation to the hospital patient did have a temperature of 102.7 F patient was mildly tachycardic but not hypotensive or hypoxic no need for supplemental oxygen he did have elevated lactic acid white count of 26.28 creatinine has been normal urine has been positive influenza RSV COVID testing has been negative patient did have abdominal pelvis CT no CT evidence for acute abdominal process no evidence for obstructive uropathy with bilateral ureteral stent identified no evidence for hematoma or abscess patient was started on Rocephin infectious he was consulted for further management of antibiotic therapy Today 06/10/2025 patient is states he has no shortness of breath, nausea, vomiting, abdominal pain or dysuria. He did have a fall yesterday in ER and is [facility]. Febrile overnight temperature 99.7 and 4 PM and 99.7 at 2 AM and has been afebrile since that time. He is breathing comfortably on room air. Patient white count is 15.0, creatinine 1.3, blood culture negative bacilli Pseudomonas. Objective - Vital Signs Vital signs: Vital Signs Temp 98.0 F 06/10/25 07:15 Pulse 68 06/10/25 07:15 Resp 16 06/10/25 07:15 BP 154/86 06/10/25 07:15 Pulse Ox 93 L 06/10/25 07:15 FiO2 Intake & Output 07/08/2606/10/25 06/10/25 18:59 06:59 18:59 Intake Total 1620 Output Total 3 Balance 1617 Weight 77.111 kg Intake: Oral 1620 Output: Urine 3 Other: Voiding Method Indwelling Catheter # Bowel Movements 1 3 3 - Exam GENERAL DESCRIPTION: Elderly male lying in bed, no distress. No tachypnea or accessory muscle of respiration use. LUNGS: Unlabored breathing. Clear to auscultation anteriorly. No wheeze or crackle. HEART: S1, S2, regular rate and rhythm. No loud murmur ABDOMEN: Soft, no tenderness NEUROLOGICAL: The patient is awake, alert, mood and affect normal. - Labs CBC & Chem 7: 06/10/25 04:27 06/10/25 04:27 Labs: Abnormal Lab Results - Last 24 Hours (Table) 06/09/25 06/09/25 06/10/25 Range/Units 04:04 21:51 04:27 WBC 15.03 H (4.50-10.00) X 10*3/uL RBC 3.94 L (4.40-5.60) X 10*6/uL Hgb 12.0 L (13.0-17.0) g/dL Hct 34.4 L (39.6-50.0) % Plt Count 103 L (140-440) X 10*3/uL Immature Gran # 0.82 H 0.23 H (0.00-0.04) X 10*3/uL Neutrophils # 20.67 H 13.40 H (1.80-7.70) X 10*3/uL Lymphocytes # 0.36 L 0.42 L (0.90-5.00) X 10*3/uL Basophils # 0.18 H (0.00-0.10) X 10*3/uL Crenated Cell 2+ A 2+ A (None Seen) Elliptocytes 2+ A (None Seen) Acanthocytes (Spur) 2+ A 2+ A (None Seen) Glucose (70-110) mg/dL POC Glucose (mg/dL) 131 H (70-110) mg/dL Calcium (8.7-10.3) mg/dL 06/10/25 06/10/25 Range/Units 04:27 07:00 WBC (4.50-10.00) X 10*3/uL RBC (4.40-5.60) X 10*6/uL Hgb (13.0-17.0) g/dL Hct (39.6-50.0) % Plt Count (140-440) X 10*3/uL Immature Gran # (0.00-0.04) X 10*3/uL Neutrophils # (1.80-7.70) X 10*3/uL Lymphocytes # (0.90-5.00) X 10*3/uL Basophils # (0.00-0.10) X 10*3/uL Crenated Cell (None Seen) Elliptocytes (None Seen) Acanthocytes (Spur) (None Seen) Glucose 112 H (70-110) mg/dL POC Glucose (mg/dL) 120 H (70-110) mg/dL Calcium 7.8 L (8.7-10.3) mg/dL Microbiology - Last 24 Hours (Table) 06/08/25 08:18 Urine Culture - Final Urine,Voided Pseudomonas aeruginosa 06/08/25 06:55 Blood Culture Gram Stain - Preliminary Blood Blood Culture - Preliminary Molecular ID Assessment and Plan (1) History of Clostridioides difficile colitis Current Visit: Yes Status: Acute Code(s): Z86.19 - PERSONAL HISTORY OF OTHER INFECTIOUS AND PARASITIC DISEASES SNOMED Code(s): 317605434 (2) Sepsis Current Visit: Yes Status: Acute Code(s): A41.9 - SEPSIS, UNSPECIFIED ORGANISM SNOMED Code(s): 63434813 (3) UTI (urinary tract infection) Current Visit: Yes Status: Acute Code(s): N39.0 - URINARY TRACT INFECTION, SITE NOT SPECIFIED SNOMED Code(s): 93813093 Plan: 1patient was in the hospital with sepsis in this patient due to fever tachycardia elevated white count meeting criteria for SIRS/Sepsis source likely urinary in this patient did have a history of bilateral renal stones requiring cystoscopy and bilateral ureteral stent placement on 06/01/2025 did have urinary symptoms of burning hematuria suprapubic pain as well as significantly positive UA will need to cover for the resistant gram-negative to the likely pathogen. 2-patient also have a complicated history of C. difficile colitis requiring extensive vancomycin therapy in December 2023 and will be high risk of recurrent C. difficile colitis. 3-discontinue Rocephin. 4-we will start the patient on cefepime 2 g every 8 hours. Preliminary blood culture finding of Pseudomonas. Waiting for the culture to finalize. Zosyn not indicated at this time. Repeat cultures taken to further assess readiness for possible hip surgery. Monitor for clinical improvement. 5-patient has been started on probiotics family has been encouraged to give at least 1 yogurt with each meal 3 times a day. Multiple questions have been answered Quoc Jaffe MD Internal Medicine Resident, PGY2 Infectious disease service Patient was personally seen and examined care discussed in detail with the resident physician documentation reviewed and agree, patient did have vomiting pulmonary sputum but her white count is trending down unfortunately the patient had a fall with resultant left femoral and humerus fracture and orthopedics is planning for operative repair of the left femoral fracture I did discuss in deta il with Dr. Zuluaga the surgeon hold the operating on this patient tomorrow regarding his bacteremia patient seem to have responded clinically well to the IV antibiotic therapy we will coordinate repeat blood cultures today to document clearance of his bacteremia at the time of surgical procedure Multiple question concern from the family were answered in layman term abdirashid goff MD Dictation was produced using [employer] dictation software. please excuse any grammatical, word or spelling errors. Time with Patient: Less than 30
[2025-06-10] MEDS: DRONABINOL 5 MG PO SCH (18:29)
[2025-06-10] MEDS: ACETAMINOPHEN TAB 325 MG TAB PO PRN (20:31)
[2025-06-10 21:16] LABS: Glucose,Whole Blood 99 mg/dL (70-110)
[2025-06-11 05:00] LABS: Basophils # (A) 0.05 10*3/uL (0.00-0.10); Basophils % (A) 0.4 %; Eosinophils # (A) 0.36 10*3/uL (0.04-0.35); Eosinophils % (A) 2.8 %; HCT 32.9 % (39.6-50.0); Lymphocytes # (A) 0.73 10*3/uL (0.90-5.00); Lymphocytes % (A) 5.6 %; MCH 30.0 pg (27.0-32.0); MCHC 35.3 g/dL (32.0-37.0); MCV 85.0 fL (80.0-97.0); Monocytes # (A) 0.96 10*3/uL (0.20-1.00); Monocytes % (A) 7.4 %; Neutrophils # (A) 10.80 10*3/uL (1.80-7.70); Neutrophils % (A) 82.9 %; Platelet Count 113 10*3/uL (140-440); RBC 3.87 10*6/uL (4.40-5.60); RDW 13.5 % (11.5-14.5); WBC 13.02 10*3/uL (4.50-10.00)
[2025-06-11 05:06] LABS: African American GFR (CKD) 78 (>60 ml/min/1.73 sqM); Anion Gap 9 mmol/L; Blood Urea Nitrogen 22 mg/dL (9-20); Calcium 8.1 mg/dL (8.4-10.2); Carbon Dioxide 20 mmol/L (22-30); Chloride 105 mmol/L (98-107); Glucose 92 mg/dL (74-99); Non-African American GFR(CKD) 67 (>60 ml/min/1.73 sqM); Potassium 3.6 mmol/L (3.5-5.1); Sodium 134 mmol/L (137-145)
[2025-06-11 05:07] LABS: HGB 11.6 g/dL (13.0-17.0)
[2025-06-11 06:24] LABS: Glucose,Whole Blood 94 mg/dL (70-110)
--- NOTE | 2025-06-11 10:08 | P.PN ---
Subjective This is a pleasant 65 years old male with past medical history of multiple medical problems as below Information were obtained with the help of his . Patient presents because stent placed and kidney stone removed from both sides about a week ago with Dr. Vasquez, Last night he started developing nausea vomiting, he did not eat his dinner. 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 No overt fever at home. Denies chest pain or dyspnea. His dyspnea mainly on the right side and right flank He has been constipated since last Saturday which is usual for him He had fever on admission 102 point stable. Has leukocytosis 26.2 rest of BMP and LFT were unremarkable CT of the abdomen and but there is no obstructive uropathy and there is multi 06/09 Patient is very tired and weak Is seen in bed most of the time No other specific complaint, pain controlled Blood culture came back positive He remains on Ringer lactate 130 on cefepime antibiotic Urology team evaluated the patient, no hydronephrosis or retention requiring intervention however bilateral ureteral stents came back accidentally and they were removed. Will keep monitoring 06/10 Patient seen examined at bedside, he is status post fall 2 days ago in the hospital with fracture of the left humerus and left hip. Patient evaluated by orthopedic team and plan for surgical fixation of his left hip tomorrow. Patient initially wanted to be transferred to [facility] or other hospital but changed his mind and he agrees to stay and do the surgery tomorrow after he talk to the orthopedic team. Patient has a history of cardiac arrest therefore preop cardiac evaluation requested and reviewed. Lisin opril 10 mg twice daily added. Patient at some risk from his surgical procedure but there is no cont raindication He remains on cefepime for Pseudomonas UTI and bacteremia and he is improving. Neurology also following after 2 stents removed. Daughter at bedside and all questions answered to their satisfaction 06/11 Patient awake comfortable Denies pain He has some diarrhea but is improving/to 2 episodes compared to admission No chest pain or dyspnea Patient and at bedside are concerns about surgery and infection. Patient has been followed closely by orthopedic team. Also patient responded to antibiotics for his infection. Urine and blood culture are growing sensitive Pseudomonas. Leukocytosis decreased by more than 50%. Symptoms improved. Infectious disease are planning to repeat blood culture to ensure clearance of the infection Active Medications Generic Name Dose Route Start Last Admin Trade Name Freq PRN Reason Stop Dose Admin Acetaminophen 650 mg 06/09/25 23:11 06/10/25 20:31 Acetaminophen Tab 325 Mg Tab PO 650 mg Q6HR PRN Administration Fever and/ or Pain Atorvastatin Calcium 80 mg 06/09/25 21:00 06/10/25 20:32 Atorvastatin 80 Mg Tab PO 80 mg HS ARIELA Administration Baclofen 10 mg 06/09/25 21:00 06/11/25 08:29 Baclofen 10 Mg Tab PO 10 mg BID ARIELA Administration Calcium Carbonate/Glycine 1,000 mg 06/09/25 17:28 06/10/25 12:44 Calcium Carbonate 500 Mg Chewable PO 1,000 mg DAILY PRN Administration Indigestion Docusate Sodium 100 mg 06/09/25 21:00 06/11/25 08:29 Docusate 100 Mg Cap PO 100 mg BID ARIELA Administration Famotidine 20 mg 06/10/25 09:00 06/11/25 08:29 Famotidine 20 Mg Tab PO 20 mg DAILY ARIELA Administration Fluoxetine HCl 40 mg 06/10/25 09:00 06/11/25 08:29 Fluoxetine Hcl 20 Mg Cap PO 40 mg DAILY ARIELA Administration Gabapentin 300 mg 06/08/25 23:33 06/10/25 20:32 Gabapentin 300 Mg Cap PO 300 mg HS ARIELA Administration Hydromorphone HCl 0.5 mg 06/09/25 13:22 06/09/25 17:27 Hydromorphone 0.5 Mg/0.5 Ml Syringe IVP 0.5 mg Q4HR PRN Administration Pain Lactated Ringer's 1,000 mls @ 130 mls/hr 06/08/25 09:30 06/11/25 06:12 Lactated Ringers IV Not Given .Q7H42M ARIELA Acetaminophen 1,000 mg/ IV 100 mls @ 400 mls/hr 06/08/25 12:00 06/11/25 05:35 Solution IVPB 400 mls/hr Q6H ARIELA Administration Cefepime HCl 2 gm/ Sodium 100 mls @ 25 mls/hr 06/09/25 18:00 06/11/25 06:10 Chloride IVPB 25 mls/hr Q12H ARIELA Administration Protocol Isosorbide Mononitrate 30 mg 06/10/25 09:00 06/11/25 08:29 Isosorbide Mononitrate Er 30 Mg Tab.Er.24h PO 30 mg DAILY ARIELA Administration Lactobacillus Acidophilus 1 each 06/09/25 09:00 06/11/25 08:28 Lactobacillus Acidophilus/Pect 1 Each Capsule PO 1 each QID ARIELA Administration Lisinopril 10 mg 06/10/25 09:15 06/11/25 08:29 Lisinopril 10 Mg Tab PO 10 mg BID ARIELA Administration Naloxone HCl 0.2 mg 06/08/25 10:21 Naloxone 0.4 Mg/Ml 1 Ml Vial IV Q2M PRN Opioid Reversal Nitroglycerin 0.4 mg 06/09/25 17:28 Nitroglycerin Sl Tabs 0.4 Mg Tab SUBLINGUAL Q5M PRN Chest Pain Non-Formulary Medication 5 mg 06/10/25 09:00 06/11/25 08:21 Dronabinol [Dronabinol] PO Not Given DAILY [facility] Ondansetron HCl 4 mg 06/08/25 10:21 06/09/25 00:05 Ondansetron 4 Mg/2 Ml Vial IVP 4 mg Q8HR PRN Administration Nausea And Vomiting Tamsulosin HCl 0.4 mg 06/10/25 09:00 06/11/25 08:29 Tamsulosin 0.4 Mg Cap.Er.24h PO 0.4 mg DAILY ARIELA Administration Tramadol HCl 50 mg 06/08/25 23:33 06/09/25 11:56 Tramadol 50 Mg Tab PO 50 mg QID PRN Administration Pain Trazodone HCl 50 mg 06/08/25 23:45 06/10/25 20:32 Trazodone Hcl 50 Mg Tab PO 50 mg HS ARIELA Administration Objective - Vital Signs Vital signs: Vital Signs Temp 99.0 F 06/11/25 07:50 Pulse 72 06/11/25 07:50 Resp 18 06/11/25 07:50 BP 172/89 06/11/25 07:50 Pulse Ox 95 06/11/25 07:50 FiO2 Intake & Output 06/10/25 06/11/25 06/11/25 18:59 06:59 18:59 Other: Voiding Method Diaper # Voids 4 3 1 # Bowel Movements 1 2 - Exam -GENERAL: The patient is alert and oriented x3, not in any acute distress. Well developed, well nourished. Generally weak and lethargic HEENT: Pupils are round and equally reacting to light. EOMI. No scleral icterus. No conjunctival pallor. Normocephalic, atraumatic. No pharyngeal erythema. No thyromegaly. CARDIOVASCULAR: S1 and S2 present. No murmurs, rubs, or gallops. PULMONARY: Chest is clear to auscultation, no wheezing , no crackles. ABDOMEN: Soft, nontender, nondistended, normoactive bowel sounds. No palpable organomegaly. MUSCULOSKELETAL: No joint swelling or deformity. EXTREMITIES: No cyanosis, clubbing, or pedal edema. NEUROLOGICAL: Gross neurological examination did not reveal any focal deficits. SKIN: No rashes. no petechiae. - Labs CBC & Chem 7: 06/11/25 04:12 06/11/25 04:12 Labs: Abnormal Lab Results - Last 24 Hours (Table) 06/10/25 06/11/25 06/11/25 Range/Units 11:40 04:12 04:12 WBC 13.02 H (4.50-10.00) 10*3/uL RBC 3.87 L (4.40-5.60) 10*6/uL Hgb 11.6 L D (13.0-17.0) g/dL Hct 32.9 L (39.6-50.0) % Plt Count 113 L (140-440) 10*3/uL Immature Gran # 0.12 H (0.00-0.04) 10*3/uL Neutrophils # 10.80 H (1.80-7.70) 10*3/uL Lymphocytes # 0.73 L (0.90-5.00) 10*3/uL Eosinophils # 0.36 H (0.04-0.35) 10*3/uL Sodium 134 L (137-145) mmol/L Carbon Dioxide 20 L (22-30) mmol/L BUN 22 H (9-20) mg/dL POC Glucose (mg/dL) 136 H (70-110) mg/dL Calcium 8.1 L (8.4-10.2) mg/dL Microbiology - Last 24 Hours (Table) 06/08/25 06:55 Blood Culture Gram Stain - Final Blood Blood Culture - Final Pseudomonas aeruginosa Molecular ID 06/08/25 08:18 Urine Culture - Final Urine,Voided Pseudomonas aeruginosa Assessment and Plan Assessment: Sepsis with leukocytosis and fever urinary tract infection Patient had recent stone removal with stent placement 1 week earlier. Bilateral stents accidentally came out on 06/08 Coronary artery disease, status post CABG and stent Fall in the hospital followed by left humeral and femoral fracture History of stroke and left hemiparesis Diabetes mellitus Hypertension Hyperlipidemia History of osteoarthritis Gastroesophageal reflux disease Benign prostatic hypertrophy Plan: Patient at some risk from surgery but there is no absolute contraindication Orthopedic team planning for left hip surgery on 06/11. Preop cardiac evaluation is requested and reviewed Repeat blood culture ordered by our infectious disease team Continue with cefepime Continue with IV fluid Infectious disease team consult Urology team consult, no need for intervention for now Labs and medication were reviewed.. Continue same treatment. Continue with symptomatic treatment. Resume home medication. Monitor lytes and vitals. DVT and GI prophylaxis. Further recommendations depends on the clinical course of the patient DVT prophylaxis: Subcutaneous heparin GI Prophylaxis: Pepcid PT/OT: Pending Prognosis is guarded
--- NOTE | 2025-06-11 10:39 | P.PN ---
Subjective Progress Note Date: 06/11/25 Principal diagnosis: UTI, renal calculi The patient underwent ureteroscopic removal of bilateral renal calculi 1 week ago. He was admitted with a UTI. His ureteral stents were removed. Urine and blood cultures both show Pseudomonas. On the day following admission, he fell and sustained fractures of his left femoral neck and left proximal humerus. He is being treated with Cefepime. He denies dysuria and states that his hematuria has almost resolved. Objective - Vital Signs Vital signs: Vital Signs Temp 97.8 F 06/11/25 01:10 Pulse 71 06/11/25 01:10 Resp 17 06/11/25 01:10 BP 158/75 06/11/25 01:10 Pulse Ox 92 L 06/11/25 01:10 FiO2 Intake & Output 06/10/25 06/11/25 06/11/25 18:59 06:59 18:59 Other: Voiding Method Diaper # Voids 4 3 # Bowel Movements 1 2 - Constitutional General appearance: Present: average body habitus, cooperative, no acute distress - Psychiatric Psychiatric: Present: A&O x's 3 - Labs CBC & Chem 7: 06/11/25 04:12 06/11/25 04:12 Labs: Abnormal Lab Results - Last 24 Hours (Table) 06/10/25 06/10/25 06/10/25 Range/Units 04:27 04:27 11:40 WBC 15.03 H (4.50-10.00) X 10*3/uL RBC 3.94 L (4.40-5.60) X 10*6/uL Hgb 12.0 L (13.0-17.0) g/dL Hct 34.4 L (39.6-50.0) % Plt Count 103 L (140-440) X 10*3/uL Immature Gran # 0.23 H (0.00-0.04) X 10*3/uL Neutrophils # 13.40 H (1.80-7.70) X 10*3/uL Lymphocytes # 0.42 L (0.90-5.00) X 10*3/uL Eosinophils # (0.04-0.35) 10*3/uL Crenated Cell 2+ A (None Seen) Acanthocytes (Spur) 2+ A (None Seen) Sodium (137-145) mmol/L Carbon Dioxide (22-30) mmol/L BUN (9-20) mg/dL Glucose 112 H (70-110) mg/dL POC Glucose (mg/dL) 136 H (70-110) mg/dL Calcium 7.8 L (8.7-10.3) mg/dL 06/11/25 06/11/25 Range/Units 04:12 04:12 WBC 13.02 H (4.50-10.00) X 10*3/uL RBC 3.87 L (4.40-5.60) X 10*6/uL Hgb 11.6 L D (13.0-17.0) g/dL Hct 32.9 L (39.6-50.0) % Plt Count 113 L (140-440) X 10*3/uL Immature Gran # 0.12 H (0.00-0.04) X 10*3/uL Neutrophils # 10.80 H (1.80-7.70) X 10*3/uL Lymphocytes # 0.73 L (0.90-5.00) X 10*3/uL Eosinophils # 0.36 H (0.04-0.35) 10*3/uL Crenated Cell (None Seen) Acanthocytes (Spur) (None Seen) Sodium 134 L (137-145) mmol/L Carbon Dioxide 20 L (22-30) mmol/L BUN 22 H (9-20) mg/dL Glucose (70-110) mg/dL POC Glucose (mg/dL) (70-110) mg/dL Calcium 8.1 L (8.7-10.3) mg/dL Microbiology - Last 24 Hours (Table) 06/08/25 06:55 Blood Culture Gram Stain - Preliminary Blood Blood Culture - Preliminary Pseudomonas aeruginosa Molecular ID 06/08/25 08:18 Urine Culture - Final Urine,Voided Pseudomonas aeruginosa Assessment and Plan (1) UTI (urinary tract infection) Current Visit: Yes Status: Acute Code(s): N39.0 - URINARY TRACT INFECTION, SITE NOT SPECIFIED SNOMED Code(s): 98382341 (2) Calculus of kidney Current Visit: Yes Status: Acute Code(s): N20.0 - CALCULUS OF KIDNEY SNOMED Code(s): 02364006 Plan: - Continue cefepime - I have no further recommendations at this time
--- NOTE | 2025-06-11 11:30 | CA ---
Transthoracic Echo Report Name: Gerald Pack Age: 65 Gender: M : 1960 Exam Date: 06/10/2025 14:10 Exam Location: [facility] Ht (in): 69 Wt (lb): 170 Ordering Physician: Shanna Carrillo Attending/Referring Phys: [id number], Gerardo Screwhead [employer] Fatoumata Holliday, REMY Procedure CPT: Indications: abnormal ekg Cardiac Hx: Technical Quality: Fair Contrast 1: Total Dose (mL): Contrast 2: Total Dose (mL): MEASUREMENTS (Male / Female) Normal Values 2D ECHO LV Diastolic Diameter PLAX 5.8 cm 4.2 - 5.9 / 3.9 - 5.3 cm LV Systolic Diameter PLAX 4.6 cm IVS Diastolic Thickness 1.1 cm 0.6 - 1.0 / 0.6 - 0.9 cm LVPW Diastolic Thickness 1.1 cm 0.6 - 1.0 / 0.6 - 0.9 cm LV Relative Wall Thickness 0.4 RV Internal Dim ED PLAX 2.3 cm LVOT Diameter 2.4 cm LA Systolic Diameter LX 5.0 cm 3.0 - 4.0 / 2.7 - 3.8 cm LV Diastolic Volume MOD BP 120.7 cm??? 67 - 155 / 56 - 104 cm??? LV Systolic Volume MOD BP 77.7 cm??? 22 - 58 / 19 - 49 cm??? LV Ejection Fraction MOD BP 35.7 % >= 55 % LV Cardiac Index MOD BP 1372.8 cm???/min???m??? LV Diastolic Volume MOD 4C 118.8 cm??? LV Systolic Volume MOD 4C 75.7 cm??? LV Ejection Fraction MOD 4C 36.3 % LV Cardiac Index MOD 4C 1374.0 cm???/min???m??? LV Diastolic Length 4C 6.8 cm LV Systolic Length 4C 7.3 cm LV Diastolic Volume MOD 2C 114.0 cm??? LV Systolic Volume MOD 2C 67.8 cm??? LV Ejection Fraction MOD 2C 40.5 % LV Cardiac Index MOD 2C 1472.1 cm???/min???m??? LV Diastolic Length 2C 7.3 cm LV Systolic Length 2C 6.1 cm LA Volume 68.0 cm??? 18 - 58 / 22 - 52 cm??? LA Volume Index 34.9 cm???/m??? 16 - 28 cm???/m??? M-MODE Aortic Root Diameter MM 3.4 cm LA Systolic Diameter MM 4.6 cm LA Ao Ratio MM 1.4 AV Cusp Separation MM 1.5 cm DOPPLER MV Area PHT 2.1 cm??? Mitral E Point Velocity 77.1 cm/s Mitral A Point Velocity 70.3 cm/s Mitral E to A Ratio 1.1 MV Deceleration Time 361.7 ms TR Peak Velocity 161.4 cm/s TR Peak Gradient 10.4 mmHg FINDINGS Left Ventricle Left ventricular ejection fraction is estimated at 30-35 %. Mildly increased septal wall thickness. Moderately increased left ventricular systolic volume. Moderately decreased left ventricular ejection fraction. Right Ventricle Mild right ventricular dilatation. Right Atrium Mild right atrial dilatation. Left Atrium Moderately increased left atrial diameter. Mildly increased left atrial volume. Mildly increased left atrial area. Mitral Valve Structurally normal mitral valve. [id number] mitral regurgitation. No mitral stenosis. Aortic Valve Trileaflet aortic valve. No aortic stenosis. Diffuse thickening (sclerosis) of the aortic valve cusps without reduced excursion. No aortic regurgitation. Tricuspid Valve Structurally normal tricuspid valve. No tricuspid stenosis. Mild tricuspid regurgitation. Pulmonic Valve Structurally normal pulmonic valve. No pulmonic stenosis. Trace pulmonic regurgitation. Pericardium No pericardial or pleural effusion. Echo free space anterior to the right ventricle likely represents a fat pad. Aorta Normal size aortic root and proximal ascending aorta. CONCLUSIONS Reason: Abnormal EKG Dilated left ventricle with reduced LV systolic function Left ventricular ejection fraction 35% RV enlargement Previewed by: Dr. Sina Tse MD (Electronically Signed) Final Date: 11 June 2025 11:29
[2025-06-11 12:22] LABS: Glucose,Whole Blood 93 mg/dL (70-110)
[2025-06-11] MEDS: DEXAMETHASONE SOD PHOSPHATE 4 MG/ML 1 ML VIAL IVP STA (13:40)
[2025-06-11] MEDS: LACTATED RINGERS 1,000 ML IV SCH (13:43)
--- NOTE | 2025-06-11 13:47 | P.PN ---
Progress Note - Text Progress Note Date: 06/11/25 I met with the patient and his family both yesterday and this morning to discuss his hip fracture and treatment options. We also discussed his multiple medical issues including urosepsis with positive blood and urine cultures. Both Dr. Walden with infectious disease and myself again met with the patient and his family this afternoon. The patient and his family understand that he is at a high risk of surgical complication particularly infection. My recommendation to address his displaced femoral neck fracture was a cemented hip hemiarthroplasty. We discussed the procedure at length including the potential risks and complications. We again acknowledged the patient's infection and multiple medical issues including stroke, left-sided hemiplegia, and decreased functional status at baseline. Both the patient, his , and daughter understand this. We all agreed that it would be in his best interest to proceed with surgery to facilitate early mobilization and give him the best chance of regaining his preinjury level of function. The patient and his family understand his elevated risk and provided their consent to go forward with surgery.
[2025-06-11 13:50] LABS: Glucose,Whole Blood 99 mg/dL (70-110)
[2025-06-11] MEDS: IV FLUID CONTINUATION 1,000 ML IV ONE (13:51)
[2025-06-11] MEDS ORDERED: MIDAZOLAM 2 MG/2 ML VIAL ONE (14:08)
[2025-06-11] MEDS ORDERED: TRANEXAMIC 1,000 MG/100ML-NACL PREMIX BAG ONE (14:08)
[2025-06-11] MEDS ORDERED: GLYCOPYRROLATE 0.2 MG/ML 2 ML VIAL ONE (14:08)
[2025-06-11] MEDS ORDERED: HYDROmorphone (PF) 1 MG/ML ONE (14:08)
[2025-06-11] MEDS ORDERED: LIDOCAINE 1% INJ 10MG/ML (20 ML MDV) ONE (14:08)
[2025-06-11] MEDS ORDERED: fentaNYL (PF) 50 MCG/ML 2 ML AMP ONE (14:08)
[2025-06-11] MEDS ORDERED: NEOSTIGMINE 1 MG/ML 10 ML VIAL ONE (14:08)
[2025-06-11] MEDS ORDERED: PROPOFOL 10 MG/ML 20 ML VIAL IV ONE (14:08)
[2025-06-11] MEDS ORDERED: SUCCINYLCHOLINE CHLORIDE 200 MG/10 ML VIAL IV ONE (14:08)
[2025-06-11] MEDS ORDERED: PHENYLEPHRINE-0.9% NACL SYG 1,000 MCG/10 ML SYRINGE ONE (14:08)
[2025-06-11] MEDS ORDERED: ROCURONIUM 10 MG/ML (5 ML VIAL) IV ONE (14:08)
[2025-06-11] MEDS ORDERED: ROPIVACAINE/EPI/CLONIDINE/KET 50 ML SYRINGE MISCELLANE PRN (15:09)
[2025-06-11] MEDS: VANCOMYCIN 1,000 MG VIAL MISCELLANE ONE (15:54)
[2025-06-11] MEDS: TOBRAMYCIN SULFATE 1.2 GM VIAL MISCELLANE ONE (15:54)
--- NOTE | 2025-06-11 16:10 | P.PN ---
Subjective Progress Note Date: 06/11/25 Principal diagnosis: Reason for follow-up is sepsis/UTI/bacteremia Patient is a 65-year-old male with a past medical history significant for Coronary Artery Disease (CAD), Chest Pain / Angina, CVA/TIA, Diabetes Mellitus, GERD/Reflux, Hyperlipidemia, Hypertension, Myocardial Infarction ([place]), Osteoarthritis (OA), Prostate Disorder, recently on 06/01/2025 he did have a lesly ateral renal stent placement for multiple renal calculi with subsequent admission to hospital with sepsis secondary to urinary source and did have a positive blood culture with Pseudomonas. On today's evaluation that is 06/11/2025, the patient did have an improvement in his fever pattern with low-grade fever of 99.0 degree for hide this morning afebrile this afternoon patient is more awake alert he is breathing comfortably no chest pain shortness of breath or cough no abdominal pain did have some pain to the left hip area on movement otherwise seem to be doing well. Patient white count is down to 13.02, creatinine 1.13 blood culture obtained yesterday so far pending Objective - Vital Signs Vital signs: Vital Signs Temp 99.0 F 06/11/25 07:50 Pulse 72 06/11/25 07:50 Resp 18 06/11/25 07:50 BP 172/89 06/11/25 07:50 Pulse Ox 95 06/11/25 07:50 FiO2 Intake & Output 06/10/25 06/11/25 06/11/25 18:59 06:59 18:59 Other: Voiding Method Diaper # Voids 4 3 1 # Bowel Movements 1 2 - Exam GENERAL DESCRIPTION: Elderly male lying in bed, no distress. No tachypnea or accessory muscle of respiration use. LUNGS: Unlabored breathing. Clear to auscultation anteriorly. No wheeze or crackle. HEART: S1, S2, regular rate and rhythm. No loud murmur ABDOMEN: Soft, no tenderness NEUROLOGICAL: The patient is awake, alert, mood and affect normal. - Labs CBC & Chem 7: 06/11/25 04:12 06/11/25 04:12 Labs: Abnormal Lab Results - Last 24 Hours (Table) 06/11/25 06/11/25 Range/Units 04:12 04:12 WBC 13.02 H (4.50-10.00) 10*3/uL RBC 3.87 L (4.40-5.60) 10*6/uL Hgb 11.6 L D (13.0-17.0) g/dL Hct 32.9 L (39.6-50.0) % Plt Count 113 L (140-440) 10*3/uL Immature Gran # 0.12 H (0.00-0.04) 10*3/uL Neutrophils # 10.80 H (1.80-7.70) 10*3/uL Lymphocytes # 0.73 L (0.90-5.00) 10*3/uL Eosinophils # 0.36 H (0.04-0.35) 10*3/uL Sodium 134 L (137-145) mmol/L Carbon Dioxide 20 L (22-30) mmol/L BUN 22 H (9-20) mg/dL Calcium 8.1 L (8.4-10.2) mg/dL Microbiology - Last 24 Hours (Table) 06/08/25 06:55 Blood Culture Gram Stain - Final Blood Blood Culture - Final Pseudomonas aeruginosa Molecular ID Assessment and Plan (1) History of Clostridioides difficile colitis Current Visit: Yes Status: Acute Code(s): Z86.19 - PERSONAL HISTORY OF OTHER INFECTIOUS AND PARASITIC DISEASES SNOMED Code(s): 767391271 (2) Sepsis Current Visit: Yes Status: Acute Code(s): A41.9 - SEPSIS, UNSPECIFIED ORGANISM SNOMED Code(s): 73313300 (3) UTI (urinary tract infection) Current Visit: Yes Status: Acute Code(s): N39.0 - URINARY TRACT INFECTION, SITE NOT SPECIFIED SNOMED Code(s): 32840832 Plan: 1patient was in the hospital with sepsis in this patient due to fever tachycardia elevated white count meeting criteria for SIRS/Sepsis source likely urinary in this patient did have a history of bilateral renal stones requiring cystoscopy and bilateral ureteral stent placement on 06/01/2025 did have urinary symptoms of burning hematuria suprapubic pain as well as significantly positive UA will need to cover for the resistant gram-negative to the likely pathogen. 2-patient did have a positive blood culture with Pseudomonas aeruginosa urine is growing the same pathogen 3patient clinical course complicated by fall with evidence of left hip fracture for the patient need to have a surgical repair more than 30 minutes of time was spent with the patient and and daughter in the presence of orthopedic surgeon multiple question concern has been answered in layman term and the patient family satisfaction, they finally agreed to go for the surgery this afternoon we will continue patient on cefepime and I also repeated blood culture yesterday and those results will be followed Dictation was produced using [employer] dictation software. please excuse any grammatical, word or spelling errors. Time with Patient: Greater than 30
--- NOTE | 2025-06-11 16:21 | FL ---
EXAMINATION TYPE: FL guidance operating room, XR Hip Limited LT DATE OF EXAM: 06/11/2025 4:13 PM COMPARISON: Pre Operative Images if available both CT/MRI or plain film CLINICAL INDICATION: Male, 65 years old with history of LEFT ANTERIOR HIP; TECHNIQUE: FL guidance operating room, XR Hip Limited LT, multiple fluoroscopic images provided for p rocedure. DAP: 1.2250 mGym2 Gycm2 uGym2 cGycm2 or equivalent. FINDINGS: Fluoroscopic images during internal fixation/arthroplasty demonstrate hardware in appropriate positio n. Hardware appears intact. No immediate complication identified. IMPRESSION: 1. No evidence for intraoperative complication. 2. Please see the operative/procedural note for further details. [facility], , 06/11/2025 4:18 PM
[2025-06-11] MEDS ORDERED: MAGNESIUM HYDROXIDE 2,400 MG/30 ML CUP PO PRN (16:37)
[2025-06-11] MEDS ORDERED: HYDROmorphone 0.5 MG/0.5 ML SYRINGE IVP PRN ×3 (16:37)
[2025-06-11] MEDS ORDERED: NALOXONE 0.4 MG/ML 1 ML VIAL IV PRN (16:37)
--- NOTE | 2025-06-11 16:37 | P.OP ---
Date of Procedure: 06/11/25 Preoperative Diagnosis: 1. Displaced left subcapital femoral neck fracture 2. History of stroke with left hemiaplasia 3. Urinary tract infection with bacteremia on IV antibiotics 4. Severe osteoporosis 5. Minimally displaced left proximal humerus fracture Postoperative Diagnosis: Same Procedure(s) Performed: 1. Left direct anterior hip hemiarthroplasty 2. Application of negative pressure incisional wound VAC, left hip, DME, less than 50 cm, incision measuring 13 cm Implants: Huyen Accolade C Size 4 with 48 mm OD bipolar head, 28 mm ID head with +0mm neck Anesthesia: LYNETTE, regional Surgeon: Carlos Zuluaga Real Estate Assistant #1: Ar Herrera Estimated Blood Loss (ml): 300 IV fluids (ml): 800 Pathology: none sent Condition: stable Disposition: PACU Indications for Procedure: The patient is a very pleasant 65-year-old male with multiple medical problems including having had a prior stroke with resultant left-sided hemiaplasia who has had issues with urinary tract infections and bacteremia. The patient recently fell while in the hospital off of a commode and sustained a displaced left subcapital femoral neck fracture and a minimally displaced left proximal humerus fracture. I was asked by my partner to assume care of the patient's left hip fracture. I met with the patient and his family to discuss treatment options. Please see my prior text progress note for further details. I met with the patient and their family to discuss treatment options. The patient has a displaced femoral neck fracture and based on their age, activity level, and medical comorbidities I recommended a hip hemiarthroplasty to facilitate early mobilization. My recommendation was to perform the hemiarthroplasty through a direct anterior approach to help lower the risk of dislocation and improve postoperative recovery and use cemented fixation of the femoral component to reduce the risk of fracture and postoperative thigh pain. We discussed the potential risks and complications of a hemiarthroplasty for displaced femoral neck fracture at length. Risks discussed include are certainly not limited to risks from anesthesia, superficial infection requiring local wound care and possibly surgical debridement, deep periprosthetic joint infection and the treatment for this, damage to local blood vessels or nerves particularly the lateral femoral cutaneous nerve, intraoperative fracture, post operative periprosthetic fracture, leg length discrepancy, hip dislocation, aseptic loosening, groin pain, thigh pain, progression of arthritis requiring conversion to total hip arthroplasty, complications related to cementing the component, an inability to regain preinjury level of function, DVT, PE, acute coronary event, stroke, pneumonia, urinary tract infection, failure to thrive, and possibly . The patient and their family understand that while these are the most common complications other less common complications are possible. They provided their verbal and written consent to go forward with surgery. Operative Findings: There was a large hemarthrosis consistent with an acute femoral neck fracture. There was a displaced subcapital femoral neck fracture. The patient was found to have exceedingly poor bone quality consistent with advanced osteoporosis. Description of Procedure: The patient was identified in the preoperative holding area and the correct hip was marked with my initials. I reviewed the procedure and consent with the patient. All of their questions were answered. The patient was then brought back into the operating room by anesthesia. While on the [facility] anesthesia was administered by the anesthesia team. Preoperative antibiotics and tranexamic acid were also given. After the patient was under anesthesia I examined their ankles to determine their preoperative leg length discrepancy. The skin over the anterior aspect of the hip was shaved to remove hair over the site of planned incision. Both feet and ankles were padded with webril and boots for the [place] were applied. The patient was then carefully transferred onto the [place] table. A perineal post was immediately placed. The arms were placed on arm holders and were well-padded. Both boots were secured to the spars on the [place] table. The patient was positioned so that the pelvis was centered over the post. Nonsterile drapes were applied. A timeout was performed identifying the correct patient, operative extremity, and procedure. At this point fluoroscopy was brought in to take preoperative images of the pelvis and operative hip. A metallic bar was used to create a bi-ischial line for use as a reference to leg length adjustments during the procedure. Global offset was also measured on both the operative and nonoperative leg. Fluoroscopy was then brought out and a pre-scrub using a chlorhexidine scrub brush was performed. The operative limb was then prepped and draped in the standard sterile fashion. An anterior longitudinal incision was made lateral and distal to the ASIS. The skin and subcutaneous tissues were incised sharply. The underlying tensor fascia was identified and incised in its midportion. The fascia was dissected free from the underlying muscle and the muscle belly was retracted. A blunt tipped cobra retractor was placed over the superior neck under the muscle fibers of the gluteus minimus. The deep enveloping fascia of the tensor was incised. The anterior leash of vessels were then identified and cauterized. The fascia between the rectus and the capsule was then incised and the pre-capsular fat was excised. A second Cobra was placed inferior to the neck. The interval between the rectus and iliocapsularis and the hip capsule was developed and a retractor was placed carefully over the anterior rim of the acetabulum. A T-shaped anterior capsulotomy was performed. A hemarthrosis consistent with a femoral neck fracture was identified. The superior capsular leaflet was left in place in the inferior capsular flap was excised. The Cobra retractors were placed intracapsularly. A displaced femoral neck fracture was then identified. We then made a femoral neck osteotomy according to preoperative and intraoperative templating and confirmed the level of the osteotomy using fluoroscopic imaging. The femoral head was removed, passed off to the back table, and sized. The superior capsular flap was excised. On inspection of the acetabulum there were minimal degenerative changes with intact cartilage. Attention was then turned to the femur. The remnant dorsal lateral capsule was excised. The short external rotators were visible and protected. A bone hook was used to confirm appropriate translation of the trochanter away from the acetabulum. The leg was then extended and adducted and the bone hook was used to elevate the femur for broaching. A box osteotome and blunt tipped canal sound was then utilized to gain access to the femoral canal. We then sequ entially broached the femur in appropriate anteversion until torsional stability was achieved and the implant was felt to have reached the appropriate size to allow trialing. The neck cut was brought flush to the trial broach with a calcar planar. A trial neck and head were then placed onto the broach and the hip was atraumatically reduced under direct visualization. External rotation to 90 was performed to assess stability. Fluoroscopy was brought in. An AP and lateral fluoroscopic image of the proximal femur was obtained to assess position and fill of the trial broach. An AP of the pelvis was then obtained and matched to the preoperative image taken. A bi-ischial bar was then placed and measurements were taken to assess changes in length and offset. The hip was then carefully dislocated, the proximal femur was exposed, and the trial implants were removed. The proximal femur was then prepared for cementing. The canal was thoroughly irrigated with pulsatile lavage to remove blood and marrow contents. A cement restrictor was placed to a depth just distal to the tip of the final implant. Epinephrine-soaked gauze was then packed into the proximal femur. 2 bags of cement with antibiotics were then mixed using a centrifuge and placed into a cement gun. Anesthesia was notified that cementing was about to commence to make sure the patient was appropriately ventilated and hydrated. Once the cement had reached appropriate consistency, the cement gun was used to fill the canal in a retrograde fashion starting at the restrictor. Cement was then pressurized into the canal with a blue tipped crown assembly machine operator. The stem was then carefully introduced into the cement taking care to guide the implant into appropriate version. The stem was held in position until the cement had fully set. All extra cement was removed while the cement was hardening. The trunnion was cleansed and the final head was tapped into place to engage the Acevedo taper. The acetabulum was irrigated and visualized to be free of debris. The hip was carefully reduced. Stability was checked clinically with external rotation to 90 and there was no evidence of instability. Final fluoroscopic images were taken. The wound was then thoroughly irrigated with Irrisept. 3 L of sterile saline was irrigated through the wound using pulsatile lavage. Local anesthetic cocktail was injected into the soft tissues around the surgical field. 2 g of vancomycin powder and 1 g of tobramycin powder was placed deep within the wound around the implants. The wound was then closed in layers. An additional wound VAC was placed over the surgical incision. The drapes were taken down and the patient was carefully transferred off of the [place] table. Following removal of the boots the leg lengths felt acceptable. The patient was then taken to recovery room having tolerated the procedure well. Ar Herrera PA-C was required as a skilled loan officer assistant due to the complexity of surgery for patient positioning, draping, exposure, retraction, closure of wound and application of dressing. PLAN: The patient can weight-bear as tolerated on the operative extremity. 2 doses of postoperative Ancef for surgical prophylaxis and will then defer to infectious disease for long-term suppressive antibiotics given the patient's elevated risk of infection due to his prior urinary tract infection and positive blood cultures. DVT prophylaxis -okay to resume Plavix tomorrow. Physical therapy for gait training.
[2025-06-11 16:38] LABS: Glucose,Whole Blood 130 mg/dL (70-110)
[2025-06-11] MEDS: CEFEPIME 2 GM in SODIUM CHLORIDE 0.9% 100 ML IVPB SCH (17:00)
[2025-06-11] MEDS: SODIUM CHLORIDE 0.9% 1,000 ML IV SCH (17:00)
[2025-06-11 18:41] LABS: Basophils # (A) 0.03 10*3/uL (0.00-0.10); Basophils % (A) 0.3 %; Eosinophils # (A) 0.03 10*3/uL (0.04-0.35); Eosinophils % (A) 0.3 %; HCT 32.0 % (39.6-50.0); HGB 11.0 g/dL (13.0-17.0); Lymphocytes # (A) 0.24 10*3/uL (0.90-5.00); Lymphocytes % (A) 2.4 %; MCH 30.1 pg (27.0-32.0); MCHC 34.4 g/dL (32.0-37.0); MCV 87.7 fL (80.0-97.0); Monocytes # (A) 0.39 10*3/uL (0.20-1.00); Monocytes % (A) 3.9 %; Neutrophils # (A) 9.19 10*3/uL (1.80-7.70); Neutrophils % (A) 92.3 %; Platelet Count 103 10*3/uL (140-440); RBC 3.65 10*6/uL (4.40-5.60); RDW 13.6 % (11.5-14.5); WBC 9.96 10*3/uL (4.50-10.00)
[2025-06-11 20:18] LABS: Glucose,Whole Blood 182 mg/dL (70-110)
[2025-06-11] MEDS: SENNOSIDES-DOCUSATE SODIUM 1 EACH TAB PO SCH (20:57)
[2025-06-12 06:05] LABS: Glucose,Whole Blood 139 mg/dL (70-110)
[2025-06-12] MEDS: HYDROcodone/APAP 5-325MG 1 EACH TAB PO PRN (08:52)
--- NOTE | 2025-06-12 11:29 | P.PN ---
Subjective The patient was seen this morning at bedside. Overall he is doing well. His hip pain is improved from before surgery but he is having some thigh discomfort. He otherwise has no complaints. Objective - Vital Signs Vital signs: Vital Signs Temp 97.9 F 06/12/25 06:43 Pulse 75 06/12/25 06:43 Resp 18 06/12/25 06:43 BP 143/81 06/12/25 06:43 Pulse Ox 96 06/12/25 06:43 FiO2 Intake & Output 06/11/25 06/12/25 06/12/25 18:59 06:59 18:59 Intake Total 960 Output Total 300 500 Balance 660 -500 Intake: IV 900 Oral 60 Output: Urine 100 500 Straight 500 Estimated Blood Loss 200 Other: Voiding Method Diaper Urinal # Voids 1 - Exam The patient is resting comfortably in bed. He is alert and able to answer questions but the patient's states that he is slightly confused which she attributes to anesthesia and pain medications. A focused examination of the left lower extremity was conducted. On inspection there is an intact incisional wound VAC with good seal. Femoral nerve function is intact. He does have some movement in his toes which is his baseline given his stroke and history of hemiplegia. - Labs CBC & Chem 7: 06/11/25 18:11 06/11/25 04:12 Labs: Abnormal Lab Results - Last 24 Hours (Table) 06/11/25 06/11/25 06/11/25 Range/Units 16:37 18:11 20:17 RBC 3.65 L (4.40-5.60) 10*6/uL Hgb 11.0 L (13.0-17.0) g/dL Hct 32.0 L (39.6-50.0) % Plt Count 103 L (140-440) 10*3/uL Immature Gran # 0.08 H (0.00-0.04) 10*3/uL Neutrophils # 9.19 H (1.80-7.70) 10*3/uL Lymphocytes # 0.24 L (0.90-5.00) 10*3/uL Eosinophils # 0.03 L (0.04-0.35) 10*3/uL POC Glucose (mg/dL) 130 H 182 H (70-110) mg/dL 06/12/25 Range/Units 06:03 RBC (4.40-5.60) 10*6/uL Hgb (13.0-17.0) g/dL Hct (39.6-50.0) % Plt Count (140-440) 10*3/uL Immature Gran # (0.00-0.04) 10*3/uL Neutrophils # (1.80-7.70) 10*3/uL Lymphocytes # (0.90-5.00) 10*3/uL Eosinophils # (0.04-0.35) 10*3/uL POC Glucose (mg/dL) 139 H (70-110) mg/dL Microbiology - Last 24 Hours (Table) 06/10/25 12:15 Blood Culture - Preliminary Blood 06/08/25 06:55 Blood Culture Gram Stain - Final Blood Blood Culture - Final Pseudomonas aeruginosa Molecular ID Assessment and Plan Assessment: Postoperative day #1 status post left direct anterior hip hemiarthroplasty for displaced subcapital femoral neck fracture Urinary tract infection with positive blood cultures, resolving History of stroke with resultant left-sided hemiaplasia Plan: 1. Weight-bear as tolerated left lower extremity with assistance and a walker, attempt to mobilize out of bed as able 2. Leave incisional wound VAC in place 3. 2 doses postoperative Ancef for surgical prophylaxis followed by antibiotics ordered by infectious disease for his urinary tract infection and positive blood cultures 4. DVT prophylaxis -I will ultimately defer to internal medicine on when to resume Plavix. There is no absolute surgical contraindication to restarting Plavix today, but my preference would be to use aspirin 81 mg twice daily for 1 week and then resume Plavix. If internal medicine thinks that medically he would benefit from resuming Plavix earlier than 1 week he can restart today. 5. The patient had exceedingly poor bone quality during surgery consistent with his history of stroke and hemiaplasia. I will order a 25-hydroxy vitamin D level and would also recommend starting the patient on calcium and vitamin D trivedi pplementation per primary service 6. Discharge planning in progress
[2025-06-12 11:38] LABS: Glucose,Whole Blood 180 mg/dL (70-110)
[2025-06-12] MEDS: TAMSULOSIN 0.4 MG CAP.ER.24H PO ONE (11:58)
--- NOTE | 2025-06-12 15:09 | P.PN ---
Subjective Progress Note Date: 06/12/25 Principal diagnosis: Reason for follow-up is sepsis/UTI/bacteremia Patient is a 65-year-old male with a past medical history significant for Coronary Artery Disease (CAD), Chest Pain / Angina, CVA/TIA, Diabetes Mellitus, GERD/Reflux, Hyperlipidemia, Hypertension, Myocardial Infarction (IA), Osteoarthritis (OA), Prostate Disorder, recently on 06/01/2025 he did have a lesly ateral renal stent placement for multiple renal calculi with subsequent admission to hospital with sepsis secondary to urinary source and did have a positive blood culture with Pseudomonas. Patient is status post Left direct anterior hip hemiarthroplasty for displaced left subcapital femoral neck fr acture completed on 06/11/2025. On today's evaluation that is 06/12/2024, patient did have a temperature of 98.1 F this afternoon and denies having any chills, patient is on 2 L nasal cannula oxygen and breathing comfortably no chest pain or cough, the patient did not have any nausea vomiting abdominal pain or any diarrhea, denies pain to the left hip area. Patient white count normalized to 9.96 blood culture from 06/10/2025 negative Objective - Vital Signs Vital signs: Vital Signs Temp 97.9 F 06/12/25 06:43 Pulse 75 06/12/25 06:43 Resp 18 06/12/25 06:43 BP 143/81 06/12/25 06:43 Pulse Ox 96 06/12/25 06:43 FiO2 Intake & Output 06/11/25 06/12/25 06/12/25 18:59 06:59 18:59 Intake Total 960 Output Total 300 500 Balance 660 -500 Intake: IV 900 Oral 60 Output: Urine 100 500 Straight 500 Estimated Blood Loss 200 Other: Voiding Method Diaper Urinal # Voids 1 - Exam GENERAL DESCRIPTION: Elderly male lying in bed, no distress. No tachypnea or accessory muscle of respiration use. LUNGS: Unlabored breathing. Clear to auscultation anteriorly. No wheeze or crackle. HEART: S1, S2, regular rate and rhythm. No loud murmur ABDOMEN: Soft, no tenderness NEUROLOGICAL: The patient is awake, alert, mood and affect normal. - Labs CBC & Chem 7: 06/11/25 18:11 06/11/25 04:12 Labs: Abnormal Lab Results - Last 24 Hours (Table) 06/11/25 06/11/25 06/11/25 Range/Units 16:37 18:11 20:17 RBC 3.65 L (4.40-5.60) 10*6/uL Hgb 11.0 L (13.0-17.0) g/dL Hct 32.0 L (39.6-50.0) % Plt Count 103 L (140-440) 10*3/uL Immature Gran # 0.08 H (0.00-0.04) 10*3/uL Neutrophils # 9.19 H (1.80-7.70) 10*3/uL Lymphocytes # 0.24 L (0.90-5.00) 10*3/uL Eosinophils # 0.03 L (0.04-0.35) 10*3/uL POC Glucose (mg/dL) 130 H 182 H (70-110) mg/dL 06/12/25 06/12/25 Range/Units 06:03 11:34 RBC (4.40-5.60) 10*6/uL Hgb (13.0-17.0) g/dL Hct (39.6-50.0) % Plt Count (140-440) 10*3/uL Immature Gran # (0.00-0.04) 10*3/uL Neutrophils # (1.80-7.70) 10*3/uL Lymphocytes # (0.90-5.00) 10*3/uL Eosinophils # (0.04-0.35) 10*3/uL POC Glucose (mg/dL) 139 H 180 H (70-110) mg/dL Microbiology - Last 24 Hours (Table) 06/10/25 12:15 Blood Culture - Preliminary Blood 06/08/25 06:55 Blood Culture Gram Stain - Final Blood Blood Culture - Final Pseudomonas aeruginosa Molecular ID Assessment and Plan (1) History of Clostridioides difficile colitis Current Visit: Yes Status: Acute Code(s): Z86.19 - PERSONAL HISTORY OF OTHER INFECTIOUS AND PARASITIC DISEASES SNOMED Code(s): 614351004 (2) Sepsis Current Visit: Yes Status: Acute Code(s): A41.9 - SEPSIS, UNSPECIFIED ORGANISM SNOMED Code(s): 31347920 (3) UTI (urinary tract infection) Current Visit: Yes Status: Acute Code(s): N39.0 - URINARY TRACT INFECTION, SITE NOT SPECIFIED SNOMED Code(s): 26655847 Plan: 1patient was in the hospital with sepsis in this patient due to fever tachycardia elevated white count meeting criteria for SIRS/Sepsis source likely urinary in this patient did have a history of bilateral renal stones requiring cystoscopy and bilateral ureteral stent placement on 06/01/2025 did have urinary symptoms of burning hematuria suprapubic pain as well as significantly positive UA will need to cover for the resistant gram-negative to the likely pathogen. 2-patient did have a positive blood culture with Pseudomonas aeruginosa urine is growing the same pathogen 3patient clinical course complicated by fall with evidence of left hip fracture for which the patient did have left hip hemiarthroplasty on 06/11/2025 4patient did have resolution of the fever the patient white count is normalized, blood culture repeated on 06/10/2025 so far negative 5patient will be treated with cefepime 2 g every 8 hour while inpatient at the bedside question concern answered Dictation was produced using [employer] dictation software. please excuse any grammatical, word or spelling errors. Time with Patient: Less than 30
--- NOTE | 2025-06-12 17:41 | P.PN ---
Subjective This is a pleasant 65 years old male with past medical history of multiple medical problems as below Information were obtained with the help of his . Patient presents because stent placed and kidney stone removed from both sides about a week ago with Dr. Vasquez, Last night he started developing nausea vomiting, he did not eat his dinner. 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 No overt fever at home. Denies chest pain or dyspnea. His dyspnea mainly on the right side and right flank He has been constipated since last Saturday which is usual for him He had fever on admission 102 point stable. Has leukocytosis 26.2 rest of BMP and LFT were unremarkable CT of the abdomen and but there is no obstructive uropathy and there is multi 06/09 Patient is very tired and weak Is seen in bed most of the time No other specific complaint, pain controlled Blood culture came back positive He remains on Ringer lactate 130 on cefepime antibiotic Urology team evaluated the patient, no hydronephrosis or retention requiring intervention however bilateral ureteral stents came back accidentally and they were removed. Will keep monitoring 06/10 Patient seen examined at bedside, he is status post fall 2 days ago in the hospital with fracture of the left humerus and left hip. Patient evaluated by orthopedic team and plan for surgical fixation of his left hip tomorrow. Patient initially wanted to be transferred to [facility] or other hospital but changed his mind and he agrees to stay and do the surgery tomorrow after he talk to the orthopedic team. Patient has a history of cardiac arrest therefore preop cardiac evaluation requested and reviewed. Lisin opril 10 mg twice daily added. Patient at some risk from his surgical procedure but there is no cont raindication He remains on cefepime for Pseudomonas UTI and bacteremia and he is improving. Neurology also following after 2 stents removed. Daughter at bedside and all questions answered to their satisfaction 06/11 Patient awake comfortable Denies pain He has some diarrhea but is improving/to 2 episodes compared to admission No chest pain or dyspnea Patient and at bedside are concerns about surgery and infection. Patient has been followed closely by orthopedic team. Also patient responded to antibiotics for his infection. Urine and blood culture are growing sensitive Pseudomonas. Leukocytosis decreased by more than 50%. Symptoms improved. Infectious disease are planning to repeat blood culture to ensure clearance of the infection 06/12 Feels tired Pain controlled Diarrhea is better from 4 times per day down to 2 times per day currently No chest pain or dyspnea Patient is status post left total hip arthroplasty. Today postop day #1 Patient looks happy and satisfied with the result of his procedure. at bedside and also she is agreeable. Pain controlled no other new complaint. Patient remains on cefepime Also. He was started on aspirin 81 mg twice daily for DVT prophylaxis by orthopedic team. Patient on home was on aspirin and Plavix. Patient and are concerned. I discussed with them to call his gold miner Dr. Grullon at [facility] [place] going to ask him. Also discussed with him the possibility of close follow-up with him in 1 week after discharge and they agreeable. Patient and family agreeable to continue with aspirin twice daily and hold Plavix for now Leukocytosis improving. No labs today. Check labs in the morning Objective - Vital Signs Vital signs: Vital Signs Temp 97.9 F 06/12/25 06:43 Pulse 75 06/12/25 06:43 Resp 18 06/12/25 06:43 BP 143/81 06/12/25 06:43 Pulse Ox 96 06/12/25 06:43 FiO2 Intake & Output 06/11/25 06/12/25 06/12/25 18:59 06:59 18:59 Intake Total 960 Output Total 300 500 Balance 660 -500 Intake: IV 900 Oral 60 Output: Urine 100 500 Straight 500 Estimated Blood Loss 200 Other: Voiding Method Diaper Urinal # Voids 1 - Exam -GENERAL: The patient is alert and oriented x3, not in any acute distress. Well developed, well nourished. Generally weak and lethargic HEENT: Pupils are round and equally reacting to light. EOMI. No scleral icterus. No conjunctival pallor. Normocephalic, atraumatic. No pharyngeal erythema. No thyromegaly. CARDIOVASCULAR: S1 and S2 present. No murmurs, rubs, or gallops. PULMONARY: Chest is clear to auscultation, no wheezing , no crackles. ABDOMEN: Soft, nontender, nondistended, normoactive bowel sounds. No palpable organomegaly. MUSCULOSKELETAL: No joint swelling or deformity. EXTREMITIES: No cyanosis, clubbing, or pedal edema. NEUROLOGICAL: Gross neurological examination did not reveal any focal deficits. SKIN: No rashes. no petechiae. - Labs CBC & Chem 7: 06/11/25 18:11 06/11/25 04:12 Labs: Abnormal Lab Results - Last 24 Hours (Table) 06/11/25 06/11/25 06/11/25 Range/Units 16:37 18:11 20:17 RBC 3.65 L (4.40-5.60) 10*6/uL Hgb 11.0 L (13.0-17.0) g/dL Hct 32.0 L (39.6-50.0) % Plt Count 103 L (140-440) 10*3/uL Immature Gran # 0.08 H (0.00-0.04) 10*3/uL Neutrophils # 9.19 H (1.80-7.70) 10*3/uL Lymphocytes # 0.24 L (0.90-5.00) 10*3/uL Eosinophils # 0.03 L (0.04-0.35) 10*3/uL POC Glucose (mg/dL) 130 H 182 H (70-110) mg/dL 06/12/25 06/12/25 Range/Units 06:03 11:34 RBC (4.40-5.60) 10*6/uL Hgb (13.0-17.0) g/dL Hct (39.6-50.0) % Plt Count (140-440) 10*3/uL Immature Gran # (0.00-0.04) 10*3/uL Neutrophils # (1.80-7.70) 10*3/uL Lymphocytes # (0.90-5.00) 10*3/uL Eosinophils # (0.04-0.35) 10*3/uL POC Glucose (mg/dL) 139 H 180 H (70-110) mg/dL Microbiology - Last 24 Hours (Table) 06/10/25 12:15 Blood Culture - Preliminary Blood 06/08/25 06:55 Blood Culture Gram Stain - Final Blood Blood Culture - Final Pseudomonas aeruginosa Molecular ID Assessment and Plan Assessment: Sepsis with leukocytosis and fever urinary tract infection Acute left femoral neck fracture s/p left hip hemiarthroplasty on 06/11 Patient had recent stone removal with stent placement 1 week earlier. Bilateral stents accidentally came out on 06/08 Coronary artery disease, status post CABG and stent Fall in the hospital followed by left humeral and femoral fracture History of stroke and left hemiparesis Diabetes mellitus Hypertension Hyperlipidemia History of osteoarthritis Gastroesophageal reflux disease Benign prostatic hypertrophy Plan: Patient at some risk from surgery but there is no absolute contraindication Continue postop care Continue with Flomax for rehabilitation Continue with aspirin twice daily per orthopedic team. Hold Plavix. Check with gold miner as an outpatient Repeat blood culture ordered by our infectious disease team Continue with cefepime Continue with IV fluid Infectious disease team consult Urology team consult, no need for intervention for now Labs and medication were reviewed.. Continue same treatment. Continue with symptomatic treatment. Resume home medication. Monitor lytes and vitals. DVT and GI prophylaxis. Further recommendations depends on the clinical course of the patient DVT prophylaxis: Subcutaneous heparin GI Prophylaxis: Pepcid PT/OT: Pending Prognosis is guarded
[2025-06-12 21:14] LABS: Glucose,Whole Blood 203 mg/dL (70-110)
[2025-06-12] MEDS: ASPIRIN 81 MG PO SCH (21:21)
[2025-06-13 06:09] LABS: Glucose,Whole Blood 140 mg/dL (70-110)
[2025-06-13] MEDS: TAMSULOSIN 0.4 MG CAP.ER.24H PO SCH (08:20)
--- NOTE | 2025-06-13 08:38 | P.PN ---
Subjective Progress Note Date: 06/13/25 The patient was seen this morning at bedside. Overall he is doing well. His hip pain is improved from before surgery but he is having some thigh discomfort. He has been up to sit on the side of the bed. He otherwise has no complaints. Objective - Vital Signs Vital signs: Vital Signs Temp 98 F 06/13/25 06:55 Pulse 69 06/13/25 06:55 Resp 16 06/13/25 06:55 BP 151/82 06/13/25 06:55 Pulse Ox 98 06/13/25 06:55 FiO2 Intake & Output 06/12/25 06/13/25 06/13/25 18:59 06:59 18:59 Output Total 400 675 Balance -400 -675 Output: Urine 400 675 Straight 400 Other: Voiding Method Urinal Urinal # Voids 2 - Exam The patient is resting comfortably in bed. He is alert and able to answer questions but pleasantly confused to person. A focused examination of the left lower extremity was conducted. On inspection there is an intact incisional wound VAC with good seal. Femoral nerve function is intact. He does have some movement in his toes which is his baseline given his stroke and history of hemiplegia. - Labs CBC & Chem 7: 06/11/25 18:11 06/11/25 04:12 Labs: Abnormal Lab Results - Last 24 Hours (Table) 06/12/25 06/12/25 06/12/25 Range/Units 11:34 12:07 21:09 POC Glucose (mg/dL) 180 H 203 H (70-110) mg/dL Vitamin D 25-Hydroxy 17.8 L (30.0-100.0) ng/mL 06/13/25 Range/Units 05:59 POC Glucose (mg/dL) 140 H (70-110) mg/dL Vitamin D 25-Hydroxy (30.0-100.0) ng/mL Microbiology - Last 24 Hours (Table) 06/10/25 12:15 Blood Culture - Preliminary Blood Assessment and Plan Assessment: Postoperative day #2 status post left direct anterior hip hemiarthroplasty for displaced subcapital femoral neck fracture Status post fall in the emergency room Acute left hip femoral neck fracture due to fall Acute left proximal humerus fracture due to fall Sepsis with urinary tract infection status post lithotripsy approximately 1 week left-sided hemiplegia due to cerebrovascular accident from December 2023 Nonambulator due to left lower extremity profound weakness and unable to use his left upper extremity purposefully History of severe coronary artery disease with multiple stents and history of cardiac arrest Plan: 1. Weight-bear as tolerated left lower extremity with assistance and a walker, attempt to mobilize out of bed as able 2. Leave incisional wound VAC in place 3. 2 doses postoperative Ancef for surgical prophylaxis followed by antibiotics ordered by infectious disease for his urinary tract infection and positive blood cultures 4. DVT prophylaxis -I will ultimately defer to internal medicine on when to resume Plavix. There is no absolute surgical contraindication to restarting Plavix today, but my preference would be to use aspirin 81 mg twice daily for 1 week and then resume Plavix. If internal medicine thinks that medically he would benefit from resuming Plavix earlier than 1 week he can restart. 5. The patient had exceedingly poor bone quality during surgery consistent with his history of stroke and hemiaplasia. 6. Discharge planning in progress
[2025-06-13] MEDS: DRONABINOL 5 MG PO SCH (09:44)
--- NOTE | 2025-06-13 15:56 | P.PN ---
Subjective Progress Note Date: 06/13/25 Principal diagnosis: Reason for follow-up is sepsis/UTI/bacteremia Patient is a 65-year-old male with a past medical history significant for Coronary Artery Disease (CAD), Chest Pain / Angina, CVA/TIA, Diabetes Mellitus, GERD/Reflux, Hyperlipidemia, Hypertension, Myocardial Infarction ([place]), Osteoarthritis (OA), Prostate Disorder, recently on 06/01/2025 he did have a lesly ateral renal stent placement for multiple renal calculi with subsequent admission to hospital with sepsis secondary to urinary source and did have a positive blood culture with Pseudomonas. Patient is status post Left direct anterior hip hemiarthroplasty for displaced left subcapital femoral neck fr acture completed on 06/11/2025. On today's evaluation that is 06/13/2025, Patient is afebrile patient is currently on 2 L nasal oxygen and denies having any shortness of breath, the patient denies any chest pain or cough, the patient denies any nausea vomiting did not have any abdominal pain and no diarrhea. No new lab has been obtained today blood culture repeat has been negative Objective - Vital Signs Vital signs: Vital Signs Temp 98 F 06/13/25 06:55 Pulse 69 06/13/25 06:55 Resp 16 06/13/25 06:55 BP 151/82 06/13/25 06:55 Pulse Ox 98 06/13/25 06:55 FiO2 Intake & Output 06/12/25 06/13/25 06/13/25 18:59 06:59 18:59 Output Total 400 675 Balance -400 -675 Output: Urine 400 675 Straight 400 Other: Voiding Method Urinal Urinal Urinal # Voids 2 - Exam GENERAL DESCRIPTION: Elderly male lying in bed, no distress. No tachypnea or accessory muscle of respiration use. LUNGS: Unlabored breathing. Clear to auscultation anteriorly. No wheeze or crackle. HEART: S1, S2, regular rate and rhythm. No loud murmur ABDOMEN: Soft, no tenderness NEUROLOGICAL: The patient is awake, alert, mood and affect normal. - Labs CBC & Chem 7: 06/11/25 18:11 06/11/25 04:12 Labs: Abnormal Lab Results - Last 24 Hours (Table) 06/12/25 06/12/25 06/13/25 Range/Units 12:07 21:09 05:59 POC Glucose (mg/dL) 203 H 140 H (70-110) mg/dL Vitamin D 25-Hydroxy 17.8 L (30.0-100.0) ng/mL Microbiology - Last 24 Hours (Table) 06/10/25 12:15 Blood Culture - Preliminary Blood Assessment and Plan (1) History of Clostridioides difficile colitis Current Visit: Yes Status: Acute Code(s): Z86.19 - PERSONAL HISTORY OF OTHER INFECTIOUS AND PARASITIC DISEASES SNOMED Code(s): 340795350 (2) Sepsis Current Visit: Yes Status: Acute Code(s): A41.9 - SEPSIS, UNSPECIFIED ORGANISM SNOMED Code(s): 23514587 (3) UTI (urinary tract infection) Current Visit: Yes Status: Acute Code(s): N39.0 - URINARY TRACT INFECTION, SITE NOT SPECIFIED SNOMED Code(s): 49700743 Plan: 1patient was in the hospital with sepsis in this patient due to fever tachycardia elevated white count meeting criteria for SIRS/Sepsis source likely urinary in this patient did have a history of bilateral renal stones requiring cystoscopy and bilateral ureteral stent placement on 06/01/2025 did have urinary symptoms of burning hematuria suprapubic pain as well as significantly positive UA will need to cover for the resistant gram-negative to the likely pathogen. 2-patient did have a positive blood culture with Pseudomonas aeruginosa urine is growing the same pathogen 3patient clinical course complicated by fall with evidence of left hip fracture for which the patient did have left hip hemiarthroplasty on 06/11/2025 4patient did have resolution of the fever the patient white count is normalized, blood culture repeated on 06/10/2025 so far negative 5patient did have improvement with cefepime to continue total duration about should be 2 weeks which can be IV if going to the rehab, family the bedside multiple questions answered Dictation was produced using [employer] dictation software. please excuse any grammatical, word or spelling errors. Time with Patient: Less than 30
[2025-06-13 17:46] LABS: Basophils # (A) 0.08 10*3/uL (0.00-0.10); Basophils % (A) 0.8 %; Eosinophils # (A) 0.38 10*3/uL (0.04-0.35); Eosinophils % (A) 4.0 %; HCT 30.2 % (39.6-50.0); HGB 11.1 g/dL (13.0-17.0); Lymphocytes # (A) 1.19 10*3/uL (0.90-5.00); Lymphocytes % (A) 12.6 %; MCH 30.6 pg (27.0-32.0); MCHC 36.8 g/dL (32.0-37.0); MCV 83.2 fL (80.0-97.0); Monocytes # (A) 0.91 10*3/uL (0.20-1.00); Monocytes % (A) 9.6 %; Neutrophils # (A) 6.46 10*3/uL (1.80-7.70); Neutrophils % (A) 68.6 %; RBC 3.63 10*6/uL (4.40-5.60); RDW 13.5 % (11.5-14.5); WBC 9.44 10*3/uL (4.50-10.00)
[2025-06-13 18:07] LABS: Platelet Count 155 10*3/uL (140-440)
[2025-06-13] MEDS: amLODIPine 5 MG TAB PO SCH (22:51)
--- NOTE | 2025-06-14 07:59 | P.PN ---
Subjective Progress Note Date: 06/14/25 The patient was seen this morning at bedside. Overall he is doing well. His hip pain is improved from before surgery but he is having some thigh discomfort. He has been up to sit on the side of the bed. He otherwise has no complaints. Objective - Vital Signs Vital signs: Vital Signs Temp 98.3 F 06/14/25 07:03 Pulse 75 06/14/25 07:03 Resp 17 06/14/25 07:03 BP 168/96 06/14/25 07:03 Pulse Ox 95 06/14/25 07:03 FiO2 Intake & Output 06/13/25 06/14/25 06/14/25 18:59 06:59 18:59 Output Total 500 100 Balance -500 -100 Output: Urine 500 100 Other: Voiding Method Urinal Urinal # Voids 2 1 1 - Exam The patient is resting comfortably in bed. He is alert and able to answer questions but pleasantly confused to person. A focused examination of the left lower extremity was conducted. On inspection there is an intact incisional wound VAC with good seal. Femoral nerve function is intact. He does have some movement in his toes which is his baseline given his stroke and history of hemiplegia. - Labs CBC & Chem 7: 06/13/25 17:24 06/11/25 04:12 Labs: Abnormal Lab Results - Last 24 Hours (Table) 06/13/25 Range/Units 17:24 RBC 3.63 L (4.40-5.60) 10*6/uL Hgb 11.1 L (13.0-17.0) g/dL Hct 30.2 L (39.6-50.0) % Immature Gran # 0.42 H (0.00-0.04) 10*3/uL Eosinophils # 0.38 H (0.04-0.35) 10*3/uL Microbiology - Last 24 Hours (Table) 06/10/25 12:15 Blood Culture - Preliminary Blood Assessment and Plan Assessment: Postop day #3 06/11/2025 status post left direct anterior hip hemiarthroplasty for displaced subcapital femoral neck fracture Status post fall in the emergency room Acute left hip femoral neck fracture due to fall Acute left proximal humerus fracture due to fall Sepsis with urinary tract infection status post lithotripsy approximately 1 week left-sided hemiplegia due to cerebrovascular accident from December 2023 Nonambulator due to left lower extremity profound weakness and unable to use his left upper extremity purposefully History of severe coronary artery disease with multiple stents and history of cardiac arrest Plan: 1. Weight-bear as tolerated left lower extremity with assistance and a walker, attempt to mobilize out of bed as able 2. Leave incisional wound VAC in place 3. 2 doses postoperative Ancef for surgical prophylaxis followed by antibiotics ordered by infectious disease for his urinary tract infection and positive blood cultures 4. DVT prophylaxis -I will ultimately defer to internal medicine on when to resume Plavix. There is no absolute surgical contraindication to restarting Plavix today, but my preference would be to use aspirin 81 mg twice daily for 1 week and then resume Plavix. If internal medicine thinks that medically he would benefit from resuming Plavix earlier than 1 week he can restart. 5. The patient had exceedingly poor bone quality during surgery consistent with his history of stroke and hemiaplasia. 6. Discharge planning in progress. Asked for physical therapy to work with him today.
[2025-06-14 11:24] LABS: African American GFR (CKD) 90 (>60 ml/min/1.73 sqM); Anion Gap 5 mmol/L; Blood Urea Nitrogen 14 mg/dL (9-20); Calcium 7.9 mg/dL (8.4-10.2); Carbon Dioxide 25 mmol/L (22-30); Chloride 106 mmol/L (98-107); Glucose 140 mg/dL (74-99); Non-African American GFR(CKD) 78 (>60 ml/min/1.73 sqM); Potassium 3.3 mmol/L (3.5-5.1); Sodium 136 mmol/L (137-145)
--- NOTE | 2025-06-14 12:20 | P.PN ---
Subjective This is a pleasant 65 years old male with past medical history of multiple medical problems as below Information were obtained with the help of his . Patient presents because stent placed and kidney stone removed from both sides about a week ago with Dr. Vasquez, Last night he started developing nausea vomiting, he did not eat his dinner. 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 No overt fever at home. Denies chest pain or dyspnea. His dyspnea mainly on the right side and right flank He has been constipated since last Saturday which is usual for him He had fever on admission 102 point stable. Has leukocytosis 26.2 rest of BMP and LFT were unremarkable CT of the abdomen and but there is no obstructive uropathy and there is multi 06/09 Patient is very tired and weak Is seen in bed most of the time No other specific complaint, pain controlled Blood culture came back positive He remains on Ringer lactate 130 on cefepime antibiotic Urology team evaluated the patient, no hydronephrosis or retention requiring intervention however bilateral ureteral stents came back accidentally and they were removed. Will keep monitoring 06/10 Patient seen examined at bedside, he is status post fall 2 days ago in the hospital with fracture of the left humerus and left hip. Patient evaluated by orthopedic team and plan for surgical fixation of his left hip tomorrow. Patient initially wanted to be transferred to [facility] or other hospital but changed his mind and he agrees to stay and do the surgery tomorrow after he talk to the orthopedic team. Patient has a history of cardiac arrest therefore preop cardiac evaluation requested and reviewed. Lisin opril 10 mg twice daily added. Patient at some risk from his surgical procedure but there is no cont raindication He remains on cefepime for Pseudomonas UTI and bacteremia and he is improving. Neurology also following after 2 stents removed. Daughter at bedside and all questions answered to their satisfaction 06/11 Patient awake comfortable Denies pain He has some diarrhea but is improving/to 2 episodes compared to admission No chest pain or dyspnea Patient and at bedside are concerns about surgery and infection. Patient has been followed closely by orthopedic team. Also patient responded to antibiotics for his infection. Urine and blood culture are growing sensitive Pseudomonas. Leukocytosis decreased by more than 50%. Symptoms improved. Infectious disease are planning to repeat blood culture to ensure clearance of the infection 06/12 Feels tired Pain controlled Diarrhea is better from 4 times per day down to 2 times per day currently No chest pain or dyspnea Patient is status post left total hip arthroplasty. Today postop day #1 Patient looks happy and satisfied with the result of his procedure. at bedside and also she is agreeable. Pain controlled no other new complaint. Patient remains on cefepime Also. He was started on aspirin 81 mg twice daily for DVT prophylaxis by orthopedic team. Patient on home was on aspirin and Plavix. Patient and are concerned. I discussed with them to call his planetarium technician Dr. Grullon at [facility] [place] going to ask him. Also discussed with him the possibility of close follow-up with him in 1 week after discharge and they agreeable. Patient and family agreeable to continue with aspirin twice daily and hold Plavix for now Leukocytosis improving. No labs today. Check labs in the morning 06/13 Patient pain is controlled Left arm in sling Diet diarrhea stopped since surgery Patient encouraged to eat more Still getting IV fluid. Discontinue IV fluid as blood pressure is stable Objective - Vital Signs Vital signs: Vital Signs Temp 98 F 06/13/25 06:55 Pulse 69 06/13/25 06:55 Resp 16 06/13/25 06:55 BP 151/82 06/13/25 06:55 Pulse Ox 98 06/13/25 06:55 FiO2 Intake & Output 06/12/25 06/13/25 06/13/25 18:59 06:59 18:59 Output Total 400 675 Balance -400 -675 Output: Urine 400 675 Straight 400 Other: Voiding Method Urinal Urinal Urinal # Voids 2 - Exam -GENERAL: The patient is alert and oriented x3, not in any acute distress. Well developed, well nourished. Generally weak and lethargic HEENT: Pupils are round and equally reacting to light. EOMI. No scleral icterus. No conjunctival pallor. Normocephalic, atraumatic. No pharyngeal erythema. No thyromegaly. CARDIOVASCULAR: S1 and S2 present. No murmurs, rubs, or gallops. PULMONARY: Chest is clear to auscultation, no wheezing , no crackles. ABDOMEN: Soft, nontender, nondistended, normoactive bowel sounds. No palpable organomegaly. MUSCULOSKELETAL: No joint swelling or deformity. EXTREMITIES: No cyanosis, clubbing, or pedal edema. NEUROLOGICAL: Gross neurological examination did not reveal any focal deficits. SKIN: No rashes. no petechiae. - Labs CBC & Chem 7: 06/13/25 17:24 06/14/25 10:39 Labs: Abnormal Lab Results - Last 24 Hours (Table) 06/12/25 06/12/25 06/13/25 Range/Units 12:07 21:09 05:59 POC Glucose (mg/dL) 203 H 140 H (70-110) mg/dL Vitamin D 25-Hydroxy 17.8 L (30.0-100.0) ng/mL Microbiology - Last 24 Hours (Table) 06/10/25 12:15 Blood Culture - Preliminary Blood Assessment and Plan Assessment: Sepsis with leukocytosis and fever urinary tract infection Acute left femoral neck fracture s/p left hip hemiarthroplasty on 06/11 Patient had recent stone removal with stent placement 1 week earlier. Bilateral stents accidentally came out on 06/08 Coronary artery disease, status post CABG and stent Fall in the hospital followed by left humeral and femoral fracture History of stroke and left hemiparesis Diabetes mellitus Hypertension Hyperlipidemia History of osteoarthritis Gastroesophageal reflux disease Benign prostatic hypertrophy Plan: Continue postop care Continue with Flomax for rehabilitation Continue with aspirin twice daily per orthopedic team. Hold Plavix. Check with planetarium technician as an outpatient Repeat blood culture ordered by our infectious disease team Continue with cefepime Discontinue IV fluid Infectious disease team consult Urology team consult, no need for intervention for now Labs and medication were reviewed.. Continue same treatment. Continue with symptomatic treatment. Resume home medication. Monitor lytes and vitals. DVT and GI prophylaxis. Further recommendations depends on the clinical course of the patient DVT prophylaxis: Subcutaneous heparin GI Prophylaxis: Pepcid PT/OT: Pending Prognosis is guarded
[2025-06-14] MEDS: HYDROcodone/APAP 10-325MG 1 EACH TAB PO PRN (14:05)
--- NOTE | 2025-06-15 07:35 | P.PN ---
Subjective Progress Note Date: 06/15/25 This is a pleasant 65 year old male who comes in to the ER with vomiting, fever, chills. Had recent ureteral stents placed and kidney stone removal recently. He was found to have pseudomonas UTI and bacteremia and is currently maintained on IV cefepime and awaiting repeat blood cultures for clearance of bacteremia. Urology following and on 06/08 the bilateral ureteral stents have come out accidently. He is doing well and urinating without difficulty currently. Patient fell while in the ER and is now postoperative day #3 left direct anterior hip hemiarthroplasty for displaced subcapital femoral neck fracture. He is currently rating his pain 4-5/10 states that it is managed. Family stated the narcotics made him confused and recommending to continue current pain regimen for now. States his last BM was in the ER. His bowels are soft and normoactive bowel sounds. He is currently on combination of senekot, MOM, colace. He is pending evaluation for inpatient rehab. Labs today reveal white blood cell count 9.44, hgb 11.1, sodium 136, potassium 3.3. Review of Systems Constitutional: Denied any fatigue denied any fever. Cardio vascular: denied any chest pain, palpitations Gastrointestinal: denied any nausea, vomiting, diarrhea Pulmonary: Denied any shortness of breath cough Neurologic denied any new focal deficits All inpatient medications were reviewed and appropriate changes in these medi cations as dictated in the interval history and assessment and plan. PHYSICAL EXAMINATION: GENERAL: The patient is alert and oriented x3, not in any acute distress. Well developed, well nourished. HEENT: Pupils are round and equally reacting to light. EOMI. No scleral icterus. No conjunctival pallor. Normocephalic, atraumatic. No pharyngeal erythema. No thyromegaly. CARDIOVASCULAR: S1 and S2 present. No murmurs, rubs, or gallops. PULMONARY: Chest is clear to auscultation, no wheezing or crackles. ABDOMEN: Soft, nontender, nondistended, normoactive bowel sounds. No palpable organomegaly. MUSCULOSKELETAL: No joint swelling or deformity. EXTREMITIES: No cyanosis, clubbing, or pedal edema. NEUROLOGICAL: Gross neurological examination did not reveal any focal deficits. SKIN: No rashes. Assessment Sepsis with leukocytosis and fever urinary tract infection with pseudomonas Pseudomonas bacteremia Acute left femoral neck fracture s/p left hip hemiarthroplasty on 06/11 Patient had recent stone removal with stent placement 1 week earlier. Bilateral stents accidentally came out on 06/08 Coronary artery disease, status post CABG and stent Fall in the hospital followed by left humeral and femoral fracture History of stroke and left hemiparesis Diabetes mellitus Hypertension Hyperlipidemia History of osteoarthritis Gastroesophageal reflux disease Benign prostatic hypertrophy GI prophylaxis DVT prophylaxis Full Code Plan Continue IV cefepime and await repeat blood cultures ID following IV fluids have been discontinued Encourage increased activity level although patient is a 2 person assist with left sided weakness and foot drop from prior stroke He will be evaluated by inpatient rehab Continue bowel regimen while using narcotics for pain and miralax daily has been added. Repeat BMP/CBC in AM The impression and plan of care has been dictated by Mansi Granger Nurse Practitioner as directed. Dr. Flako MD I have performed a history and physical examination and medical decision making of this patient, discussed the same with the dictator, and agree with the dictators assessment and plan as written, documented as a scribe. Based on total visit time, I have performed more than 50% of this visit. Objective - Vital Signs Vital signs: Vital Signs Temp 98.3 F 06/14/25 07:03 Pulse 75 06/14/25 07:03 Resp 17 06/14/25 07:03 BP 168/96 06/14/25 07:03 Pulse Ox 95 06/14/25 09:33 FiO2 Intake & Output 06/13/25 06/14/25 06/14/25 18:59 06:59 18:59 Output Total 500 100 Balance -500 -100 Output: Urine 500 100 Other: Voiding Method Urinal Urinal # Voids 2 1 1 - Labs CBC & Chem 7: 06/13/25 17:24 06/14/25 10:39 Labs: Abnormal Lab Results - Last 24 Hours (Table) 06/13/25 Range/Units 17:24 RBC 3.63 L (4.40-5.60) 10*6/uL Hgb 11.1 L (13.0-17.0) g/dL Hct 30.2 L (39.6-50.0) % Immature Gran # 0.42 H (0.00-0.04) 10*3/uL Eosinophils # 0.38 H (0.04-0.35) 10*3/uL Microbiology - Last 24 Hours (Table) 06/10/25 12:15 Blood Culture - Preliminary Blood Assessment and Plan Time with Patient: Less than 30
[2025-06-15 08:19] LABS: Basophils # (A) 0.06 X 10*3/uL (0.00-0.10); Basophils % (A) 0.8 %; Eosinophils # (A) 0.47 X 10*3/uL (0.04-0.35); Eosinophils % (A) 6.2 %; HCT 29.2 % (39.6-50.0); HGB 9.7 g/dL (13.0-17.0); Immature Grans, Automated 5.00 %; Lymphocytes # (A) 1.12 X 10*3/uL (0.90-5.00); Lymphocytes % (A) 14.8 %; MCH 29.4 pg (27.0-32.0); MCHC 33.2 g/dL (32.0-37.0); MCV 88.5 FL (80.0-97.0); Monocytes # (A) 0.53 X 10*3/uL (0.20-1.00); Monocytes % (A) 7.0 %; NRBC Per 100 WBC 0 X 10*3/uL (0.00-0.01); Neutrophils # (A) 5.01 X 10*3/uL (1.80-7.70); Neutrophils % (A) 66.2 %; Platelet Count 191 X 10*3/uL (140-440); RBC 3.30 X 10*6/uL (4.40-5.60); RDW 13.8 % (11.5-14.5); WBC 7.57 X 10*3/uL (4.50-10.00)
[2025-06-15 08:22] LABS: Anion Gap 8.50 mmol/L (4.00-12.00); BUN/Creat Ratio 11.60 Ratio (12.00-20.00); Blood Urea Nitrogen 11.6 mg/dL (9.0-27.0); Calcium 7.7 mg/dL (8.7-10.3); Carbon Dioxide 25.5 mmol/L (21.6-31.8); Chloride 103 mmol/L (96-109); Glucose 126 mg/dL (70-110); Potassium 3.3 mmol/L (3.5-5.5); Sodium 137 mmol/L (135-145)
--- NOTE | 2025-06-15 11:16 | P.PN ---
Subjective Progress Note Date: 06/14/25 No acute overnight event, denies any gross hematuria dysuria. Denies any flank pain Objective - Vital Signs Vital signs: Vital Signs Temp 98.3 F 06/15/25 07:26 Pulse 68 06/15/25 07:26 Resp 19 06/15/25 07:26 BP 144/82 06/15/25 07:26 Pulse Ox 92 L 06/15/25 07:26 FiO2 Intake & Output 06/14/25 06/15/25 06/15/25 18:59 06:59 18:59 Output Total 375 300 Balance -375 -300 Output: Urine 375 300 Other: Voiding Method Urinal # Voids 1 - Labs CBC & Chem 7: 06/15/25 02:59 06/15/25 02:59 Labs: Abnormal Lab Results - Last 24 Hours (Table) 06/14/25 06/15/25 06/15/25 Range/Units 10:39 02:59 02:59 RBC 3.30 L (4.40-5.60) X 10*6/uL Hgb 9.7 L (13.0-17.0) g/dL Hct 29.2 L (39.6-50.0) % Immature Gran # 0.38 H (0.00-0.04) X 10*3/uL Eosinophils # 0.47 H (0.04-0.35) X 10*3/uL Sodium 136 L (137-145) mmol/L Potassium 3.3 L 3.3 L (3.5-5.1) mmol/L BUN/Creatinine Ratio 11.60 L (12.00-20.00) Ratio Glucose 140 H 126 H (74-99) mg/dL Calcium 7.9 L 7.7 L (8.4-10.2) mg/dL Assessment and Plan Assessment: 65-year-old male admitted to the hospital with sepsis secondary to UTI. Stents have been removed during his hospital stay. At this time he is not having any flank pain or any voiding issues. From urology standpoint he can be discharged home when deemed appropriate by the primary team. He can follow-up with our office on a as needed basis
[2025-06-15] MEDS: POTASSIUM CHLORIDE ER 20 MEQ TAB.ER PO SCH (11:43)
[2025-06-15 12:48] VITALS: BMI 25.1
--- NOTE | 2025-06-15 13:15 | P.CONS ---
History of Present Illness - Reason for Consult Consult date: 06/15/25 Rehab recommendations - History of Present Illness Gerald is a 65 year old, male, who lives with in a 3 story home, with ramp entry. Prior to admission, pt was ambulating with assist and an assistive device. Pt needed assistance for basic/advanced ADLs. Transportation by: . Support system: Has children, but do not live nearby. Patient presented to [facility] ED on 06/08/25. He initially presented for weakness, nausea/vomiting and a fever. Reported he had a stent placement and kidney stone removal approximately one week ago. On admission, he had fever of 102 and leukocytosis 26.2. He was also found to have positive blood cultures, started on antibiotics per ID. Per records, urology team evaluated the patient, no hydronephrosis or retention requiring intervention however bilateral ureteral stents came back accidentally and they were removed. While in the ER, he had a fall with subsequent fracture of the left humerus and left hip. Patient evaluated by orthopedic team and had surgical fixation of his left hip on 06/11/25. Therapy evaluations reviewed, patient needing: BM maxA, transfers modA, gait 15 feet with hemiwalker modA; bathing totalA, LB dress total A 06/15: Patient seen and examined resting in bed, at BS. Discussed therapy options with and patient, both feel that he would be unable to tolerate 3 hours of therapy at this time. Review of Systems as above in subjective. Past Medical History Past Medical History: Coronary Artery Disease (CAD), Chest Pain / Angina, CVA/TIA, Diabetes Mellitus, GERD/Reflux, Hyperlipidemia, Hypertension, Myocardial Infarction ([place]), Osteoarthritis (OA), Prostate Disorder Additional Past Medical History / Comment(s): Left-sided hemiaplasia due to cerebrovascular vascular December 2023. History of cardiac arrest. Multiple c ardiac stents hx RENAL CALCULI. HEMOROIDS. stroke 12/2023 loss of appetite. 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 loss of filter at times. diet controlled diabetes - decreased appetite. left leg swelling. incontinent wears depends Last Myocardial Infarction Date:: 2002,2016.2017.2020 History of Any Multi-Drug Resistant Organisms: C-DIFF Year Discovered:: 12/2023 MDRO Source:: stool Past Surgical History: Cholecystectomy, Coronary Bypass/CABG, Heart Catheterization With Stent, Prostate Surgery Additional Past Surgical History / Comment(s): TURP x2. LITHOTRIPSY. 9 stents. colonoscopy, eye surgery as a child. Past Anesthesia/Blood Transfusion Reactions: No Reported Reaction Date of Last Stent Placement:: 2020 Past Psychological History: Depression Smoking Status: Never smoker Past Alcohol Use History: None Reported Past Drug Use History: Marijuana Additional Drug Use History / Comment(s): takes dronabinol for appetite improvement, aware not to take 24 hrs before procedure - Past Family History Father Additional Family Medical History / Comment(s): brain tumor, Mother Family Medical History: Coronary Artery Disease (CAD), Deep Vein Thrombosis (DVT) Additional Family Medical History / Comment(s): cabg Sister(s) Family Medical History: Coronary Artery Disease (CAD), Renal Disease Medications and Allergies Home Medications Medication Instructions Recorded Confirmed Type Aspirin [Adult Low Dose Aspirin EC] 81 mg PO DAILY 06/17/20 06/08/25 History Atorvastatin [Lipitor] 80 mg PO HS 06/17/20 06/08/25 History Calcium Carbonate [Tums] 500 - 1,000 mg PO DAILY PRN 06/17/20 06/08/25 History Clopidogrel [Plavix] 75 mg PO DAILY 06/17/20 06/08/25 History Tamsulosin [Flomax] 0.4 mg PO DAILY #10 cap 04/21/24 06/08/25 Rx Acetaminophen [Tylenol] 325 mg PO Q6H PRN 05/28/25 06/08/25 History Baclofen 10 mg PO BID 05/28/25 06/08/25 History Docusate [Colace] 100 mg PO BID 05/28/25 06/08/25 History FLUoxetine HCL [Fluoxetine HCl] 40 mg PO DAILY 05/28/25 06/08/25 History Famotidine 20 mg PO DAILY 05/28/25 06/08/25 History Gabapentin 300 mg PO HS 05/28/25 06/08/25 History Isosorbide Mononitrate ER [Imdur] 30 mg PO DAILY 05/28/25 06/08/25 History Metoprolol Succinate (ER) [Toprol 12.5 mg PO DAILY 05/28/25 06/08/25 History Xl] Nitroglycerin 0.4 mg SL Q5M PRN 05/28/25 06/08/25 History droNABinol 5 mg PO DAILY 05/28/25 06/08/25 History traZODone HCL [Desyrel] 50 mg PO HS 05/28/25 06/08/25 History traMADol HCl [Ultram] 50 mg PO Q6HR PRN 3 Days #12 tab 06/01/25 06/08/25 Rx ramipriL 10 mg PO DAILY 06/08/25 06/08/25 History Allergies Allergy/AdvReac Type Severity Reaction Status Date / Time No Known Allergies Allergy Verified 06/08/25 10:53 Physical Exam Vitals: Vital Signs Temp Pulse Resp BP Pulse Ox 06/15/25 07:26 98.3 F 68 19 144/82 92 L 06/15/25 01:25 98 F 84 18 162/81 95 06/14/25 20:00 84 06/14/25 19:32 98.0 F 55 L 18 148/78 97 06/14/25 14:06 99.1 F 82 19 138/77 94 L Intake and Output 06/14/25 06/15/25 06/15/25 22:59 06:59 14:59 Output Total 300 Balance -300 Output: Urine 300 Other: Voiding Method Urinal # Voids 2 Weight 77.111 kg General: Well-developed, well-nourished, male, in no acute distress, at BS HEENT: NC/AT, external ears intact, hearing intact to conversational speech Cardiovascular: + BLLE edema, no cardiac distress; SCDs in place Respiratory: Even and unlabored breathing on RA Abdomen: Soft, nontender, nondistended Musculoskeletal: ROM WFL EXCEPT: left-sided hemiparesis, RAYSHAWN LUE and LLE; LUE in sling Neurological: Alert and oriented x 4 CN II-XII: facial droop, left hemiparesis Speech is dysarthric MMT: Unable to assess LUE and LLE RUE and RLE 4/5 Skin: Skin intact where visible to head, neck, and bilateral upper and lower extremities EXCEPT: IV, wound vac to left hip Psychiatric: Mood calm, affect appropriate, cooperative Results CBC & Chem 7: 06/15/25 02:59 06/15/25 02:59 Labs: Abnormal Lab Results - Last 24 Hours (Table) 06/15/25 06/15/25 Range/Units 02:59 02:59 RBC 3.30 L (4.40-5.60) X 10*6/uL Hgb 9.7 L (13.0-17.0) g/dL Hct 29.2 L (39.6-50.0) % Immature Gran # 0.38 H (0.00-0.04) X 10*3/uL Eosinophils # 0.47 H (0.04-0.35) X 10*3/uL Potassium 3.3 L (3.5-5.5) mmol/L BUN/Creatinine Ratio 11.60 L (12.00-20.00) Ratio Glucose 126 H (70-110) mg/dL Calcium 7.7 L (8.7-10.3) mg/dL Assessment and Plan Assessment: # Impaired gait and ADLs 2 Acute left hip femoral neck fracture and left proximal humerus fracture 2 fall in emergency room S/P left direct anterior hip hemiarthroplasty for displaced subcapital femoral neck fracture 06/11/25 -Comprehensive therapies -Has incisional wound VAC; Weight-bear as tolerated left lower extremity with assistance and a walker, attempt to mobilize out of bed as able; reports NWB LUE #Sepsis with urinary tract infection status post lithotripsy/stents -antibiotics per JAN; + blood culture -ID following #left-sided hemiplegia due to cerebrovascular accident from December 2023 #Nonambulator due to left lower extremity profound weakness and unable to use his left upper extremity purposefully #History of severe coronary artery disease with multiple stents and history of cardiac arrest # Bowel/ Bladder: Nursing to monitor and report concerns if any. # Diet-per EMR # Skin/wound: Skin/Wound care to follow as needed -has wound vac # Pain Management -reports pain is controlled # DVT Prophylaxis: -defer to IM management # Your medical dx and mgt Goals: Modified Independent mobility and ADLS both basic and advanced; increased functional mobility/strength; increased balance, safety, endurance. Improvement in medical issues through your care. Barriers: fall risk, weakness, left hemiparesis, WB status Discharge recommendation: Patient is performing below baseline level of function. Patient is more appropriate for a slower paced rehab program such as [facility] for continued rehab. Patient seen and examined in collaboration with Dr. Miranda Thank you for this consultation.
[2025-06-15] MEDS: METOPROLOL SUCCINATE (ER) 25 MG TAB.ER.24H PO SCH (15:05)
[2025-06-15] MEDS: CLOPIDOGREL 75 MG TAB PO SCH (15:05)
--- NOTE | 2025-06-15 15:44 | P.PN ---
Subjective Progress Note Date: 06/14/25 Principal diagnosis: Reason for follow-up is sepsis/UTI/bacteremia Patient is a 65-year-old male with a past medical history significant for Coronary Artery Disease (CAD), Chest Pain / Angina, CVA/TIA, Diabetes Mellitus, GERD/Reflux, Hyperlipidemia, Hypertension, Myocardial Infarction ([place]), Osteoarthritis (OA), Prostate Disorder, recently on 06/01/2025 he did have a lesly ateral renal stent placement for multiple renal calculi with subsequent admission to hospital with sepsis secondary to urinary source and did have a positive blood culture with Pseudomonas. Patient is status post Left direct anterior hip hemiarthroplasty for displaced left subcapital femoral neck fr acture completed on 06/11/2025. On today's evaluation that is 06/14/2025, patient has been afebrile, patient is breathing comfortably and is currently on room air, per the daughter the patient seem to have some mild general down and is sleepy no vomiting or diarrhea was reported Patient did have a creatinine 1.0 no CBC was done today Objective - Vital Signs Vital signs: Vital Signs Temp 99.1 F 06/14/25 14:06 Pulse 82 06/14/25 14:06 Resp 19 06/14/25 14:06 BP 138/77 06/14/25 14:06 Pulse Ox 94 L 06/14/25 14:06 FiO2 Intake & Output 06/13/25 06/14/25 06/14/25 18:59 06:59 18:59 Output Total 500 375 Balance -500 -375 Output: Urine 500 375 Other: Voiding Method Urinal Urinal # Voids 2 1 1 - Labs CBC & Chem 7: 06/15/25 02:59 06/15/25 02:59 Labs: Abnormal Lab Results - Last 24 Hours (Table) 06/13/25 06/14/25 Range/Units 17:24 10:39 RBC 3.63 L (4.40-5.60) 10*6/uL Hgb 11.1 L (13.0-17.0) g/dL Hct 30.2 L (39.6-50.0) % Immature Gran # 0.42 H (0.00-0.04) 10*3/uL Eosinophils # 0.38 H (0.04-0.35) 10*3/uL Sodium 136 L (137-145) mmol/L Potassium 3.3 L (3.5-5.1) mmol/L Glucose 140 H (74-99) mg/dL Calcium 7.9 L (8.4-10.2) mg/dL Microbiology - Last 24 Hours (Table) 06/10/25 12:15 Blood Culture - Preliminary Blood Assessment and Plan (1) History of Clostridioides difficile colitis Current Visit: Yes Status: Acute Code(s): Z86.19 - PERSONAL HISTORY OF OTHER INFECTIOUS AND PARASITIC DISEASES SNOMED Code(s): 684568899 (2) Sepsis Current Visit: Yes Status: Acute Code(s): A41.9 - SEPSIS, UNSPECIFIED ORGANISM SNOMED Code(s): 78398476 (3) UTI (urinary tract infection) Current Visit: Yes Status: Acute Code(s): N39.0 - URINARY TRACT INFECTION, SITE NOT SPECIFIED SNOMED Code(s): 72322710 Plan: 1patient was in the hospital with sepsis in this patient due to fever tachycardia elevated white count meeting criteria for SIRS/Sepsis source likely urinary in this patient did have a history of bilateral renal stones requiring cystoscopy and bilateral ureteral stent placement on 06/01/2025 did have urinary symptoms of burning hematuria suprapubic pain as well as significantly positive UA will need to cover for the resistant gram-negative to the likely pathogen. 2-patient did have a positive blood culture with Pseudomonas aeruginosa urine is growing the same pathogen 3patient clinical course complicated by fall with evidence of left hip fracture for which the patient did have left hip hemiarthroplasty on 06/11/2025 4patient did have resolution of the fever the patient white count is normalized, blood culture repeated on 06/10/2025 so far negative 5patient is currently conforming we will cut the patient on cefepime currently waiting for placement Dictation was produced using [employer] dictation software. please excuse any grammatical, word or spelling errors. Time with Patient: Less than 30
--- NOTE | 2025-06-15 15:45 | P.PN ---
Subjective Progress Note Date: 06/15/25 Principal diagnosis: Reason for follow-up is sepsis/UTI/bacteremia Patient is a 65-year-old male with a past medical history significant for Coronary Artery Disease (CAD), Chest Pain / Angina, CVA/TIA, Diabetes Mellitus, GERD/Reflux, Hyperlipidemia, Hypertension, Myocardial Infarction ([place]), Osteoarthritis (OA), Prostate Disorder, recently on 06/01/2025 he did have a lesly ateral renal stent placement for multiple renal calculi with subsequent admission to hospital with sepsis secondary to urinary source and did have a positive blood culture with Pseudomonas. Patient is status post Left direct anterior hip hemiarthroplasty for displaced left subcapital femoral neck fr acture completed on 06/11/2025. On today's evaluation that is 06/15/2025, Patient is afebrile this morning patient denies having any chest pain shortness of breath or cough, the patient is currently on room air, patient denies any abdominal pain no diarrhea no nausea no vomiting. Patient white count 7.57 platelets 1.0 blood culture repeat has been negative Objective - Vital Signs Vital signs: Vital Signs Temp 98.3 F 06/15/25 07:26 Pulse 68 06/15/25 07:26 Resp 19 06/15/25 07:26 BP 144/82 06/15/25 07:26 Pulse Ox 92 L 06/15/25 07:26 FiO2 Intake & Output 06/14/25 06/15/25 06/15/25 18:59 06:59 18:59 Output Total 375 300 Balance -375 -300 Output: Urine 375 300 Other: Voiding Method Urinal # Voids 1 2 - Exam GENERAL DESCRIPTION: Elderly male lying in bed, no distress. No tachypnea or accessory muscle of respiration use. LUNGS: Unlabored breathing. Clear to auscultation anteriorly. No wheeze or crackle. HEART: S1, S2, regular rate and rhythm. No loud murmur ABDOMEN: Soft, no tenderness NEUROLOGICAL: The patient is awake, alert, mood and affect normal. - Labs CBC & Chem 7: 06/15/25 02:59 06/15/25 02:59 Labs: Abnormal Lab Results - Last 24 Hours (Table) 06/15/25 06/15/25 Range/Units 02:59 02:59 RBC 3.30 L (4.40-5.60) X 10*6/uL Hgb 9.7 L (13.0-17.0) g/dL Hct 29.2 L (39.6-50.0) % Immature Gran # 0.38 H (0.00-0.04) X 10*3/uL Eosinophils # 0.47 H (0.04-0.35) X 10*3/uL Potassium 3.3 L (3.5-5.5) mmol/L BUN/Creatinine Ratio 11.60 L (12.00-20.00) Ratio Glucose 126 H (70-110) mg/dL Calcium 7.7 L (8.7-10.3) mg/dL Assessment and Plan (1) History of Clostridioides difficile colitis Current Visit: Yes Status: Acute Code(s): Z86.19 - PERSONAL HISTORY OF OTHER INFECTIOUS AND PARASITIC DISEASES SNOMED Code(s): 561839787 (2) Sepsis Current Visit: Yes Status: Acute Code(s): A41.9 - SEPSIS, UNSPECIFIED ORGANISM SNOMED Code(s): 67813330 (3) UTI (urinary tract infection) Current Visit: Yes Status: Acute Code(s): N39.0 - URINARY TRACT INFECTION, SITE NOT SPECIFIED SNOMED Code(s): 31176145 Plan: 1patient was in the hospital with sepsis in this patient due to fever tachyc ardia elevated white count meeting criteria for SIRS/Sepsis source likely urinary in this patient did have a history of bilateral renal stones requiring cystoscopy and bilateral ureteral stent placement on 06/01/2025 did have urinary symptoms of burning hematuria suprapubic pain as well as significantly positive UA will need to cover for the resistant gram-negative to the likely pathogen. 2-patient did have a positive blood culture with Pseudomonas aeruginosa urine is growing the same pathogen 3patient clinical course complicated by fall with evidence of left hip fracture for which the patient did have left hip hemiarthroplasty on 06/11/2025 4patient did have resolution of the fever the patient white count is normalized, blood culture repeated on 06/10/2025 so far negative 5patient has received about a week of IV cefepime when needed for another 7 days on discharge as the patient is going to the inpatient rehab will order a midline care discussed with the at the bedside Dictation was produced using [employer] software. please excuse any grammatical, word or spelling errors. Time with Patient: Less than 30
--- NOTE | 2025-06-15 20:16 | P.PN ---
Subjective Progress Note Date: 06/15/25 This is a pleasant 65 year old male who comes in to the ER with vomiting, fever, chills. Had recent ureteral stents placed and kidney stone removal recently. He was found to have pseudomonas UTI and bacteremia and is currently maintained on IV cefepime and awaiting repeat blood cultures for clearance of bacteremia. Urology following and on 06/08 the bilateral ureteral stents have come out accidently. He is doing well and urinating without difficulty currently. Patient fell while in the ER and is now postoperative day #3 left direct anterior hip hemiarthroplasty for displaced subcapital femoral neck fracture. He is currently rating his pain 4-5/10 states that it is managed. Family stated the narcotics made him confused and recommending to continue current pain regimen for now. States his last BM was in the ER. His bowels are soft and normoactive bowel sounds. He is currently on combination of senekot, MOM, colace. He is pending evaluation for inpatient rehab. Labs today reveal white blood cell count 9.44, hgb 11.1, sodium 136, potassium 3.3. 06/15/2025 Patient evaluated today in follow up on the medical floor. Resting in bed currently with no acute complaints. He has still not had a bowel movement. Miralax has been added. Discussed with orthopedics and will resume patient on aspirin/plavix combination vs. aspirin 81 mg BID due to significant history of multiple cardiac stents and stroke. Also resumed on toprol XL. Patients concerned with DC planning as [facility] has evaluated the patient today and recommending [facility] vs inpatient rehab and requesting for them to follow up with patient tomorrow for re-evaluation. Repeat blood culture remains negative. Labs today showing white blood cell count 7.57, hgb 9.7, sodium 137, potassium 3.3. BUN 11.6, creatinine 1.0. He has been afebrile, maintaining normal sinus mechanism, blood pressure 144/82. He is on room air with oxygen saturations of 97%. Review of Systems Constitutional: Denied any fatigue denied any fever. Cardio vascular: denied any chest pain, palpitations Gastrointestinal: denied any nausea, vomiting, diarrhea Pulmonary: Denied any shortness of breath cough Neurologic denied any new focal deficits All inpatient medications were reviewed and appropriate changes in these medications as dictated in the interval history and assessment and plan. PHYSICAL EXAMINATION: GENERAL: The patient is alert and oriented x3, not in any acute distress. Well developed, well nourished. HEENT: Pupils are round and equally reacting to light. EOMI. No scleral icterus. No conjunctival pallor. Normocephalic, atraumatic. No pharyngeal erythema. No thyromegaly. CARDIOVASCULAR: S1 and S2 present. No murmurs, rubs, or gallops. PULMONARY: Chest is clear to auscultation, no wheezing or crackles. ABDOMEN: Soft, nontender, nondistended, normoactive bowel sounds. No palpable organomegaly. MUSCULOSKELETAL: No joint swelling or deformity. EXTREMITIES: No cyanosis, clubbing, or pedal edema. NEUROLOGICAL: Gross neurological examination did not reveal any focal deficits. SKIN: No rashes. Assessment Sepsis with leukocytosis and fever urinary tract infection with pseudomonas Pseudomonas bacteremia Acute left femoral neck fracture s/p left hip hemiarthroplasty on 06/11 Patient had recent stone removal with stent placement 1 week earlier. Bilateral stents removed on 06/08 Hypokalemia Coronary artery disease, status post CABG and stent Fall in the hospital followed by left humeral and femoral fracture History of stroke and left hemiparesis Diabetes mellitus Hypertension Hyperlipidemia History of osteoarthritis Gastroesophageal reflux disease Benign prostatic hypertrophy GI prophylaxis DVT prophylaxis Full Code Plan Continue IV cefepime and await repeat blood cultures ID following IV fluids have been discontinued Encourage increased activity level although patient is a 2 person assist with left sided weakness and foot drop from prior stroke He will be evaluated by inpatient rehab; requesting IPR to re-evaluate patient tomorrow Continue bowel regimen while using narcotics for pain and miralax daily has been added. Discussed with orthopedics and patient resumed on aspirin plavix vs aspirin BID Resumed on toprol 12.5 mg daily. Supplement potassium Repeat BMP in AM The impression and plan of care has been dictated by Mansi Granger Nurse Practitioner as directed. Dr. Flako MD I have performed a history and physical examination and medical decision making of this patient, discussed the same with the dictator, and agree with the dictators assessment and plan as written, documented as a scribe. Based on total visit time, I have performed more than 50% of this visit. Objective - Vital Signs Vital signs: Vital Signs Temp 98.0 F 06/15/25 15:02 Pulse 82 06/15/25 15:02 Resp 18 06/15/25 15:02 BP 116/63 06/15/25 15:02 Pulse Ox 97 06/15/25 15:02 FiO2 Intake & Output 06/15/25 06/15/25 06/16/25 06:59 18:59 06:59 Intake Total 840 Output Total 300 Balance -300 840 Weight 77.111 kg Intake: Intake, IV Titration 200 Amount ACETAMINOPHEN IV (For NPO 100 ) 1,000 mg In Empty Bag 1 bag @ 400 mls/hr IVPB Q6H ARIELA Rx#:[id number] Cefepime 2 gm In Sodium 100 Chloride 0.9% 100 ml @ 25 mls/hr IVPB Q8HR [facility]ELA Rx# :[id number] Oral 640 Output: Urine 300 Other: Voiding Method Urinal # Voids 3 1 # Bowel Movements 1 - Labs CBC & Chem 7: 06/15/25 02:59 06/15/25 02:59 Labs: Abnormal Lab Results - Last 24 Hours (Table) 06/15/25 06/15/25 Range/Units 02:59 02:59 RBC 3.30 L (4.40-5.60) X 10*6/uL Hgb 9.7 L (13.0-17.0) g/dL Hct 29.2 L (39.6-50.0) % Immature Gran # 0.38 H (0.00-0.04) X 10*3/uL Eosinophils # 0.47 H (0.04-0.35) X 10*3/uL Potassium 3.3 L (3.5-5.5) mmol/L BUN/Creatinine Ratio 11.60 L (12.00-20.00) Ratio Glucose 126 H (70-110) mg/dL Calcium 7.7 L (8.7-10.3) mg/dL Assessment and Plan Time with Patient: Less than 30
[2025-06-16] MEDS: ASPIRIN 81 MG PO SCH (10:52)
[2025-06-16 10:54] LABS: Anion Gap 7.80 mmol/L (4.00-12.00); BUN/Creat Ratio 10.18 Ratio (12.00-20.00); Blood Urea Nitrogen 11.2 mg/dL (9.0-27.0); Calcium 7.8 mg/dL (8.7-10.3); Carbon Dioxide 25.2 mmol/L (21.6-31.8); Chloride 104 mmol/L (96-109); Glucose 100 mg/dL (70-110); Potassium 4.1 mmol/L (3.5-5.5); Sodium 137 mmol/L (135-145)
--- NOTE | 2025-06-16 14:29 | P.PN ---
Subjective Progress Note Date: 06/16/25 This is a pleasant 65 year old male who comes in to the ER with vomiting, fever, chills. Had recent ureteral stents placed and kidney stone removal recently. He was found to have pseudomonas UTI and bacteremia and is currently maintained on IV cefepime and awaiting repeat blood cultures for clearance of bacteremia. Urology following and on 06/08 the bilateral ureteral stents have come out accidently. He is doing well and urinating without difficulty currently. Patient fell while in the ER and is now postoperative day #3 left direct anterior hip hemiarthroplasty for displaced subcapital femoral neck fracture. He is currently rating his pain 4-5/10 states that it is managed. Family stated the narcotics made him confused and recommending to continue current pain regimen for now. States his last BM was in the ER. His bowels are soft and normoactive bowel sounds. He is currently on combination of senekot, MOM, colace. He is pending evaluation for inpatient rehab. Labs today reveal white blood cell count 9.44, hgb 11.1, sodium 136, potassium 3.3. 06/15/2025 Patient evaluated today in follow up on the medical floor. Resting in bed currently with no acute complaints. He has still not had a bowel movement. Miralax has been added. Discussed with orthopedics and will resume patient on aspirin/plavix combination vs. aspirin 81 mg BID due to significant history of multiple cardiac stents and stroke. Also resumed on toprol XL. Patients concerned with DC planning as [facility] has evaluated the patient today and recommending [facility] vs inpatient rehab and requesting for them to follow up with patient tomorrow for re-evaluation. Repeat blood culture remains negative. Labs today showing white blood cell count 7.57, hgb 9.7, sodium 137, potassium 3.3. BUN 11.6, creatinine 1.0. He has been afebrile, maintaining normal sinus mechanism, blood pressure 144/82. He is on room air with oxygen saturations of 97%. 06/16/2025 Patient is evaluated in follow-up on the medical floor. No acute complaints overnight. He will continue on MiraLAX daily and his bowels have moved. He is reporting no significant shortness of breath. He has been denied inpatient rehab and after discussion with family the bedside [facility]. His repeat blood culture is final and negative. He does continue IV cefepime with findings for the Pseudomonas bacteremia and pending final antibiotic Nations from infectious disease. He will likely be discharged to [facility] tomorrow. Patient's stated that they did follow back up with his primary market master who would like the patient on aspirin Plavix combination and this has already been resumed. Review of Systems Constitutional: Denied any fatigue denied any fever. Cardio vascular: denied any chest pain, palpitations Gastrointestinal: denied any nausea, vomiting, diarrhea Pulmonary: Denied any shortness of breath cough Neurologic denied any new focal deficits All inpatient medications were reviewed and appropriate changes in these medications as dictated in the interval history and assessment and plan. PHYSICAL EXAMINATION: GENERAL: The patient is alert and oriented x3, not in any acute distress. Well developed, well nourished. HEENT: Pupils are round and equally reacting to light. EOMI. No scleral icterus. No conjunctival pallor. Normocephalic, atraumatic. No pharyngeal erythema. No thyromegaly. CARDIOVASCULAR: S1 and S2 present. No murmurs, rubs, or gallops. PULMONARY: Chest is clear to auscultation, no wheezing or crackles. ABDOMEN: Soft, nontender, nondistended, normoactive bowel sounds. No palpable or ganomegaly. MUSCULOSKELETAL: No joint swelling or deformity. EXTREMITIES: No cyanosis, clubbing, or pedal edema. NEUROLOGICAL: Gross neurological examination did not reveal any focal deficits. SKIN: No rashes. Assessment Sepsis with leukocytosis and fever urinary tract infection with pseudomonas Pseudomonas bacteremia Acute left femoral neck fracture s/p left hip hemiarthroplasty on 06/11 Patient had recent stone removal with stent placement 1 week earlier. Bilateral stents removed on 06/08 Hypokalemia Coronary artery disease, status post CABG and stent Fall in the hospital followed by left humeral and femoral fracture History of stroke and left hemiparesis Diabetes mellitus Hypertension Hyperlipidemia History of osteoarthritis Gastroesophageal reflux disease Benign prostatic hypertrophy GI prophylaxis DVT prophylaxis Full Code Plan Continue IV cefepime blood culture repeat is final and negative. ID following and pending final DC antibiotic recommendations IV fluids have been discontinued Encourage increased activity level although patient is a 2 person assist with left sided weakness and foot drop from prior stroke Continue bowel regimen while using narcotics for pain and miralax daily has been added. Discussed with orthopedics and patient resumed on aspirin plavix vs aspirin BID Resumed on toprol 12.5 mg daily. Plan for [place] tomorrow. The impression and plan of care has been dictated by Mansi Granger, Nurse Practitioner as directed. Dr. Flako MD I have performed a history and physical examination and medical decision making of this patient, discussed the same with the dictator, and agree with the dictators assessment and plan as written, documented as a scribe. Based on total visit time, I have performed more than 50% of this visit. Objective - Vital Signs Vital signs: Vital Signs Temp 98.0 F 06/16/25 07:23 Pulse 64 06/16/25 07:23 Resp 18 06/16/25 07:23 BP 165/94 06/16/25 07:23 Pulse Ox 95 06/16/25 07:23 FiO2 Intake & Output 06/15/25 06/16/25 06/16/25 18:59 06:59 18:59 Intake Total 840 Output Total 300 Balance 840 -300 Weight 77.111 kg Intake: Intake, IV Titration 200 Amount ACETAMINOPHEN IV (For NPO 100 ) 1,000 mg In Empty Bag 1 bag @ 400 mls/hr IVPB Q6H [facility] Rx#:[id number] Cefepime 2 gm In Sodium 100 Chloride 0.9% 100 ml @ 25 mls/hr IVPB Q8HR [facility] Rx# :[id number] Oral 640 Output: Urine 300 Other: # Voids 3 2 # Bowel Movements 1 - Labs CBC & Chem 7: 06/15/25 02:59 06/16/25 05:55 Labs: Microbiology - Last 24 Hours (Table) 06/10/25 12:15 Blood Culture - Final Blood Assessment and Plan Time with Patient: Less than 30
--- NOTE | 2025-06-17 08:44 | P.PN ---
Subjective Progress Note Date: 06/16/25 Principal diagnosis: Reason for follow-up is sepsis/UTI/bacteremia Patient is a 65-year-old male with a past medical history significant for Coronary Artery Disease (CAD), Chest Pain / Angina, CVA/TIA, Diabetes Mellitus, GERD/Reflux, Hyperlipidemia, Hypertension, Myocardial Infarction ([place]), Osteoarthritis (OA), Prostate Disorder, recently on 06/01/2025 he did have a lesly ateral renal stent placement for multiple renal calculi with subsequent admission to hospital with sepsis secondary to urinary source and did have a positive blood culture with Pseudomonas. Patient is status post Left direct anterior hip hemiarthroplasty for displaced left subcapital femoral neck fr acture completed on 06/11/2025. On today's evaluation that is 06/16/2025,the patient denies any fever or any chills, patient is breathing comfortably on room air, the patient denies chest pain shortness of breath and no significant cough, patient denies abdominal pain, no nausea vomiting or diarrhea. Patient did have a creatinine 1.1 no CBC was done blood culture from 06/10/2025 remains to be negative Objective - Vital Signs Vital signs: Vital Signs Temp 98.0 F 06/16/25 07:23 Pulse 64 06/16/25 07:23 Resp 18 06/16/25 07:23 BP 165/94 06/16/25 07:23 Pulse Ox 95 06/16/25 07:23 FiO2 Intake & Output 06/15/25 06/16/25 06/16/25 18:59 06:59 18:59 Intake Total 840 Output Total 300 Balance 840 -300 Weight 77.111 kg Intake: Intake, IV Titration 200 Amount ACETAMINOPHEN IV (For NPO 100 ) 1,000 mg In Empty Bag 1 bag @ 400 mls/hr IVPB Q6H [facility] Rx#:[id number] Cefepime 2 gm In Sodium 100 Chloride 0.9% 100 ml @ 25 mls/hr IVPB Q8HR [facility] Rx# :[id number] Oral 640 Output: Urine 300 Other: Voiding Method Urinal # Voids 3 2 1 # Bowel Movements 1 1 - Exam GENERAL DESCRIPTION: Elderly male lying in bed, no distress. No tachypnea or accessory muscle of respiration use. LUNGS: Unlabored breathing. Clear to auscultation anteriorly. No wheeze or crackle. HEART: S1, S2, regular rate and rhythm. No loud murmur ABDOMEN: Soft, no tenderness NEUROLOGICAL: The patient is awake, alert, mood and affect normal. - Labs CBC & Chem 7: 06/15/25 02:59 06/16/25 05:55 Labs: Abnormal Lab Results - Last 24 Hours (Table) 06/16/25 Range/Units 05:55 BUN/Creatinine Ratio 10.18 L (12.00-20.00) Ratio Calcium 7.8 L (8.7-10.3) mg/dL Microbiology - Last 24 Hours (Table) 06/10/25 12:15 Blood Culture - Final Blood Assessment and Plan (1) History of Clostridioides difficile colitis Current Visit: Yes Status: Acute Code(s): Z86.19 - PERSONAL HISTORY OF OTHER INFECTIOUS AND PARASITIC DISEASES SNOMED Code(s): 767583340 (2) Sepsis Current Visit: Yes Status: Acute Code(s): A41.9 - SEPSIS, UNSPECIFIED ORGANISM SNOMED Code(s): 24358068 (3) UTI (urinary tract infection) Current Visit: Yes Status: Acute Code(s): N39.0 - URINARY TRACT INFECTION, SITE NOT SPECIFIED SNOMED Code(s): 46399323 Plan: 1patient was in the hospital with sepsis in this patient due to fever tachycardia elevated white count meeting criteria for SIRS/Sepsis source likely urinary in this patient did have a history of bilateral renal stones requiring cystoscopy and bilateral ureteral stent placement on 06/01/2025 did have urinary symptoms of burning hematuria suprapubic pain as well as significantly positive UA will need to cover for the resistant gram-negative to the likely pathogen. 2-patient did have a positive blood culture with Pseudomonas aeruginosa urine is growing the same pathogen 3patient clinical course complicated by fall with evidence of left hip fracture for which the patient did have left hip hemiarthroplasty on 06/11/2025 4patient did have resolution of the fever the patient white count is normalized, blood culture repeated on 06/10/2025 so far negative 5patient did have a midline placement will continue with IV cefepime for about a week on discharge to finish her course of therapy Dictation was produced using [employer] dictation software. please excuse any grammatical, word or spelling errors. Time with Patient: Less than 30
--- NOTE | 2025-06-17 13:53 | P.PN ---
Subjective Progress Note Date: 06/17/25 Principal diagnosis: Reason for follow-up is sepsis/UTI/bacteremia Patient is a 65-year-old male with a past medical history significant for Coronary Artery Disease (CAD), Chest Pain / Angina, CVA/TIA, Diabetes Mellitus, GERD/Reflux, Hyperlipidemia, Hypertension, Myocardial Infarction ([place]), Osteoarthritis (OA), Prostate Disorder, recently on 06/01/2025 he did have a lesly ateral renal stent placement for multiple renal calculi with subsequent admission to hospital with sepsis secondary to urinary source and did have a positive blood culture with Pseudomonas. Patient is status post Left direct anterior hip hemiarthroplasty for displaced left subcapital femoral neck fr acture completed on 06/11/2025. On today's evaluation that is 06/17/2025,the patient remains to be afebrile, patient is on room air not requiring supplemental oxygen and denies any shortness of breath no chest pain or cough.Patient denies having any nausea or vomiting, no abdominal pain and no diarrhea has been reported. Patient did not have a lab draw today blood culture from 06/10/2025 has been ne nereyda Objective - Vital Signs Vital signs: Vital Signs Temp 98.4 F 06/17/25 07:53 Pulse 62 06/17/25 07:53 Resp 14 06/17/25 07:53 BP 127/61 06/17/25 07:53 Pulse Ox 93 L 06/17/25 07:53 FiO2 Intake & Output 06/16/25 06/17/25 06/17/25 18:59 06:59 18:59 Output Total 115 Balance -115 Weight 77.111 kg Output: Urine 115 Other: Voiding Method Urinal Urinal Urinal Diaper # Voids 1 4 # Bowel Movements 1 1 - Exam GENERAL DESCRIPTION: Elderly male lying in bed, no distress. No tachypnea or accessory muscle of respiration use. LUNGS: Unlabored breathing. Clear to auscultation anteriorly. No wheeze or crackle. HEART: S1, S2, regular rate and rhythm. No loud murmur ABDOMEN: Soft, no tenderness NEUROLOGICAL: The patient is awake, alert, mood and affect normal. - Labs CBC & Chem 7: 06/15/25 02:59 06/16/25 05:55 Assessment and Plan (1) History of Clostridioides difficile colitis Current Visit: Yes Status: Acute Code(s): Z86.19 - PERSONAL HISTORY OF OTHER INFECTIOUS AND PARASITIC DISEASES SNOMED Code(s): 050672044 (2) Sepsis Current Visit: Yes Status: Acute Code(s): A41.9 - SEPSIS, UNSPECIFIED ORGANISM SNOMED Code(s): 62058482 (3) UTI (urinary tract infection) Current Visit: Yes Status: Acute Code(s): N39.0 - URINARY TRACT INFECTION, SITE NOT SPECIFIED SNOMED Code(s): 01827661 Plan: 1patient was in the hospital with sepsis in this patient due to fever tachycardia elevated white count meeting criteria for SIRS/Sepsis source likely urinary in this patient did have a history of bilateral renal stones requiring cystoscopy and bilateral ureteral stent placement on 06/01/2025 did have urinary symptoms of burning hematuria suprapubic pain as well as significantly positive UA will need to cover for the resistant gram-negative to the likely pathogen. 2-patient did have a positive blood culture with Pseudomonas aeruginosa urine is growing the same pathogen 3patient clinical course complicated by fall with evidence of left hip fracture for which the patient did have left hip hemiarthroplasty on 06/11/2025 4patient did have resolution of the fever the patient white count is normalized, blood culture repeated on 06/10/2025 so far negative 5patient slowly clinic improvement to continue with the cefepime to finish total 2-week course of therapy care has been discussed in detail with the daughter and the at the bedside Dictation was produced using [employer] dictation software. please excuse any grammatical, word or spelling errors. Time with Patient: Less than 30
--- NOTE | 2025-06-17 14:30 | P.DS ---
Providers Date of admission: 06/08/25 09:53 Attending physician: Adebayo Hunt MD Consults: 06/08/25 10:21 Consult Physician Urgent Consulting Provider: Srinath Smith Consult Reason/Comments: sepsis recent litho and stent place Do you want consulting provider notified?: Yes Consult Physician Urgent Consulting Provider: Jakob Walden Consult Reason/Comments: sepsis Do you want consulting provider notified?: Yes 06/09/25 13:12 Consult Physician Urgent Consulting Provider: Mor Pritchard Consult Reason/Comments: Dislocated hip and should from hospital fall Do you want consulting provider notified?: Yes 06/09/25 15:33 Consult Physician Routine Consulting Provider: Sina Tse Consult Reason/Comments: Surgical clearance Do you want consulting provider notified?: Yes 06/14/25 14:47 Consult Physician Routine Consulting Provider: Jorge Miranda Consult Reason/Comments: IPR Do you want consulting provider notified?: Yes Primary care physician: Rahul Ceballos Hospital Course: Final Diagnosis Sepsis with leukocytosis and fever urinary tract infection with pseudomonas Pseudomonas bacteremia Fall in the hospital followed by left humeral and femoral fracture Acute left femoral neck fracture s/p left hip hemiarthroplasty on 06/11 Patient had kidney stones with lithotripsy on June 01 bilateral ureteral stent placement. Bilateral stents removed on 06/08 Hypokalemia resolved Coronary artery disease, status post CABG and stent History of stroke and left hemiplegia Diabetes mellitus Hypertension Hyperlipidemia History of osteoarthritis Gastroesophageal reflux disease Benign prostatic hypertrophy GI prophylaxis DVT prophylaxis Full Code Discharge Disposition Patient stable for discharge tomorrow rehabilitation [place]. Patient to continue on IV cefepime 2 g every 8 hours for the next 14 days as recommended by infectious disease. Patient to follow-up closely with Dr. Walden in the office and recommending a 1 week out appointment. Patient has been resumed on aspirin Plavix. 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 Additionally patient has been evaluated and followed by urology this admission recommending to follow-up with Dr. Faustin in the office in 1 to 2 weeks. Patient to follow-up with his primary physician Dr. Ceballos on discharge. Recommend he monitor blood work in the next 3 days as well as weekly while maintained on the IV antibiotics. Patient is encouraged to continue with incentive spirometer 10 times an hour while awake. Patient to remain on bowel regimen to promote daily bowel movements while using narcotics for pain management. Total time taken in discharge planning greater than 35 minutes. Hospital Course This is a pleasant 65 year old male who comes in to the ER with vomiting, fever, chills. Has a past medical history of coronary artery disease with prior coronary artery bypass grafting and multiple cardiac stents, hypertension, hyperlipidemia, diabetes mellitus, history of stroke with left hemiplegia. Had recent ureteral stents placed and kidney stone removal recently on 06/01. He was discharged home. He came back in to the hospital with features of sepsis. He was found to have pseudomonas UTI and bacteremia and is currently maintained on IV cefepime. ID has been following the cultures. His follow up blood culture came back negative. Urology following and on 06/08 the bilateral ureteral stents removed. He is doing well and urinating without difficulty currently. Patient fell while in the ER pending admission and is now postoperative day #3 left direct anterior hip hemiarthroplasty for displaced subcapital femoral neck fracture. As part of his preoperative clearance he had an echocardiogram completed which reveals an EF of 30-35% with dilated left ventricle with reduced LV systolic function. He has RV enlargement. He has been monitored on the medical floor. No reports of chest pain or shortness of breath. He has been tolerating diet. He is currently rating his pain 4-5/10 states that it is managed. Family stated the narcotics made him confused and recommending to continue current pain regimen for now as his mentation has improved and he is now alert and oriented x 3. He has been having daily BMs now with the addition of miralax. His bowels are soft and normoactive bowel sounds. He is currently on combination of senekot, MOM, colace. Postoperatively he was placed on aspirin 81 mg twice daily and discussed with orthopedics and patient has now been resumed on aspirin 81 mg daily and plavix 75 mg daily. His most recent blood work reveals white blood cell count 7.57, hgb 9.7, sodium 137, potassium 4.1, BUN 11.2, creatinine 1.1. He has been afebrile, heart rate of 78 normal sinus rhythm, blood pressure 127/61, 97% on room air. He will be discharged to [facility] today. Review of Systems Constitutional: Denied any fatigue denied any fever. Cardio vascular: denied any chest pain, palpitations Gastrointestinal: denied any nausea, vomiting, diarrhea Pulmonary: Denied any shortness of breath cough Neurologic denied any new focal deficits Please see medication reconciliation for a list of current medications. Thank christen cordova for allowing us to participate in the care of this patient. The impression and plan of care has been dictated by Mansi Granger, Nurse Practitioner as directed. Dr. Flako MD I have performed a history and physical examination and medical decision making of this patient, discussed the same with the dictator, and agree with the dictators assessment and plan as written, documented as a scribe. Based on total visit time, I have performed more than 50% of this visit. Patient Condition at Discharge: Stable Plan - Discharge Summary Discharge Rx Participant: No New Discharge Prescriptions: New Magnesium Hydroxide [Milk of Magnesia] 2,400 mg PO DAILY PRN ml PRN Reason: Constipation amLODIPine [Norvasc] 5 mg PO DAILY tab Sennosides-Docusate Sodium [Senokot-S] 2 each PO HS tab polyethylene glycoL 3350 [Miralax] 17 gm PO DAILY packet HYDROcodone/APAP 5-325MG [[place] 5-325] 1 each PO Q6HR PRN #4 tab PRN Reason: Pain Scale 1 To 5 Cefepime [Maxipime] 2 gm IVPB Q8HR 14 Days each Continue Clopidogrel [Plavix] 75 mg PO DAILY Atorvastatin [Lipitor] 80 mg PO HS Aspirin [Adult Low Dose Aspirin EC] 81 mg PO DAILY Calcium Carbonate [Tums] 500 - 1,000 mg PO DAILY PRN PRN Reason: Indigestion Tamsulosin [Flomax] 0.4 mg PO DAILY #10 cap Docusate [Colace] 100 mg PO BID Acetaminophen [Tylenol] 325 mg PO Q6H PRN PRN Reason: Pain Baclofen 10 mg PO BID droNABinol 5 mg PO DAILY ramipriL 10 mg PO DAILY Gabapentin 300 mg PO HS Nitroglycerin 0.4 mg SL Q5M PRN PRN Reason: Chest Pain Metoprolol Succinate (ER) [Toprol XL] 12.5 mg PO DAILY Famotidine 20 mg PO DAILY traZODone HCL [Desyrel] 50 mg PO HS FLUoxetine HCL 40 mg PO DAILY Isosorbide Mononitrate ER [Imdur] 30 mg PO DAILY Discontinued traMADol HCl [Ultram] 50 mg PO Q6HR PRN 3 Days #12 tab PRN Reason: Pain Discharge Medication List Aspirin [Adult Low Dose Aspirin EC] 81 mg PO DAILY 06/17/20 [History] Atorvastatin [Lipitor] 80 mg PO HS 06/17/20 [History] Calcium Carbonate [Tums] 500 - 1,000 mg PO DAILY PRN 06/17/20 [History] Clopidogrel [Plavix] 75 mg PO DAILY 06/17/20 [History] Tamsulosin [Flomax] 0.4 mg PO DAILY #10 cap 04/21/24 [Rx] Acetaminophen [Tylenol] 325 mg PO Q6H PRN 05/28/25 [History] Baclofen 10 mg PO BID 05/28/25 [History] Docusate [Colace] 100 mg PO BID 05/28/25 [History] FLUoxetine HCL 40 mg PO DAILY 05/28/25 [History] Famotidine 20 mg PO DAILY 05/28/25 [History] Gabapentin 300 mg PO HS 05/28/25 [History] Isosorbide Mononitrate ER [Imdur] 30 mg PO DAILY 05/28/25 [History] Metoprolol Succinate (ER) [Toprol XL] 12.5 mg PO DAILY 05/28/25 [History] Nitroglycerin 0.4 mg SL Q5M PRN 05/28/25 [History] droNABinol 5 mg PO DAILY 05/28/25 [History] traZODone HCL [Desyrel] 50 mg PO HS 05/28/25 [History] ramipriL 10 mg PO DAILY 06/08/25 [History] Cefepime [Maxipime] 2 gm IVPB Q8HR 14 Days each 06/17/25 [Rx] HYDROcodone/APAP 5-325MG [[place] 5-325] 1 each PO Q6HR PRN #4 tab 06/17/25 [Rx] Magnesium Hydroxide [Milk of Magnesia] 2,400 mg PO DAILY PRN ml 06/17/25 [Rx] Sennosides-Docusate Sodium [Senokot-S] 2 each PO HS tab 06/17/25 [Rx] amLODIPine [Norvasc] 5 mg PO DAILY tab 06/17/25 [Rx] polyethylene glycoL 3350 [Miralax] 17 gm PO DAILY packet 06/17/25 [Rx] Follow up Appointment(s)/Referral(s): Rahul Ceballos MD [Primary Care Provider] - 1-2 days Anna Zaragoza [NON-STAFF] - As Needed Carlos Zuluaga MD [Medical Doctor] - 2 Weeks Ravinder Unger [NON-STAFF] - As Needed (left shoulder immobilizer) Jakob Walden MD [STAFF PHYSICIAN] - 1 Week Jerardo Faustin MD [STAFF PHYSICIAN] - 1 Week Nitish Zaldivar MD [REFERRING] - 1 Week Ambulatory/Diagnostic Orders: C Reactive Protein [LAB.AMB] Location: None Selected Complete Blood Count w/diff [LAB.AMB] Time Frame: 3 Days, Location: None Selected Activity/Diet/Wound Care/Special Instructions: Left hip: 1. Weight-bear as tolerated on your left lower extremity. Use a walker or other assistive device to ambulate. 2. Leave surgical dressing in place. If your dressing becomes saturated with blood, there is drainage, or the dressing becomes loose please contact the office. 3. It is okay to shower with your surgical dressing, but do not submerge in water (no hot tubs, bath's, swimming etc.) 4. Anticoagulation per primary team. 5. Pain per primary team. 6. Keep all follow-up appointments as scheduled. You will usually be seen in 1-2 weeks following surgery. 7. Please contact the office with any questions or concerns [phone] Left shoulder: 1. In regards to his proximal humerus fracture this can be treated nonoperatively. Script for a shoulder immobilizer placed in his chart 06/10/2025. Nonweightbearing left upper extremity. May remove immobilizer in bed for comfort. Discharge Disposition: TRANSFER TO SNF/ECF
[2025-06-17 15:07] VITALS: BP 129/63; PULSE 69; RESP 17; TEMP 99.3
--- NOTE | 2025-06-17 16:55 | CDI ---
Documentation Clarification Form Date: 06/16/2025 08:20:00 PM From: Melissa Hsieh RN, CCDS Phone: [phone] Admit Date: 06/08/2025 09:53:00 AM Patient Name: Gerald Pack Visit Number: [id number] Discharge Date: ATTENTION: The Clinical Documentation Specialists (CDI) and [facility] Coding Staff appreciate your assistance in clarifying documentation. Please respond to the clarification below the line at the bottom and electronically sign. The CDI & [facility] Coding staff will review the response and follow-up if needed. Please note: Queries are made part of the Legal Health Record. If you have and please contact the author of this message via ITS. Doctor. Jerardo Fongvalorie UTI is documented in the Urology consult and subsequent progress note and patient had bilateral stents. Additional clarification regarding the etiology of the UTI is requested. History/Risk Factors: Prostate Disorder, TURP x2, renal calculi, CVA, Diabetes Mellitus Clinical Indicators: Patient had kidney stones with lithotripsy on bilateral ureteral stent placement. He experienced chills, generalized aches, nausea, and vomiting, and presented to ER on 06/08/25. Urinalysis was consistent with a UTI. CT scan showed no hydronephrosis with appropriate positioning of the ureteral stents. He was straight Cath to obtain a urine specimen. One of the stents was partially out.and had to be removed causing the other to come out 06/08/2506/08 Urinalysis: Urine appearance Cloudy, Ur Leukocyte Esterase Large, Urine WBC>182 06/08 Urine culture: Pseudomonas aeruginosa 06/08 Lab results: WBC 26.28, Neutrophils 23.52, lactic acid 2.4, 12.1, 3.7, 2.3, and 3.9 06/08 VS (08:51) 148/82 78 18 102.6 99% RA Treatment: Cefepime HCl 2 GM IVPB Q 8 HRS 06/11-06/17 Rocephin 1 GM IVPB Once 06/08>2 GM 06/09 Please clarify the etiology of the UTI, if known: . [ ] Ureteral stents. [ ] Other condition, please specify [ X] Unable to determine (Template Last Revised: January 2021) MTDD
--- NOTE | 2025-06-18 10:36 | CDI ---
Documentation Clarification Form Date: 06/18/2025 08:17:19 AM From: Melissa Hsieh Phone: [phone] Admit Date: 06/08/2025 09:53:00 AM Patient Name: Gerald Pack Visit Number: [id number] Discharge Date: 06/17/2025 05:24:00 PM ATTENTION: The Clinical Documentation Specialists (CDI) and [facility] Coding Staff appreciate your assistance in clarifying documentation. Please respond to the clarification below the line at the bottom and electronically sign. The CDI & [facility] Coding staff will review the response and follow-up if needed. Please note: Queries are made part of the Legal Health Record. If you have any questions, please contact the author of this message via ITS. Doctor. Carlos Zuluaga A fracture is documented in the Orthopedic Consult and subsequent progress note. Additional clarification regarding the etiology of the fracture is requested. History/Risk Factors: Stroke, hemiaplasia left side), Osteoarthritis, Severe osteoporosis (per operative note) Clinical Indications: 65-year-old mall was getting off his commode he was being helped with an market risk analyst he was unable to hold him and the patient fell onto his left side. He had sudden acute pain at his left hip and his left shoulder. Per operative report the patient was found to have exceedingly poor bone quality consistent with advanced osteoporosis 06/09 VS 156/83 83 16 99.7 93% RA 06/09 Labs: WBC 22.84, Neutrophils 20.7 06/09 Left Shoulder XR: Acute nondisplaced fracture involving the proximal left humerus surgical neck. 06/09 Hip XR: Mildly displacing comminuted subcapital fracture of the left hip. Severe osteoporosis Treatment: Rocephin 1 GM IVPB Once 06/08>2 GM IVPB 06/09-06/09 Cefepime HCL 2 GM IVPB Q 12 HRS 06/09-06/12> 2 GM IVPB Q 8 HR 06/12-06/17. PT/OT evaluate and treat Left direct anterior Hip Hemiarthroplasty Application of negative pressure incisional wound VAC, left hip Please clarify the etiology of the fracture, if known: [ ] Osteoporosis, severe with disuse contributing to the cause of the fracture to Left Hip and Left shoulder [ ] Other (please specify): [ ] Unable to determine (Template Last Revised: January 2021) MTDD
--- NOTE | 2025-06-25 08:33 | CDI ---
Documentation Clarification Form Date: 06/25/2025 08:18:00 AM From: Melissa Hsieh RN, CCDS Phone: [phone] Admit Date: 06/08/2025 09:53:00 AM Patient Name: Gerald Pack Visit Number: [id number] Discharge Date: 06/17/2025 05:24:00 PM ATTENTION: The Clinical Documentation Specialists (CDI) and [facility] Coding Staff appreciate your assistance in clarifying documentation. Please respond to the clarification below the line at the bottom and electronically sign. The CDI & [facility] Coding staff will review the response and follow-up if needed. Please note: Queries are made part of the Legal Health Record. If you have any questions, please contact the author of this message via ITS. Doctor. Carlos Zuluaga A fracture is documented in the Orthopedic Consult and subsequent progress note. Additional clarification regarding the etiology of the fracture is requested. History/Risk Factors: Stroke, hemiaplasia left side), Osteoarthritis, Severe osteoporosis (per operative note) Severe weakness left upper and lower extremities. Clinical Indications: 65-year-old mall was getting off his commode he was being helped with an conveyor monitor he was unable to hold him and the patient fell onto his left side. He had sudden acute pain at his left hip and his left shoulder. Per operative report the patient was found to have exceedingly poor bone quality consistent with advanced osteoporosis 06/09 VS 156/83 83 16 99.7 93% RA 06/09 Labs: WBC 22.84, Neutrophils 20.7 06/09 Left Shoulder XR: Diffuse bone demineralization. Acute nondisplaced fracture involving the proximal left humerus surgical neck. 06/09 Hip XR: Mildly displacing comminuted subcapital fracture of the left hip. Severe osteoporosis Treatment: Rocephin 1 GM IVPB Once 06/08>2 GM IVPB 06/09-06/09 Cefepime HCL 2 GM IVPB Q 12 HRS 06/09-06/12> 2 GM IVPB Q 8 HR 06/12-06/17. PT/OT evaluate and treat Left direct anterior Hip Hemiarthroplasty Left Shoulder immobilizer Application of negative pressure incisional wound VAC, left hip Please clarify the etiology of the fracture, if known: [ ] Osteoporosis, severe with disuse contributing to the cause of the fracture to Left Hip and Left shoulder [ ] Other (please specify): [ ] Unable to determine (Template Last Revised: January 2021) MTDD
--- NOTE | 2025-06-28 08:55 | P.PN ---
Progress Note - Text Progress Note Date: 06/28/25 Cause of the patient's fracture is osteoporosis/fragility fracture and trauma/fall.
--- NOTE | 2025-06-29 18:14 | CDI ---
Documentation Clarification Form Date: 06/29/2025 06:00:00 PM From: Melissa Hsieh RN, CCDS Phone: [phone] Admit Date: 06/08/2025 09:53:00 AM Patient Name: Gerald Pack Visit Number: [id number] Discharge Date: 06/17/2025 05:24:00 PM ATTENTION: The Clinical Documentation Specialists (CDI) and [facility] Coding Staff appreciate your assistance in clarifying documentation. Please respond to the clarification below the line at the bottom and electronically sign. The CDI & [facility] Coding staff will review the response and follow-up if needed. Please note: Queries are made part of the Legal Health Record. If you have any questions, please contact the author of this message via ITS. Doctor. Srinath Smith UTI is documented in the Urology consult and subsequent progress note and patient had bilateral stents. Additional clarification regarding the etiology of the UTI is requested. History/Risk Factors: Prostate Disorder, TURP x2, renal calculi, CVA, Diabetes Mellitus Clinical Indicators: Patient had kidney stones with lithotripsy on bilateral ureteral stent placement. He experienced chills, generalized aches, nausea, and vomiting, and presented to ER on 06/08/25. Urinalysis was consistent with a UTI. CT scan showed no hydronephrosis with appropriate positioning of the ureteral stents. He was straight Cath to obtain a urine specimen. One of the stents was partially out, and had to be removed causing the other to come out 06/08/2506/08 Urinalysis: Urine appearance Cloudy, Ur Leukocyte Esterase Large, Urine WBC>182 06/08 Urine culture: Pseudomonas aeruginosa 06/08 Lab results: WBC 26.28, Neutrophils 23.52, lactic acid 2.4, 12.1, 3.7, 2.3, and 3.9 06/08 VS (08:51) 148/82 78 18 102.6 99% RA Treatment: Cefepime HCl 2 GM IVPB Q 8 HRS 06/11-06/17 Rocephin 1 GM IVPB Once 06/08>2 GM 06/09 Please clarify the etiology of the UTI, if known: . [ ] Ureteral stents. [ ] Not related to Ureteral stents [ x] Other condition, please specify _Possibly related to recent ureteroscopy, but not due to stents [ ] Unable to determine (Template Last Revised: January 2021) MTDD
== END 2025-06-17 17:24 | DRG 981 ==
LOC: EC 06:21 → 4SSUR 09:53
PROVIDERS: ADMIT Internal Medicine; ATTEND Internal Medicine
PROC: 0SRS0J9 Replacement of Left Hip Joint, Femoral Surface with Synthetic Substitute, Cemented, Open Approach (ICD-10-PCS; principal; 2025-06-11 15:35)
DX: N99.89 Other postprocedural complications and disorders of genitourinary system (principal); A41.52 Sepsis due to Pseudomonas; R41.4 Neurologic neglect syndrome; I69.354 Hemiplegia and hemiparesis following cerebral infarction affecting left non-dominant side; B96.5 Pseudomonas (aeruginosa) (mallei) (pseudomallei) as the cause of diseases classified elsewhere; M80.052A Age-related osteoporosis with current pathological fracture, left femur, initial encounter for fracture; M80.022A Age-related osteoporosis with current pathological fracture, left humerus, initial encounter for fracture; E11.9 Type 2 diabetes mellitus without complications; I11.9 Hypertensive heart disease without heart failure; N39.0 Urinary tract infection, site not specified; Z86.74 Personal history of sudden cardiac arrest; K21.9 Gastro-esophageal reflux disease without esophagitis; E78.5 Hyperlipidemia, unspecified; I25.10 Atherosclerotic heart disease of native coronary artery without angina pectoris; N20.0 Calculus of kidney; N21.0 Calculus in bladder; N40.0 Benign prostatic hyperplasia without lower urinary tract symptoms; M19.90 Unspecified osteoarthritis, unspecified site; M21.372 Foot drop, left foot; E87.6 Hypokalemia; K59.09 Other constipation; Z79.02 Long term (current) use of antithrombotics/antiplatelets; Z79.82 Long term (current) use of aspirin; W18.30XA Fall on same level, unspecified, initial encounter; Y92.238 Other place in hospital as the place of occurrence of the external cause; R32 Unspecified urinary incontinence; Z96.0 Presence of urogenital implants; Z95.1 Presence of aortocoronary bypass graft; Z95.5 Presence of coronary angioplasty implant and graft; Z86.19 Personal history of other infectious and parasitic diseases; I25.2 Old myocardial infarction; Z87.442 Personal history of urinary calculi; Z79.899 Other long term (current) drug therapy; Z90.79 Acquired absence of other genital organ(s); Z82.49 Family history of ischemic heart disease and other diseases of the circulatory system; Z91.81 History of falling; Y83.8 Other surgical procedures as the cause of abnormal reaction of the patient, or of later complication, without mention of misadventure at the time of the procedure
CPT/HCPCS: 36410; 36415; 51798; 70450; 71046; 73501; 73502; 74177; 76937; 80048; 80053; 81001; 82306; 83605; 84145; 85025; 87040; 87077; 87086; 87186; 87324; 87636; 93306; 94760; 96361; 96365; 96366; 96367; 96375; 96376; 99285